=== PATIENT | male | born 1970 | race Caucasian/White ===

== ENCOUNTER 2019-08-06 11:14 | Emergency (ER) | payer SELFPAY ==
--- NOTE | 2019-08-06 11:30 | ER Document Report ---
ED Medical Screen (RME) - General Chief Complaint: Alcohol Withdrawl Stated Complaint: ALCOHOL WITHDRAWL Time Seen by Provider: 08/06/19 11:26 Mode of Arrival: Ambulatory Information source: Patient Notes: This 48-year-old male presents emergency department with high blood pressure. Patient reports he went to [facility] but they sent him over here because his vital signs were off. Patient reports he has a history of high blood pressure has not taken his medications this morning. Patient reports he drinks 1/5 of whiskey every day for the past 20 years. He reports he feels a little anxious but denies chest pain shortness of breath. Patient was instructed to take his morning antihypertensive medications which were clonidine amlodipine and atenolol. I have greeted and performed a rapid initial assessment of this patient. A comprehensive ED assessment and evaluation of the patient, analysis of test results and completion of the medical decision making process will be conducted by additional ED providers. Dictation of this chart was performed using voice recognition software; therefore, there may be some unintended grammatical errors. - Related Data Allergies/Adverse Reactions: No Known Allergies Allergy (Verified 08/06/19 11:26) Physical Exam - Vital signs Vitals: Temp Pulse Resp BP Pulse Ox 97.9 F 137 H 22 H 211/133 H 98 08/06/19 11:21 08/06/19 11:21 08/06/19 11:21 08/06/19 11:21 08/06/19 11:21 Course - Vital Signs Vital signs: Temp Pulse Resp BP Pulse Ox 97.9 F 137 H 22 H 211/133 H 98 08/06/19 11:21 08/06/19 11:21 08/06/19 11:21 08/06/19 11:21 08/06/19 11:21
[2019-08-06 12:08] LABS: ABSOLUTE LYMPHOCYTES (AUTO) 1.1 10^3/uL (0.5-4.7); ABSOLUTE MONOCYTES (AUTO) 0.4 10^3/uL (0.1-1.4); ABSOLUTE NEUT (AUTO) 6.1 10^3/uL (1.7-8.2); BASOPHILS % (AUTO) 0.5 % (0-2); EOSINOPHILS % (AUTO) 0.2 % (0-6); HEMATOCRIT 47.8 % (37.9-51.0); HEMOGLOBIN 16.2 g/dL (13.5-17.0); LYMPHOCYTES % (AUTO) 14.5 % (13-45); MEAN CORPUSCULAR HEMOGLOBIN 30.9 pg (27.0-33.4); MEAN CORPUSCULAR VOLUME 91 fl (80-97); PLATELET COUNT 130 10^3/uL (150-450); RED BLOOD COUNT 5.25 10^6/uL (4.35-5.55); RED CELL DISTRIBUTION WIDTH 14.4 % (11.5-14.0); SEGMENTED NEUTROPHILS % (AUTO) 79.8 % (42-78); TOTAL CELLS COUNTED % (AUTO) 100 %; WHITE BLOOD COUNT 7.7 10^3/uL (4.0-10.5)
--- NOTE | 2019-08-06 12:12 | EKG REPORT ---
SEVERITY:- ABNORMAL ECG - SINUS TACHYCARDIA PROBABLE INFERIOR INFARCT, OLD , CLINICAL CORRELATION NEEDED. : Confirmed by: Nicholas Amin MD 06-Aug-2019 12:11:43
[2019-08-06 12:15] LABS: APPEARANCE,URINE SLIGHTLY-CLOUDY; BILIRUBIN,URINE SMALL (NEGATIVE); COLOR,URINE AMBER; GLUCOSE, URINE NEGATIVE (NEGATIVE); KETONES,URINE 20 mg/dL (NEGATIVE); LEUKOCYTE ESTERASE,URINE TRACE (NEGATIVE); NITRITE,URINE NEGATIVE (NEGATIVE); PROTEIN,URINE >=500 mg/dL (NEGATIVE); URINE SPECIFIC GRAVITY 1.028; UROBILINOGEN,URINE NEGATIVE mg/dL (<2.0)
[2019-08-06 12:25] LABS: URINE AMPHETAMINES SCREEN NEGATIVE; URINE BARBITURATES SCREEN NEGATIVE; URINE COCAINE SCREEN NEGATIVE; URINE MARIJUANA (THC) SCREEN NEGATIVE; URINE METHADONE SCREEN NEGATIVE; URINE PHENCYCLIDINE SCREEN NEGATIVE
[2019-08-06] MEDS ORDERED: NORMAL SALINE 1000 ML 1,000 ML IV PRN (12:25)
[2019-08-06] MEDS ORDERED: THIAMINE HCL 100 MG, FOLIC ACID 1 MG in NORMAL SALINE 250 ML IV ONE (12:25)
[2019-08-06 12:27] LABS: URINE BENZODIAZEPINES SCREEN UNCONFIRMED POSITIVE
[2019-08-06 12:28] LABS: ALBUMIN 5.1 g/dL (3.5-5.0); ALKALINE PHOSPHATASE 98 U/L (38-126); ANION GAP 14 (5-19); ASPARTATE AMINO TRANSFERASE 205 U/L (17-59); BILIRUBIN,DIRECT 0.3 mg/dL (0.0-0.4); BILIRUBIN,TOTAL 1.1 mg/dL (0.2-1.3); BLOOD UREA NITROGEN 8 mg/dL (7-20); CALCIUM 9.6 mg/dL (8.4-10.2); CARBON DIOXIDE 27 mmol/L (22-30); CHLORIDE 98 mmol/L (98-107); GLUCOSE 116 mg/dL (75-110); POTASSIUM 3.4 mmol/L (3.6-5.0); TOTAL PROTEIN 8.8 g/dL (6.3-8.2)
[2019-08-06] MEDS ORDERED: LORAZEPAM INJ 2 MG/1 ML VIAL IV ONE (12:33)
[2019-08-06 12:34] LABS: ACETAMINOPHEN < 10 ug/mL (10-30); ALCOHOL < 10 mg/dL (NONE DETECTED); SALICYLATE < 1.0 mg/dL (2.0-20.0)
[2019-08-06] MEDS ORDERED: THIAMINE HCL INJ 200 MG/2 ML VIAL ONE (12:35)
[2019-08-06] MEDS ORDERED: FOLIC ACID INJ 5 MG/1 ML 10 ML VIAL ONE (12:40)
[2019-08-06] MEDS ORDERED: LABETALOL HCL INJ 20 MG/4 ML DISP.SYRIN IV ONE (12:47)
--- NOTE | 2019-08-06 12:55 | ER Document Report ---
ED General - General Chief Complaint: Alcohol Withdrawl Stated Complaint: ALCOHOL WITHDRAWL Time Seen by Provider: 08/06/19 11:26 Primary Care Provider: ROXANNE GRAY MD [Primary Care Provider] - Follow up as needed ROSE ESCOBAR MD [ACTIVE STAFF] - Follow up as needed Mode of Arrival: Ambulatory - [facility] Notes: Patient is a 48-year-old male with history of alcohol dependence, depression, anxiety, and hypertension who presents at the request of the rehab facility for evaluation for having elevated blood pressure. Patient states that he was going there because they had a bed for him to detox from alcohol. Patient states that he drinks 1/5 of whiskey every day since 2009. His last drink was 1.5 days ago. Patient states that he has been able to eat and drink, but does have decreased p.o. intake. He is urinating normally and having normal bowel movements. Denies drug allergies. He has no SI or HI. No visual or auditory hallucinations. Patient states his blood pressure at that time was 190s over 120s, but patient did not take any of his blood pressure medicines this morning. He did take his blood pressure medicines when he got here which include amlodipine, atenolol, and clonidine. Denies any headache, fever, neck pain, changes in vision/speech/mentation/hearing, URI, sore throat, chest pain, palpitations, syncope, cough, shortness of breath, wheeze, dyspnea, abdominal pain, nausea/vomiting/diarrhea, urinary retention, dysuria, hematuria, loss of control of bowel or bladder, numbness/tingling, saddle anesthesia, muscle paralysis/weakness, or rash. - Related Data Allergies/Adverse Reactions: No Known Allergies Allergy (Verified 08/06/19 11:26) Past Medical History - General Information source: Patient - Social History Smoking Status: Current Every Day Smoker Family History: Reviewed & Not Pertinent Patient has suicidal ideation: No Patient has homicidal ideation: No Review of Systems - Review of Systems -: Yes All other systems reviewed and negative Physical Exam - Vital signs Vitals: Temp Pulse Resp BP Pulse Ox 97.9 F 137 H 22 H 211/133 H 98 08/06/19 11:21 08/06/19 11:21 08/06/19 11:21 08/06/19 11:21 08/06/19 11:21 - Notes Notes: PHYSICAL EXAMINATION: GENERAL: Well-appearing, well-nourished and in no acute resp distress. Pt does appear just a little shaky at times. A&Ox4. Answers questions appropriately. HEAD: Atraumatic, normocephalic. EYES: Pupils equal round and reactive to light, extraocular movements intact, sclera anicteric, conjunctiva are normal. ENT: Nares patent and without discharge. oropharynx clear without exudates. No tonsilar hypertrophy or erythema. Moist mucous membranes. NECK: Normal range of motion, supple without lymphadenopathy LUNGS: Breath sounds clear to auscultation bilaterally and equal. No wheezes rales or rhonchi. HEART: Regular rate and rhythm without murmurs, rubs, gallops. ABDOMEN: Soft, nontender, nondistended abdomen. No guarding, no rebound. Normal bowel sounds present. No CVA tenderness bilaterally. Musculoskeletal: FROM to passive/active. Strength 5+/5. Extremities: No cyanosis, clubbing, or edema b/l. Peripheral pulses 2+. Cap illary refill less than 3 seconds. NEUROLOGICAL: Cranial nerves grossly intact. Normal speech, normal gait. Normal sensory, motor exams PSYCH: Normal mood, normal affect. SKIN: Warm, Dry, normal turgor, no rashes or lesions noted. Course - Re-evaluation Re-evalutation: 08/06/19 12:55 Pt did present with tachycardia and significant hypertension, otherwise asymptomatic, but has improved with HR of 88, BP 154/114, and RR of 20, O2 of 96% on RA. He does appear a little shaky. Meds and fluids have been ordered. Labs are otherwise acceptable. 08/06/19 13:46 Patient is an afebrile, well-hydrated, 48-year-old male who presents with elevated blood pressure, otherwise asymptomatic. Vitals are acceptable without significant tachycardia, tachypnea, or hypoxia. PE is otherwise unremarkable. Patient is nontoxic-appearing and is tolerating p.o. without difficulty. Patient's blood pressure is significantly improved with the lowest blood pressure of 123/99. Labs are unremarkable. No further work-up warranted. Patient received fluids, thiamine, folic acid, blood pressure meds, and a dose of Ativan. He has not had any chest pain, shortness of breath, dyspnea, headache, or dysuria. Patient is otherwise medically cleared to go to detox. Low suspicion for any endorgan damage, sepsis, endocarditis, acute intracranial pathology, meningitis, fracture, acute abdomen, or other systemic infection at this time. Patient is aware that this condition can change from initial presentation and needs to monitor symptoms closely for any acute changes. Conservative measures otherwise for symptoms. Recheck with your PCM in 3-5 days or as needed otherwise. Return to the ED with any worsening/concerning symptoms otherwise as reviewed discharge. Patient is in agreement. Sherron is ready for the patient and his friend who is in the room will be taking him upon discharge. - Vital Signs Vital signs: Temp Pulse Resp BP Pulse Ox 97.9 F 137 H 28 H 156/105 H 95 08/06/19 11:21 08/06/19 11:21 08/06/19 14:16 08/06/19 14:16 08/06/19 14:16 - Laboratory Result Diagrams: 08/06/19 11:35 08/06/19 11:35 Laboratory results interpreted by me: 08/06/19 08/06/19 08/06/19 11:35 11:35 11:35 RDW 14.4 H Plt Count 130 L Seg Neutrophils % 79.8 H Potassium 3.4 L Glucose 116 H AST 205 H Total Protein 8.8 H Albumin 5.1 H Urine Protein >=500 H Urine Ketones 20 H Urine Blood SMALL H Urine Bilirubin SMALL H Ur Leukocyte Esterase TRACE H Salicylates < 1.0 L Acetaminophen < 10 L Discharge - Discharge Clinical Impression: Elevated blood pressure reading, Withdrawal complaint Condition: Stable Disposition: HOME, SELF-CARE Additional Instructions: Maintain adequate fluid and food intake Healthy diet Monitor for any worsening symptoms Avoid drug/alcohol use Stop smoking Make sure you are staying hydrated enough to urinate and have normal BM's Recheck with your PCM in 3-5 days or as needed You are to go directly to [facility] upon discharge* Return to the ED with any worsening symptoms and/or development of fever, headache, changes in behavior/mentation/vision/speech, chest pain, palpitations, syncope, shortness of breath, trouble breathing, abdominal pain, n/v/d, blood in stool/urine, loss of control of bowel/bladder, urinary retention, muscle weakness/paralysis, saddle anesthesia, numbness/tingling, suicidal/homicidal ideations, visual/auditory hallucinations, or other worsening symptoms that are concerning to you. Forms: Elevated Blood Pressure, Smoking Cessation Education Referrals: ROXANNE GRAY MD [Primary Care Provider] - Follow up as needed ROSE ESCOBAR MD [ACTIVE STAFF] - Follow up as needed
[2019-08-06 14:20] VITALS: BP 156/105
== END 2019-08-06 14:28 | disposition home or self-care (01) ==
LOC: ER 11:14
DX: I10 Essential (primary) hypertension (principal); Z79.899 Other long term (current) drug therapy; F10.239 Alcohol dependence with withdrawal, unspecified; F17.200 Nicotine dependence, unspecified, uncomplicated; R00.0 Tachycardia, unspecified
CPT/HCPCS: 93005; 36415; 80307 ×4; 85025; 80053; 81001; 93010; J3490 ×2; J2060; J3411; J7030; J7050; 96361; 96365; 96375; 99285

== ENCOUNTER 2019-09-17 10:35 | Inpatient (IN) | payer OTHER ==
[2019-09-17] MEDS ORDERED: HYDROXYZINE PAMOATE 25 MG CAPSULE PO ONE (11:22)
[2019-09-17] MEDS ORDERED: ONDANSETRON HCL 8 MG TABLET PO ONE (11:22)
--- NOTE | 2019-09-17 11:24 | ER Document Report ---
ED Medical Screen (RME) - General Chief Complaint: Alcohol Withdrawl Stated Complaint: ETOH WITHDRAWAL Time Seen by Provider: 09/17/19 11:15 Primary Care Provider: ROXANNE GRAY MD [Primary Care Provider] - Follow up as needed Mode of Arrival: Ambulatory Information source: Patient Notes: 49-year-old male presents to the emergency department with EtOH abuse and withdrawal. Reports he is in the habit of drinking 1/5 of bourbon a day for the past 10 years. He reports he usually starts off his morning drinking but he has not this morning. Last drink was 0200 this morning. Patient reports he has had abdominal pain nausea and vomiting for the last couple days. Report he vomited several times on the way here. Patient is very shaky. Denies drugs. I have greeted and performed a rapid initial assessment of this patient. A comprehensive ED assessment and evaluation of the patient, analysis of test results and completion of the medical decision making process will be conducted by additional ED providers. TRAVEL OUTSIDE OF THE [place] IN LAST 30 DAYS: No - Related Data Allergies/Adverse Reactions: No Known Allergies Allergy (Verified 08/06/19 11:26) Past Medical History - Social History Chew tobacco use (# tins/day): No Frequency of alcohol use: 1/5th Alcohol daily Drug Abuse: None Physical Exam - Vital signs Vitals: Temp Pulse Resp BP Pulse Ox 97.5 F 139 H 20 177/106 H 98 09/17/19 11:04 09/17/19 11:04 09/17/19 11:04 09/17/19 11:04 09/17/19 11:04 Course - Vital Signs Vital signs: Temp Pulse Resp BP Pulse Ox 97.5 F 139 H 20 177/106 H 98 09/17/19 11:04 09/17/19 11:04 09/17/19 11:04 09/17/19 11:04 09/17/19 11:04 Doctor's Discharge - Discharge Referrals: ROXANNE GRAY MD [Primary Care Provider] - Follow up as needed
[2019-09-17] MEDS ORDERED: DIAZEPAM 5 MG TABLET PO ONE ×2 (11:47→13:06)
--- NOTE | 2019-09-17 11:56 | ER Document Report ---
ED General - General Chief Complaint: Alcohol Withdrawl Stated Complaint: ETOH WITHDRAWAL Time Seen by Provider: 09/17/19 11:15 Primary Care Provider: ROXANNE GRAY MD [Primary Care Provider] - Follow up as needed Mode of Arrival: Ambulatory Notes: 49-year-old male presents with possible alcohol withdrawal. Patient states he has been drinking 1/5 of bourbon every day for the last 10 years and last drink was approximately 2:00 this morning. Patient states he feels anxious, has trem ors, nausea/vomiting, abdominal pain, feeling sweaty for the past few days. Patient states he has gone into withdrawal before requiring admission however has never had seizures. TRAVEL OUTSIDE OF THE [place] IN LAST 30 DAYS: No - Related Data Allergies/Adverse Reactions: No Known Allergies Allergy (Verified 08/06/19 11:26) Past Medical History - General Information source: Patient - Social History Smoking Status: Current Every Day Smoker Chew tobacco use (# tins/day): No Frequency of alcohol use: 1/5th Alcohol daily Drug Abuse: None Family History: Reviewed & Not Pertinent Patient has suicidal ideation: No Patient has homicidal ideation: No Review of Systems - Review of Systems Notes: Constitutional: Positive for anxiety and diaphoresis. Negative for fever. HENT: Negative for sore throat. Eyes: Negative for visual changes. Cardiovascular: Negative for chest pain. Respiratory: Negative for shortness of breath. Gastrointestinal: Positive for abdominal pain, nausea, vomiting. Negative for diarrhea. Genitourinary: Negative for dysuria. Musculoskeletal: Negative for back pain. Skin: Negative for rash. Neurological: Positive for tremors. Negative for headaches, weakness or numbness. 10 point ROS negative except as marked above and in HPI. Physical Exam - Vital signs Vitals: Temp Pulse Resp BP Pulse Ox 97.5 F 139 H 20 177/106 H 98 09/17/19 11:04 09/17/19 11:04 09/17/19 11:04 09/17/19 11:04 09/17/19 11:04 - Notes Notes: GENERAL: Well-appearing, well-nourished and anxious. HEAD: Atraumatic, normocephalic. EYES: Extraocular movements intact, sclera anicteric, conjunctiva are normal. NECK: Normal range of motion, supple without lymphadenopathy or JVD. LUNGS: Breath sounds clear to auscultation bilaterally and equal. No wheezes rales or rhonchi. HEART: Regular rate and rhythm without murmurs, rubs or gallops. ABDOMEN: Soft, nontender. No guarding, no rebound. No masses appreciated. EXTREMITIES: Normal range of motion, no pitting or edema. No clubbing or cyanosis. NEUROLOGICAL: Cranial nerves II through XII grossly intact. Normal speech, normal gait. PSYCH: Normal mood, normal affect. SKIN: Warm, Dry, normal turgor, no rashes or lesions noted. Course - Re-evaluation Re-evalutation: 09/17/19 11:56 patient presents for possible alcohol withdrawal. Patient has tremors, anxiety, abdominal pain, nausea/vomiting. Patient appears anxious. Patient abdomen soft nontender. CIWA ordered along with lab work. Vistaril, Zofran, Valium ordered. 09/17/19 12:17 CIWA 13 09/17/19 13:12 Pt continues to have tremor and elevated BP. Discussed pt with Dr. Tejada, attending, who recommended another dose of Valium and Ativan IV and admission once labwork resulted. 09/17/19 14:07 Pt's Mg is 1.0 and K is 2.8. 09/17/19 14:[address] Montiel, hospitalist, who stated that pt may need ICU due to benzo drip. Discussed with Dr. William, heel layer, who accepted pt for admission. - Vital Signs Vital signs: Temp Pulse Resp BP Pulse Ox 97.5 F 139 H 20 203/135 H 96 09/17/19 11:04 09/17/19 11:04 09/17/19 14:00 09/17/19 13:01 09/17/19 14:00 - Laboratory Result Diagrams: 09/17/19 13:00 09/17/19 13:00 Laboratory results interpreted by me: 09/17/19 09/17/19 13:00 13:00 RDW 15.6 H Plt Count 120 L Potassium 2.8 L* Chloride 86 L Carbon Dioxide 20 L Anion Gap 31 H BUN 4 L Glucose 161 H Magnesium 1.0 L* Total Bilirubin 1.9 H Direct Bilirubin 1.1 H AST 375 H Alkaline Phosphatase 145 H Total Protein 8.9 H Albumin 5.2 H Lipase 361.1 H Salicylates < 1.0 L Acetaminophen < 10 L Discharge - Discharge Clinical Impression: Hypokalemia, Hypomagnesemia Alcohol withdrawal Qualifiers: Complication of substance-induced condition: with unspecified complication Qualified Code(s): F10.239 - Alcohol dependence with withdrawal, unspecified Condition: Stable Disposition: ADMITTED INPATIENT Admitting Provider: Stewart (Public Service Representative) Unit Admitted: ICU Referrals: ROXANNE GRAY MD [Primary Care Provider] - Follow up as needed
[2019-09-17] MEDS ORDERED: ONDANSETRON 4 MG TAB.RAPDIS ONE (12:20)
[2019-09-17] MEDS: NORMAL SALINE 1000 ML 1,000 ML IV PRN ×2 (13:01→13:33)
[2019-09-17] MEDS ORDERED: LORAZEPAM INJ 2 MG/1 ML VIAL IV ONE ×2 (13:06→14:05)
[2019-09-17 13:22] LABS: HEMATOCRIT 46.3 % (37.9-51.0); HEMOGLOBIN 16.5 g/dL (13.5-17.0); MEAN CORPUSCULAR HEMOGLOBIN 31.5 pg (27.0-33.4); MEAN CORPUSCULAR HGB CONC 35.5 g/dL (32.0-36.0); MEAN CORPUSCULAR VOLUME 89 fl (80-97); PLATELET COUNT 120 10^3/uL (150-450); RED BLOOD COUNT 5.23 10^6/uL (4.35-5.55); RED CELL DISTRIBUTION WIDTH 15.6 % (11.5-14.0); WHITE BLOOD COUNT 10.2 10^3/uL (4.0-10.5)
[2019-09-17 13:38] LABS: INTERNATIONAL RATION (INR) 0.97; PROTHROMBIN TIME 12.9 SEC (11.4-15.4)
--- NOTE | 2019-09-17 13:43 | EKG REPORT ---
SEVERITY:- ABNORMAL ECG - SINUS TACHYCARDIA BORDERLINE INFERIOR Q WAVES REPOL ABNRM SUGGESTS ISCHEMIA, DIFFUSE LEADS BIATRIAL ENLARGEMENT : Confirmed by: Nicholas Amin MD 17-Sep-2019 13:43:04
[2019-09-17 13:44] LABS: ALBUMIN 5.2 g/dL (3.5-5.0); ALCOHOL 32 mg/dL (NONE DETECTED); ALKALINE PHOSPHATASE 145 U/L (38-126); ASPARTATE AMINO TRANSFERASE 375 U/L (17-59); BILIRUBIN,DIRECT 1.1 mg/dL (0.0-0.4); BILIRUBIN,TOTAL 1.9 mg/dL (0.2-1.3); BLOOD UREA NITROGEN 4 mg/dL (7-20); CALCIUM 9.6 mg/dL (8.4-10.2); CHLORIDE 86 mmol/L (98-107); GLUCOSE 161 mg/dL (75-110); TOTAL PROTEIN 8.9 g/dL (6.3-8.2)
[2019-09-17 13:45] LABS: ACETAMINOPHEN < 10 ug/mL (10-30); SALICYLATE < 1.0 mg/dL (2.0-20.0)
[2019-09-17 13:49] LABS: CARBON DIOXIDE 20 mmol/L (22-30)
[2019-09-17 13:51] LABS: ANION GAP 31 (5-19)
[2019-09-17 13:53] LABS: POTASSIUM 2.8 mmol/L (3.6-5.0)
[2019-09-17] MEDS ORDERED: POTASSIUM CHLORIDE 20 MEQ PACKET PO ONE (14:05)
[2019-09-17] MEDS ORDERED: POTASSI CL 20 MEQ/50 ML RIDER 20 MEQ/50 ML RTUPB IV ONE (14:05)
[2019-09-17] MEDS ORDERED: HYDROCHLOROTHIAZIDE 25 MG TABLET PO ONE (14:12)
[2019-09-17 14:14] LABS: ABSOLUTE LYMPHOCYTES# (MANUAL) 1.8 10^3/uL (0.5-4.7); ABSOLUTE MONOCYTES # (MANUAL) 0.5 10^3/uL (0.1-1.4); BASOPHILS % (MANUAL) 0 % (0-2); EOSINOPHILS % (MANUAL) 0 % (0-6); LYMPHOCYTES % (MANUAL) 18 % (13-45); MONOCYTES % (MANUAL) 5 % (3-13); SEGMENTED NEUTROPHILS % (MAN) 77 % (42-78); TOTAL CELLS COUNTED 100
[2019-09-17 14:15] LABS: ANISOCYTOSIS SLIGHT; PLATELET COMMENT DECREASED
[2019-09-17] MEDS ORDERED: AMLODIPINE BESYLATE 10 MG TABLET PO ONE (14:15)
[2019-09-17] MEDS ORDERED: NS IV ONE (14:17)
[2019-09-17] MEDS ORDERED: POTASSI CL IV ONE (14:17)
[2019-09-17] MEDS: MAGNESIUM SULFATE/D5W 1 GM/100 ML RTUPB IV SCH ×2 (14:44→15:24)
[2019-09-17] MEDS ORDERED: LORAZEPAM 24 MG/240 ML BAG IV PRN (15:26)
[2019-09-17] MEDS ORDERED: ONDANSETRON HCL INJ/PF 4 MG/2 ML SDV IV PRN (15:40)
[2019-09-17] MEDS ORDERED: HYDRALAZINE HCL INJ/PF 20 MG/1 ML SDV IV PRN (15:50)
[2019-09-17 16:23] LABS: APPEARANCE,URINE SLIGHTLY-CLOUDY; BILIRUBIN,URINE NEGATIVE (NEGATIVE); COLOR,URINE AMBER; GLUCOSE, URINE 50 mg/dL (NEGATIVE); KETONES,URINE 20 mg/dL (NEGATIVE); LEUKOCYTE ESTERASE,URINE NEGATIVE (NEGATIVE); NITRITE,URINE NEGATIVE (NEGATIVE); PROTEIN,URINE >=500 mg/dL (NEGATIVE); URINE SPECIFIC GRAVITY 1.022
--- NOTE | 2019-09-17 16:24 | CRITICAL CARE ADMISSION REPORT ---
HPI Date:: 09/17/19 - Critical Care Attending Note HPI: Pt is a 49 yo man with alcohol abuse who drinks 1/5 Vodka each day. His last drink was around 2 am this am. He presents to the ED with N/V, HTN, tremors. He was found to be in alcohol withdrawal. He received several dosed of IV ativan and was ultimately started on an ativan infusion. Upon my assessment of the pt, he is still in the ED awaiting an ICU bed. He states he has tried to detox from ETOH before and ended up in the hospital for 5 days for ETOH withdrawal. He states he has never had to be intubated. He denies any F/C/CP/SOA/Melena/hemoptysis/hematochezia. Past Medical History Past Medical History: HTN Depression Pulmonary Medical History: Reports: None Social/Family History - Social History Smoking Status: Current Every Day Smoker Frequency of Alcohol Use: Heavy Last Alcohol Use: 09/17/19 - Medication/Allergies Home Medications: Amlodipine Besylate [Norvasc 10 mg Tablet] 1 mg PO DAILY 09/17/19 Atenolol 100 mg PO DAILY 09/17/19 Allergies/Adverse Reactions: No Known Allergies Allergy (Verified 08/06/19 11:26) Review of Systems Review of Systems: per HPI Physical Exam Vital Signs: Temp Pulse Resp BP Pulse Ox 98.2 F 139 H 29 H 158/90 H 94 09/17/19 16:05 09/17/19 11:04 09/17/19 16:05 09/17/19 16:05 09/17/19 16:05 Intake & Output 09/16/19 09/17/19 09/18/19 06:59 06:59 06:59 Intake Total 1600 Balance 1600 Weight 109.5 kg Weight/Height Weight 109.5 kg Height 5 ft 9 in General appearance: PRESENT: well-developed, well-nourished, other - Ill- apperating, tremulous, diaphoretic Head exam: PRESENT: atraumatic, normocephalic Respiratory exam: PRESENT: clear to auscultation katerina, unlabored Cardiovascular exam: PRESENT: tachycardia GI/Abdominal exam: PRESENT: soft, other - non-tender,non-distended Extremities exam: PRESENT: other - no edema Neurological exam: PRESENT: alert, awake, other - tremulous Psychiatric exam: PRESENT: anxious Laboratory/Radiographs Laboratory Results: 09/17/19 13:00 09/17/19 13:00 09/17/19 09/17/19 13:00 13:00 WBC 10.2 RBC 5.23 Hgb 16.5 Hct 46.3 MCV 89 MCH 31.5 MCHC 35.5 RDW 15.6 H Plt Count 120 L Seg Neutrophils % Not Reportable Sodium 137.1 Potassium 2.8 L* Chloride 86 L Carbon Dioxide 20 L Anion Gap 31 H BUN 4 L Creatinine 1.02 Est GFR ( Amer) > 60 Glucose 161 H Calcium 9.6 Magnesium 1.0 L* Total Bilirubin 1.9 H AST 375 H Alkaline Phosphatase 145 H Total Protein 8.9 H Albumin 5.2 H Lipase 361.1 H Critical Time Critical Time (minutes): 45 -: The care of a critically ill patient is dynamic. This note represents a static moment in the admission process. Orders and treatments may be given simultaneously and urgently, and time is not contact center representative of the treatment process. This patient requires Critical Care secondary to life threatening organ or limb dysfunction. Without Critical Care services, the patient is at risk for increased mortality and morbidity. Provider Note Provider Note: Assessment: Critically ill 49yo man with acute alcohol withdrawal, alcohol abuse, HTN Plan: 1. Respiratory: stable on NC. Continue to monitor respiratory status closely 2. CV.HTN. Resume home BP meds. Prn labetalol and hydralazine 3. Pscyh: acute alcohol withdrawal. Continue ativan drip while in ED. Once pt gets to ICU, will d/c ativan drip and start precedex. CIWA scale. IV thiamine and folic acid. 4. Electroyles: hypokalemia and hypomagnesemia. Potassium and magnesium replaced. Will repeat potassium and magnesium levels later today 5. Nutrition:NPO 6. Endocrine: monitor blood sugars 7. Prophylaxis: sq heparin Critical care time= 45 min, excluding procedures
[2019-09-17] MEDS ORDERED: DEXTROSE 50%-WATER 25 GM/50 ML DISP.SYRIN IV PRN ×2 (16:25)
[2019-09-17] MEDS ORDERED: GLUCAGON,HUMAN RECOMB 1 MG INJ IM PRN (16:25)
[2019-09-17] MEDS ORDERED: DEXTROSE 40% GEL 15 GM TUBE PO PRN ×2 (16:25)
[2019-09-17] MEDS: DEXMEDETOMIDINE IN NS 400 MCG/100 ML RTUPB IV PRN (17:45)
[2019-09-17] MEDS: THIAMINE HCL 100 MG, FOLIC ACID 1 MG in NORMAL SALINE 250 ML IV SCH (18:00)
[2019-09-17] MEDS ORDERED: INFLUENZA QUAD (6MOS+) 2019-20 VAC 0.5 ML SYR IM ONE (18:03)
[2019-09-17] MEDS: LABETALOL HCL INJ 20 MG/4 ML DISP.SYRIN IV PRN (18:15)
[2019-09-17] MEDS: INSULIN REG, HUMAN 100 UNIT/ML 3 ML VIAL (PYX) SUBCUT SCH (18:23)
[2019-09-17 19:46] LABS: ANION GAP 16 (5-19); BLOOD UREA NITROGEN 3 mg/dL (7-20); CALCIUM 7.7 mg/dL (8.4-10.2); CARBON DIOXIDE 25 mmol/L (22-30); CHLORIDE 95 mmol/L (98-107); GLUCOSE 110 mg/dL (75-110)
[2019-09-17 19:49] LABS: POTASSIUM 2.8 mmol/L (3.6-5.0)
[2019-09-17] MEDS ORDERED: MAGNESIUM SULFATE/D5W 1 GM/100 ML RTUPB IV ONE (20:17)
[2019-09-17] MEDS: RINGERS SOLUTION,LACTATED 1,000 ML IV PRN (20:41)
[2019-09-17] MEDS: POTASSI CL 20 MEQ/50 ML RIDER 20 MEQ/50 ML RTUPB IV SCH ×2 (20:46→23:29)
[2019-09-17 20:51] LABS: URINE AMPHETAMINES SCREEN NEGATIVE; URINE BARBITURATES SCREEN NEGATIVE; URINE COCAINE SCREEN NEGATIVE; URINE MARIJUANA (THC) SCREEN NEGATIVE; URINE METHADONE SCREEN NEGATIVE; URINE PHENCYCLIDINE SCREEN NEGATIVE
[2019-09-17 20:53] LABS: URINE BENZODIAZEPINES SCREEN UNCONFIRMED POSITIVE
[2019-09-18] MEDS: DEXMEDETOMIDINE IN NS 400 MCG/100 ML RTUPB IV PRN (01:06)
[2019-09-18] MEDS: INSULIN REG, HUMAN 100 UNIT/ML 3 ML VIAL (PYX) SUBCUT SCH ×3 (01:09→13:15)
[2019-09-18 02:44] LABS: HEMATOCRIT 37.6 % (37.9-51.0); MEAN CORPUSCULAR HEMOGLOBIN 31.5 pg (27.0-33.4); MEAN CORPUSCULAR HGB CONC 35.2 g/dL (32.0-36.0); MEAN CORPUSCULAR VOLUME 90 fl (80-97); RED CELL DISTRIBUTION WIDTH 15.3 % (11.5-14.0); WHITE BLOOD COUNT 4.4 10^3/uL (4.0-10.5)
[2019-09-18 02:48] LABS: HEMOGLOBIN 13.2 g/dL (13.5-17.0)
[2019-09-18 02:59] LABS: ANION GAP 12 (5-19); BLOOD UREA NITROGEN 2 mg/dL (7-20); CARBON DIOXIDE 29 mmol/L (22-30); CHLORIDE 95 mmol/L (98-107); GLUCOSE 111 mg/dL (75-110)
[2019-09-18 03:09] LABS: POTASSIUM 2.7 mmol/L (3.6-5.0)
[2019-09-18 03:14] LABS: PLATELET COUNT 72 10^3/uL (150-450)
[2019-09-18] MEDS: POTASSI CL 20 MEQ/50 ML RIDER 20 MEQ/50 ML RTUPB IV SCH ×3 (03:36→08:51)
[2019-09-18] MEDS ORDERED: MAGNESIUM SULFATE/D5W 1 GM/100 ML RTUPB IV ONE ×2 (04:00→17:31)
[2019-09-18] MEDS: HEPARIN SOD (PORCINE) 5,000 UNIT/ML 1 ML VIAL SUBCUT SCH ×3 (05:46→22:03)
[2019-09-18] MEDS: RINGERS SOLUTION,LACTATED 1,000 ML IV PRN ×2 (07:09→22:11)
[2019-09-18] MEDS ORDERED: (PENDING PHARMACY ID) (Atenolol [Atenolol] 100 MG) PO SCH (10:00)
[2019-09-18] MEDS ORDERED: AMLODIPINE BESYLATE 10 MG TABLET PO SCH (10:00)
[2019-09-18] MEDS: HYDROCHLOROTHIAZIDE 25 MG TABLET PO SCH (10:34)
[2019-09-18] MEDS: AMLODIPINE BESYLATE 10 MG TABLET PO SCH (10:35)
[2019-09-18] MEDS: MULTIVITAMIN TABLET PO SCH (10:35)
[2019-09-18] MEDS: ATENOLOL 50 MG TABLET PO SCH (10:36)
--- NOTE | 2019-09-18 12:13 | PDOC CRITICAL CARE PROG REPORT ---
General Date:: 09/18/19 ICU Day:: 2 Hospital Day:: 2 Resuscitation Status: Full Code Events in the past 12 to 24 Hours:: HR and BP stable. Not agitated. Review of systems relevant to events:: Neuro, CV. Reason for ICU Addmission:: Possible need for high dose ativan and intubation - Medications: Medications reviewed and adjusted accordingly: Yes Vasopressors:: None Sedation:: Precedex Physical Exam Vital Signs: Temp Pulse Resp BP Pulse Ox 98.5 F 96 18 98/71 L 99 09/18/19 08:00 09/18/19 10:00 09/18/19 11:36 09/18/19 11:36 09/18/19 11:00 Intake & Output 09/17/19 09/18/19 09/19/19 06:59 06:59 06:59 Intake Total 4434.2 1050 Output Total 875 200 Balance 3559.2 850 Weight 112.4 kg Weight/Height Weight 112.4 kg Height 5 ft 9 in General appearance: PRESENT: no acute distress, cooperative Head exam: PRESENT: atraumatic, normocephalic Eye exam: PRESENT: EOMI, PERRLA Ear exam: PRESENT: normal external ear exam Mouth exam: PRESENT: dry mucosa Respiratory exam: PRESENT: clear to auscultation katerina. ABSENT: rales, rhonchi, wheezes Cardiovascular exam: PRESENT: RRR. ABSENT: diastolic murmur, rubs, systolic murmur GI/Abdominal exam: PRESENT: normal bowel sounds, soft. ABSENT: distended, guarding, mass, organolmegaly, rebound, tenderness Rectal exam: PRESENT: deferred Extremities exam: PRESENT: full ROM. ABSENT: calf tenderness, clubbing, pedal edema Musculoskeletal exam: PRESENT: ambulatory Neurological exam: PRESENT: alert, altered, awake, oriented to person, oriented to place, oriented to time, oriented to situation Skin exam: PRESENT: dry, intact, warm. ABSENT: cyanosis, rash Laboratory/Radiographs Laboratory Results: 09/18/19 02:27 09/18/19 06:07 09/17/19 09/17/19 09/17/19 13:00 13:00 16:00 WBC 10.2 RBC 5.23 Hgb 16.5 Hct 46.3 MCV 89 MCH 31.5 MCHC 35.5 RDW 15.6 H Plt Count 120 L Seg Neutrophils % Not Reportable Sodium 137.1 Potassium 2.8 L* Chloride 86 L Carbon Dioxide 20 L Anion Gap 31 H BUN 4 L Creatinine 1.02 Est GFR ( Amer) > 60 Est GFR (Non-Af Amer) Glucose 161 H Calcium 9.6 Magnesium 1.0 L* Total Bilirubin 1.9 H AST 375 H Alkaline Phosphatase 145 H Total Protein 8.9 H Albumin 5.2 H Lipase 361.1 H Urine Color PHILOMENA Urine Appearance SLIGHTLY-CLOUDY Urine pH 6.0 Ur Specific Tab[place] 1.022 Urine Protein >=500 H Urine Glucose (UA) 50 H Urine Ketones 20 H Urine Blood MODERATE H Urine Nitrite NEGATIVE Ur Leukocyte Esterase NEGATIVE Urine WBC (Auto) 1 Urine RBC (Auto) 0 09/17/19 09/18/19 09/18/19 19:15 02:27 02:27 WBC 4.4 RBC 4.20 L Hgb 13.2 L D Hct 37.6 L MCV 90 MCH 31.5 MCHC 35.2 RDW 15.3 H Plt Count 72 L Seg Neutrophils % Sodium 135.6 L 136.2 L Potassium 2.8 L* 2.7 L* Chloride 95 L 95 L Carbon Dioxide 25 29 Anion Gap 16 12 BUN 3 L 2 L Creatinine 0.87 0.86 Est GFR ( Amer) > 60 > 60 Est GFR (Non-Af Amer) Glucose 110 111 H Calcium 7.7 L 8.0 L Magnesium 1.4 L 1.5 L Total Bilirubin AST Alkaline Phosphatase Total Protein Albumin Lipase Urine Color Urine Appearance Urine pH Ur Specific Tabiona Urine Protein Urine Glucose (UA) Urine Ketones Urine Blood Urine Nitrite Ur Leukocyte Esterase Urine WBC (Auto) Urine RBC (Auto) 09/18/19 06:07 WBC RBC Hgb Hct MCV MCH MCHC RDW Plt Count Seg Neutrophils % Sodium Cancelled Potassium Cancelled Chloride Cancelled Carbon Dioxide Cancelled Anion Gap Cancelled BUN Cancelled Creatinine Cancelled Est GFR ( Amer) Cancelled Est GFR (Non-Af Amer) Cancelled Glucose Cancelled Calcium Cancelled Magnesium Cancelled Total Bilirubin AST Alkaline Phosphatase Total Protein Albumin Lipase Urine Color Urine Appearance Urine pH Ur Specific Tabiona Urine Protein Urine Glucose (UA) Urine Ketones Urine Blood Urine Nitrite Ur Leukocyte Esterase Urine WBC (Auto) Urine RBC (Auto) All labs, radiographs, diagnostic studies and EKGs were personally reviewed: Yes In addition, reports of radiographic and diagnostic studies were read: Yes Assessment and Plan - Diagnosis (1) Alcohol withdrawal Qualifiers: Complication of substance-induced condition: with unspecified complication Qualified Code(s): F10.239 - Alcohol dependence with withdrawal, unspecified Is this a current diagnosis for this admission?: Yes Plan: Continue ativan. Try off Precedex. If stable consider downgrade. (2) Hypokalemia Is this a current diagnosis for this admission?: Yes Plan: Level still 2.7. Continue loading (3) Hypomagnesemia Is this a current diagnosis for this admission?: Yes Plan: Level 1.5 continue loading. Plan Summary: Give more potassium and magnesium. Try stopping precedex. Critical Time Critical Time (minutes): 35 Level of Care: ICU Anticipated discharge: Home Within: Other - 4-5 days -: 1. The care of a critical patient is a dynamic process. This note is a exhibit display representative synopsis but static in nature. The timeframe for treatments given in order is not necessarily the actual time these treatments may have been done. 2. This patient requires critical care secondary to ongoing requirements for therapy not offered or safe outside the critical care environment. Transfer to a lower level of care will result in altered life or limb morbidity and mortal ity. 3. Multidisciplinary rounds completed. 4. ABCDE bundle addressed.
[2019-09-18] MEDS: MAGNESIUM SULFATE/D5W 1 GM/100 ML RTUPB IV SCH ×2 (13:29→17:32)
[2019-09-18] MEDS: POTASSIUM CHLORIDE 10 MEQ TABLET.ER PO SCH ×2 (13:29→22:00)
[2019-09-18] MEDS ORDERED: DIPHENOXYLATE HCL/ATROP SULF 2.5-0.025 MG TABLET PO PRN (13:32)
[2019-09-18 14:17] LABS: ANION GAP 15 (5-19); BLOOD UREA NITROGEN 2 mg/dL (7-20); CALCIUM 8.6 mg/dL (8.4-10.2); CARBON DIOXIDE 29 mmol/L (22-30); CHLORIDE 90 mmol/L (98-107); GLUCOSE 132 mg/dL (75-110)
[2019-09-18 14:21] LABS: POTASSIUM 2.9 mmol/L (3.6-5.0)
[2019-09-18] MEDS: THIAMINE HCL 100 MG, FOLIC ACID 1 MG in NORMAL SALINE 250 ML IV SCH (17:26)
[2019-09-18] MEDS: LORAZEPAM INJ 2 MG/1 ML VIAL IV PRN (17:33)
[2019-09-18] MEDS: LORAZEPAM 1 MG TABLET PO SCH ×3 (17:33→22:00)
[2019-09-18] MEDS ORDERED: AMLODIPINE BESYLATE 5 MG TABLET PO ONE (21:00)
[2019-09-19] MEDS: LORAZEPAM 1 MG TABLET PO SCH ×6 (01:05→21:39)
[2019-09-19] MEDS: DEXMEDETOMIDINE IN NS 400 MCG/100 ML RTUPB IV PRN ×5 (03:18→23:42)
[2019-09-19 04:13] LABS: HEMATOCRIT 38.9 % (37.9-51.0); HEMOGLOBIN 13.7 g/dL (13.5-17.0); MEAN CORPUSCULAR HEMOGLOBIN 31.7 pg (27.0-33.4); MEAN CORPUSCULAR HGB CONC 35.3 g/dL (32.0-36.0); MEAN CORPUSCULAR VOLUME 90 fl (80-97); RED BLOOD COUNT 4.34 10^6/uL (4.35-5.55); RED CELL DISTRIBUTION WIDTH 15.3 % (11.5-14.0); WHITE BLOOD COUNT 4.6 10^3/uL (4.0-10.5)
[2019-09-19 04:26] LABS: ANION GAP 11 (5-19); CALCIUM 8.8 mg/dL (8.4-10.2); CARBON DIOXIDE 33 mmol/L (22-30); CHLORIDE 94 mmol/L (98-107); GLUCOSE 103 mg/dL (75-110)
[2019-09-19 04:35] LABS: BLOOD UREA NITROGEN < 2 mg/dL (7-20)
[2019-09-19 04:37] LABS: PLATELET COUNT 82 10^3/uL (150-450)
[2019-09-19] MEDS: LORAZEPAM INJ 2 MG/1 ML VIAL IV PRN ×6 (05:31→23:59)
[2019-09-19] MEDS ORDERED: LORAZEPAM INJ 2 MG/1 ML VIAL ONE (06:02)
[2019-09-19] MEDS ORDERED: LORAZEPAM INJ 2 MG/1 ML VIAL IV ONE ×2 (06:02→08:45)
[2019-09-19] MEDS: POTASSIUM CHLORIDE 10 MEQ TABLET.ER PO SCH (06:26)
[2019-09-19] MEDS: HEPARIN SOD (PORCINE) 5,000 UNIT/ML 1 ML VIAL SUBCUT SCH ×3 (06:26→21:02)
--- NOTE | 2019-09-19 07:48 | PDOC CRITICAL CARE PROG REPORT ---
General Date:: 09/19/19 ICU Day:: 3 Hospital Day:: 3 Resuscitation Status: Full Code Events in the past 12 to 24 Hours:: More agitated and in 4 point restraints. Review of systems relevant to events:: Neuro, CV. Reason for ICU Addmission:: Possible need for high dose ativan and intubation - Medications: Medications reviewed and adjusted accordingly: Yes Vasopressors:: None Sedation:: Ativan and precedex Physical Exam Vital Signs: Temp Pulse Resp BP Pulse Ox 98.6 F 90 17 147/94 H 96 09/19/19 03:32 09/18/19 20:00 09/19/19 02:33 09/19/19 02:33 09/19/19 02:33 Intake & Output 09/18/19 09/19/19 09/20/19 06:59 06:59 06:59 Intake Total 4434.2 3465 Output Total 875 2500 Balance 3559.2 965 Weight 112.4 kg 111.9 kg Weight/Height Weight 111.9 kg Height 5 ft 9 in General appearance: PRESENT: obese Head exam: PRESENT: atraumatic, normocephalic Eye exam: PRESENT: conjunctiva pink, EOMI, PERRLA. ABSENT: scleral icterus Ear exam: PRESENT: normal external ear exam Mouth exam: PRESENT: moist, tongue midline Respiratory exam: PRESENT: clear to auscultation katerina. ABSENT: rales, rhonchi, wheezes Cardiovascular exam: PRESENT: tachycardia Vascular exam: PRESENT: normal capillary refill GI/Abdominal exam: PRESENT: normal bowel sounds, soft. ABSENT: distended, guarding, mass, organolmegaly, rebound, tenderness Rectal exam: PRESENT: deferred Extremities exam: PRESENT: full ROM. ABSENT: calf tenderness, clubbing, pedal edema Musculoskeletal exam: PRESENT: normal inspection Neurological exam: PRESENT: alert, altered, awake Psychiatric exam: PRESENT: agitated Skin exam: PRESENT: dry, intact, warm. ABSENT: cyanosis, rash Laboratory/Radiographs Laboratory Results: 09/19/19 03:47 09/19/19 03:47 09/18/19 09/19/19 09/19/19 13:45 03:47 03:47 WBC 4.6 RBC 4.34 L Hgb 13.7 Hct 38.9 MCV 90 MCH 31.7 MCHC 35.3 RDW 15.3 H Plt Count 82 L Sodium 133.8 L 138.1 Potassium 2.9 L* 3.0 L* Chloride 90 L 94 L Carbon Dioxide 29 33 H Anion Gap 15 11 BUN 2 L < 2 L Creatinine 0.83 0.80 Est GFR ( Amer) > 60 > 60 Glucose 132 H 103 Calcium 8.6 8.8 Magnesium 1.9 EKG: SR peaked T-waves. All labs, radiographs, diagnostic studies and EKGs were personally reviewed: Yes In addition, reports of radiographic and diagnostic studies were read: Yes Assessment and Plan - Diagnosis (1) Alcohol withdrawal Qualifiers: Complication of substance-induced condition: with unspecified complication Qualified Code(s): F10.239 - Alcohol dependence with withdrawal, unspecified Is this a current diagnosis for this admission?: Yes Plan: Getting more agitated. Now in restraints for safety. Ativan increased, precedex ordered. No rios for safety's sake. (2) Hypokalemia Is this a current diagnosis for this admission?: Yes Plan: Still at a level of 3.0. Magnesim in normal range. Will give more and try to stabilize potassium as well. (3) Hypomagnesemia Is this a current diagnosis for this admission?: Yes Plan: 2 more grams ordered. Plan Summary: Boost potassium by increasing magnesium. Increased need for ativan. Hitting a peak in terms of ETOH WD at day 3. Critical Time Critical Time (minutes): 35 Level of Care: ICU Anticipated discharge: Home Within: Other - Too soon to speculate. -: 1. The care of a critical patient is a dynamic process. This note is a title insurance sales representative synopsis but static in nature. The timeframe for treatments given in order is not necessarily the actual time these treatments may have been done. 2. This patient requires critical care secondary to ongoing requirements for therapy not offered or safe outside the critical care environment. Transfer to a lower level of care will result in altered life or limb morbidity and mortality. 3. Multidisciplinary rounds completed. 4. ABCDE bundle addressed.
[2019-09-19] MEDS: MAGNESIUM SULFATE/D5W 1 GM/100 ML RTUPB IV SCH ×2 (08:56→09:50)
[2019-09-19] MEDS: HYDROCHLOROTHIAZIDE 25 MG TABLET PO SCH (11:16)
[2019-09-19] MEDS: MULTIVITAMIN TABLET PO SCH (11:16)
[2019-09-19] MEDS: AMLODIPINE BESYLATE 10 MG TABLET PO SCH (11:18)
[2019-09-19] MEDS: ATENOLOL 50 MG TABLET PO SCH (11:19)
[2019-09-19] MEDS: THIAMINE HCL 100 MG, FOLIC ACID 1 MG in NORMAL SALINE 250 ML IV SCH (17:24)
[2019-09-19] MEDS: POTASSI CL 20 MEQ/50 ML RIDER 20 MEQ/50 ML RTUPB IV SCH ×2 (18:18→19:50)
[2019-09-19] MEDS: RINGERS SOLUTION,LACTATED 1,000 ML IV PRN (21:48)
[2019-09-20] MEDS: LORAZEPAM INJ 2 MG/1 ML VIAL IV PRN ×4 (01:54→20:00)
[2019-09-20 04:26] LABS: HEMATOCRIT 38.3 % (37.9-51.0); HEMOGLOBIN 13.5 g/dL (13.5-17.0); MEAN CORPUSCULAR HEMOGLOBIN 31.8 pg (27.0-33.4); MEAN CORPUSCULAR HGB CONC 35.1 g/dL (32.0-36.0); MEAN CORPUSCULAR VOLUME 90 fl (80-97); RED BLOOD COUNT 4.24 10^6/uL (4.35-5.55); RED CELL DISTRIBUTION WIDTH 15.8 % (11.5-14.0); WHITE BLOOD COUNT 5.1 10^3/uL (4.0-10.5)
[2019-09-20 04:40] LABS: ANION GAP 12 (5-19); BLOOD UREA NITROGEN 3 mg/dL (7-20); CALCIUM 8.4 mg/dL (8.4-10.2); CARBON DIOXIDE 31 mmol/L (22-30); CHLORIDE 96 mmol/L (98-107); GLUCOSE 94 mg/dL (75-110); POTASSIUM 3.2 mmol/L (3.6-5.0)
[2019-09-20 04:51] LABS: PLATELET COUNT 99 10^3/uL (150-450)
[2019-09-20] MEDS: HEPARIN SOD (PORCINE) 5,000 UNIT/ML 1 ML VIAL SUBCUT SCH ×3 (06:33→21:02)
[2019-09-20] MEDS: DEXMEDETOMIDINE IN NS 400 MCG/100 ML RTUPB IV PRN (06:33)
--- NOTE | 2019-09-20 07:44 | PDOC CRITICAL CARE PROG REPORT ---
General Date:: 09/20/19 ICU Day:: 4 Hospital Day:: 4 Resuscitation Status: Full Code Events in the past 12 to 24 Hours:: Off violent restraints. Calmer. Still on ativan and precedex Review of systems relevant to events:: Neuro, CV Reason for ICU Addmission:: Possible need for high dose ativan and intubation - Medications: Medications reviewed and adjusted accordingly: Yes Vasopressors:: None Sedation:: Precedex. Physical Exam Vital Signs: Temp Pulse Resp BP Pulse Ox 99.2 F 82 28 H 163/117 H 92 09/20/19 04:18 09/19/19 20:00 09/20/19 06:00 09/20/19 05:41 09/20/19 06:00 Intake & Output 09/19/19 09/20/19 09/21/19 06:59 06:59 06:59 Intake Total 3465 2131.4 Output Total 2500 1250 Balance 965 881.4 Weight 111.9 kg 112.1 kg Weight/Height Weight 112.1 kg Height 5 ft 9 in General appearance: PRESENT: no acute distress, obese Exam: Sedated. Head exam: PRESENT: atraumatic, normocephalic Eye exam: PRESENT: conjunctiva pink, EOMI, PERRLA. ABSENT: scleral icterus Ear exam: PRESENT: normal external ear exam Mouth exam: PRESENT: moist, tongue midline Respiratory exam: PRESENT: clear to auscultation katerina, tachypnea. ABSENT: rales, rhonchi, wheezes Cardiovascular exam: PRESENT: RRR. ABSENT: diastolic murmur, rubs, systolic murmur GI/Abdominal exam: PRESENT: normal bowel sounds, soft. ABSENT: distended, guarding, mass, organolmegaly, rebound, tenderness Rectal exam: PRESENT: deferred Extremities exam: PRESENT: full ROM. ABSENT: calf tenderness, clubbing, pedal edema Musculoskeletal exam: PRESENT: normal inspection Neurological exam: PRESENT: altered Psychiatric exam: PRESENT: agitated Skin exam: PRESENT: dry, intact, warm. ABSENT: cyanosis, rash Laboratory/Radiographs Laboratory Results: 09/20/19 03:55 09/20/19 03:55 09/19/19 09/20/19 09/20/19 20:55 03:55 03:55 WBC 5.1 RBC 4.24 L Hgb 13.5 Hct 38.3 MCV 90 MCH 31.8 MCHC 35.1 RDW 15.8 H Plt Count 99 L Sodium 138.7 Potassium 3.2 L 3.2 L Chloride 96 L Carbon Dioxide 31 H Anion Gap 12 BUN 3 L Creatinine 0.66 Est GFR ( Amer) > 60 Glucose 94 Calcium 8.4 Magnesium 1.9 All labs, radiographs, diagnostic studies and EKGs were personally reviewed: Yes In addition, reports of radiographic and diagnostic studies were read: Yes Assessment and Plan - Diagnosis (1) Alcohol withdrawal Qualifiers: Complication of substance-induced condition: with unspecified complication Qualified Code(s): F10.239 - Alcohol dependence with withdrawal, unspecified Is this a current diagnosis for this admission?: Yes Plan: Still agitated. On precedex and will try and discontinue this today. Non violent restraints. (2) Hypokalemia Is this a current diagnosis for this admission?: Yes Plan: He is still hypokalemic despite potassium loading and magnesium replacement. However he is not showing dysrythmias and has no cardiac hx. Will watch for now in view of peaked T-waves. (3) Hypomagnesemia Is this a current diagnosis for this admission?: Yes Plan: Resolved Plan Summary: Lighten sedation by stopping precedex. If more awake allow to eat. Critical Time Critical Time (minutes): 35 Level of Care: ICU Anticipated discharge: Home Within: Other - Too soon to tell. -: 1. The care of a critical patient is a dynamic process. This note is a sales representative adding machines synopsis but static in nature. The timeframe for treatments given in order is not necessarily the actual time these treatments may have been done. 2. This patient requires critical care secondary to ongoing requirements for therapy not offered or safe outside the critical care environment. Transfer to a lower level of care will result in altered life or limb morbidity and mortality. 3. Multidisciplinary rounds completed. 4. ABCDE bundle addressed.
[2019-09-20] MEDS: AMLODIPINE BESYLATE 10 MG TABLET PO SCH (09:24)
[2019-09-20] MEDS: MULTIVITAMIN TABLET PO SCH (09:24)
[2019-09-20] MEDS: ATENOLOL 50 MG TABLET PO SCH (09:24)
[2019-09-20] MEDS: HYDROCHLOROTHIAZIDE 25 MG TABLET PO SCH (09:25)
[2019-09-20] MEDS: RINGERS SOLUTION,LACTATED 1,000 ML IV PRN (15:48)
[2019-09-20] MEDS: THIAMINE HCL 100 MG, FOLIC ACID 1 MG in NORMAL SALINE 250 ML IV SCH (18:26)
[2019-09-20] MEDS: LABETALOL HCL INJ 20 MG/4 ML DISP.SYRIN IV PRN (23:14)
[2019-09-21] MEDS: LORAZEPAM INJ 2 MG/1 ML VIAL IV PRN ×2 (00:08→02:34)
[2019-09-21 04:12] LABS: HEMOGLOBIN 13.4 g/dL (13.5-17.0); MEAN CORPUSCULAR HEMOGLOBIN 31.9 pg (27.0-33.4); MEAN CORPUSCULAR HGB CONC 35.2 g/dL (32.0-36.0); MEAN CORPUSCULAR VOLUME 91 fl (80-97); PLATELET COUNT 115 10^3/uL (150-450); RED CELL DISTRIBUTION WIDTH 15.5 % (11.5-14.0); WHITE BLOOD COUNT 5.5 10^3/uL (4.0-10.5)
[2019-09-21 04:31] LABS: ANION GAP 8 (5-19); BLOOD UREA NITROGEN 4 mg/dL (7-20); CALCIUM 8.5 mg/dL (8.4-10.2); CARBON DIOXIDE 35 mmol/L (22-30); CHLORIDE 95 mmol/L (98-107); GLUCOSE 89 mg/dL (75-110)
[2019-09-21 04:35] LABS: POTASSIUM 2.8 mmol/L (3.6-5.0)
[2019-09-21] MEDS: POTASSI CL 20 MEQ/50 ML RIDER 20 MEQ/50 ML RTUPB IV SCH ×2 (05:15→06:29)
[2019-09-21] MEDS: HEPARIN SOD (PORCINE) 5,000 UNIT/ML 1 ML VIAL SUBCUT SCH (05:15)
[2019-09-21] MEDS ORDERED: LORAZEPAM 1 MG TABLET PO PRN (07:19)
--- NOTE | 2019-09-21 09:10 | PDOC CRITICAL CARE PROG REPORT ---
General Date:: 09/21/19 ICU Day:: 5 Hospital Day:: 5 Resuscitation Status: Full Code Events in the past 12 to 24 Hours:: Mental status has improved dramatically. Review of systems relevant to events:: Neuro, CV. Reason for ICU Addmission:: Possible need for high dose ativan and intubation - Medications: Medications reviewed and adjusted accordingly: Yes Vasopressors:: None Sedation:: None Physical Exam Vital Signs: Temp Pulse Resp BP Pulse Ox 98.5 F 134 H 19 149/101 H 90 L 09/21/19 08:00 09/21/19 08:00 09/21/19 08:00 09/21/19 08:00 09/21/19 08:00 Intake & Output 09/20/19 09/21/19 09/22/19 06:59 06:59 06:59 Intake Total 2131.4 1216.2 Output Total 1250 2825 Balance 881.4 -1608.8 Weight 112.1 kg 111.9 kg Weight/Height Weight 111.9 kg Height 5 ft 9 in General appearance: PRESENT: no acute distress, cooperative Head exam: PRESENT: atraumatic, normocephalic Eye exam: PRESENT: conjunctiva pink, EOMI, PERRLA. ABSENT: scleral icterus Ear exam: PRESENT: normal external ear exam Mouth exam: PRESENT: moist, tongue midline Respiratory exam: PRESENT: clear to auscultation katerina. ABSENT: rales, rhonchi, wheezes Cardiovascular exam: PRESENT: tachycardia Pulses: PRESENT: normal dorsalis pedis pul GI/Abdominal exam: PRESENT: normal bowel sounds, soft. ABSENT: distended, guarding, mass, organolmegaly, rebound, tenderness Rectal exam: PRESENT: deferred Extremities exam: PRESENT: full ROM. ABSENT: calf tenderness, clubbing, pedal edema Neurological exam: PRESENT: alert, awake, oriented to person, oriented to place, oriented to time, oriented to situation, CN II-XII grossly intact. ABSENT: motor sensory deficit Skin exam: PRESENT: dry, intact, warm. ABSENT: cyanosis, rash Laboratory/Radiographs Laboratory Results: 09/21/19 03:50 09/21/19 03:50 09/21/19 09/21/19 03:50 03:50 WBC 5.5 RBC 4.20 L Hgb 13.4 L Hct 38.0 MCV 91 MCH 31.9 MCHC 35.2 RDW 15.5 H Plt Count 115 L Sodium 138.4 Potassium 2.8 L* Chloride 95 L Carbon Dioxide 35 H Anion Gap 8 BUN 4 L Creatinine 0.70 Est GFR ( Amer) > 60 Glucose 89 Calcium 8.5 Impressions: Asymptomatic hypokalemia All labs, radiographs, diagnostic studies and EKGs were personally reviewed: Yes In addition, reports of radiographic and diagnostic studies were read: Yes Assessment and Plan - Diagnosis (1) Alcohol withdrawal Qualifiers: Complication of substance-induced condition: with unspecified complication Qualified Code(s): F10.239 - Alcohol dependence with withdrawal, unspecified Is this a current diagnosis for this admission?: Yes Plan: Withdrawal syndrome shows marked improvement. Wants to go home. Still occassionally confused, tachycardic. Still needs some mental clearing, ativan and HR monitoring for another day or 2. (2) Hypokalemia Is this a current diagnosis for this admission?: Yes Plan: Started on replacements BID for the next 2 days, then check level. (3) Hypomagnesemia Is this a current diagnosis for this admission?: Yes Plan: Resolved. Plan Summary: Transfer to tele floor. Ambulate. Hope to get home in a day or 2. Out patient referral for ETOH rehab. Critical Time Critical Time (minutes): 30 Level of Care: TELE Anticipated discharge: Home Within: within 72 hours -: 1. The care of a critical patient is a dynamic process. This note is a practice representative synopsis but static in nature. The timeframe for treatments given in order is not necessarily the actual time these treatments may have been done. 2. This patient requires critical care secondary to ongoing requirements for therapy not offered or safe outside the critical care environment. Transfer to a lower level of care will result in altered life or limb morbidity and mortality. 3. Multidisciplinary rounds completed. 4. ABCDE bundle addressed.
[2019-09-21] MEDS: ATENOLOL 50 MG TABLET PO SCH (09:33)
[2019-09-21] MEDS: MULTIVITAMIN TABLET PO SCH (09:34)
[2019-09-21] MEDS: HYDROCHLOROTHIAZIDE 25 MG TABLET PO SCH (09:50)
[2019-09-21] MEDS: AMLODIPINE BESYLATE 10 MG TABLET PO SCH (09:50)
[2019-09-21] MEDS ORDERED: THIAMINE HCL 100 MG TABLET PO SCH (10:00)
[2019-09-21] MEDS ORDERED: POTASSIUM CHLORIDE 10 MEQ TABLET.ER PO SCH (10:00)
[2019-09-21 11:02] VITALS: BP 120/92
[2019-09-21] MEDS ORDERED: NICOTINE 21 MG/24 HR PATCH.TD24 ONE (11:51)
--- NOTE | 2019-09-21 12:46 | PDOC DISCHARGE SUMMARY ---
Impression - Admit/DC Date/PCP Admission Date/Primary Care Provider: 09/17/19 15:49 ROXANNE GRAY MD Discharge Date: 09/21/19 - Discharge Diagnosis (1) Alcohol withdrawal Is this a current diagnosis for this admission?: Yes (2) Hypokalemia Is this a current diagnosis for this admission?: Yes (3) Hypomagnesemia Is this a current diagnosis for this admission?: Yes - Additional Information Resuscitation Status: Full Code Discharge Diet: Regular Discharge Activity: Activity As Tolerated Referrals: ROXANNE GRAY MD [Primary Care Provider] - Follow up as needed Home Medications: Amlodipine Besylate [Norvasc 10 mg Tablet] 10 mg PO DAILY 09/17/19 Atenolol 100 mg PO DAILY 09/17/19 History of Present Illiness History of Present Illness: DON REYNAGA is a 49 year old male with a history of alcoholism. He states a hx of PTSD and depression. If true this would give him a dual diagnosis and high risk for relapse which he has done. He was admitted to the ICU due to an anticipated need for 4 point restraints and possible intubation. He was never intubated and briefly in 4 points. He has recovered and is back to his baseline mental status. He wants to go to [facility] for further rehab. His return to normalcy confirmed by his father who will transport to [place]. Hospital Course Hospital Course: As mentioned, youngifly in restraints. He has not been taking his metoprolol therefore his HR has been around 100 with no symptoms. I anticipate this will come down in time. Alcohol WD likely played a role. His potassium is chronically low at about 3.0 He has had both PO an IV replacement today. He has not required ativan today. Physical Exam Vital Signs: Temp Pulse Resp BP Pulse Ox 98.5 F 134 H 19 120/92 H 90 L 09/21/19 08:00 09/21/19 08:00 09/21/19 08:00 09/21/19 09:24 09/21/19 08:00 Intake & Output 09/20/19 09/21/19 09/22/19 06:59 06:59 06:59 Intake Total 2131.4 1216.2 Output Total 1250 2825 Balance 881.4 -1608.8 Weight 112.1 kg 111.9 kg General appearance: PRESENT: no acute distress, well-developed, well-nourished Head exam: PRESENT: atraumatic, normocephalic Eye exam: PRESENT: conjunctiva pink, EOMI, PERRLA. ABSENT: scleral icterus Ear exam: PRESENT: normal external ear exam Mouth exam: PRESENT: moist, tongue midline Respiratory exam: PRESENT: clear to auscultation katerina. ABSENT: rales, rhonchi, wheezes Cardiovascular exam: PRESENT: RRR, tachycardia Pulses: PRESENT: normal dorsalis pedis pul Vascular exam: PRESENT: normal capillary refill GI/Abdominal exam: PRESENT: normal bowel sounds, soft. ABSENT: distended, guarding, mass, organolmegaly, rebound, tenderness Rectal exam: PRESENT: deferred Extremities exam: PRESENT: full ROM. ABSENT: calf tenderness, clubbing, pedal edema Musculoskeletal exam: PRESENT: normal inspection Neurological exam: PRESENT: alert, awake, oriented to person, oriented to place, oriented to time, oriented to situation, CN II-XII grossly intact. ABSENT: motor sensory deficit Skin exam: PRESENT: dry, intact, warm. ABSENT: cyanosis, rash Results Laboratory Results: WBC 5.5 10^3/uL (4.0-10.5) 09/21/19 03:50 RBC 4.20 10^6/uL (4.35-5.55) L 09/21/19 03:50 Hgb 13.4 g/dL (13.5-17.0) L 09/21/19 03:50 Hct 38.0 % (37.9-51.0) 09/21/19 03:50 MCV 91 fl (80-97) 09/21/19 03:50 MCH 31.9 pg (27.0-33.4) 09/21/19 03:50 MCHC 35.2 g/dL (32.0-36.0) 09/21/19 03:50 RDW 15.5 % (11.5-14.0) H 09/21/19 03:50 Plt Count 115 10^3/uL (150-450) L 09/21/19 03:50 Lymph % (Auto) Not Reportable 09/17/19 13:00 Z[place]ala % (Auto) Not Reportable 09/17/19 13:00 Eos % (Auto) Not Reportable 09/17/19 13:00 Baso % (Auto) Not Reportable 09/17/19 13:00 Absolute Neuts (auto) Not Reportable 09/17/19 13:00 Absolute Lymphs (auto) Not Reportable 09/17/19 13:00 Absolute Monos (auto) Not Reportable 09/17/19 13:00 Absolute Eos (auto) Not Reportable 09/17/19 13:00 Absolute Basos (auto) Not Reportable 09/17/19 13:00 Total Counted 100 09/17/19 13:00 Seg Neutrophils % Not Reportable 09/17/19 13:00 Seg Neuts % (Manual) 77 % (42-78) 09/17/19 13:00 Lymphocytes % (Manual) 18 % (13-45) 09/17/19 13:00 Monocytes % (Manual) 5 % (3-13) 09/17/19 13:00 Eosinophils % (Manual) 0 % (0-6) 09/17/19 13:00 Basophils % (Manual) 0 % (0-2) 09/17/19 13:00 Abs Neuts (Manual) 7.9 10^3/uL (1.7-8.2) 09/17/19 13:00 Abs Lymphs (Manual) 1.8 10^3/uL (0.5-4.7) 09/17/19 13:00 Abs Monocytes (Manual) 0.5 10^3/uL (0.1-1.4) 09/17/19 13:00 Absolute Eos (Manual) 0.0 10^3/uL (0.0-0.6) 09/17/19 13:00 Abs Basophils (Manual) 0.0 10^3/uL (0.0-0.2) 09/17/19 13:00 Platelet Comment DECREASED 09/17/19 13:00 Anisocytosis SLIGHT 09/17/19 13:00 PT 12.9 SEC (11.4-15.4) 09/17/19 13:00 INR 0.97 09/17/19 13:00 APTT 25.0 SEC (23.5-35.8) 09/17/19 13:00 Sodium 138.4 mmol/L (137-145) 09/21/19 03:50 Potassium 2.8 mmol/L (3.6-5.0) L* 09/21/19 03:50 Chloride 95 mmol/L (98-107) L 09/21/19 03:50 Carbon Dioxide 35 mmol/L (22-30) H 09/21/19 03:50 Anion Gap 8 (5-19) 09/21/19 03:50 BUN 4 mg/dL (7-20) L 09/21/19 03:50 Creatinine 0.70 mg/dL (0.52-1.25) 09/21/19 03:50 Est GFR ( Amer) > 60 (>60) 09/21/19 03:50 Est GFR (Non-Af Amer) Cancelled 09/18/19 06:07 Est GFR (MDRD) Non-Af > 60 (>60) 09/21/19 03:50 Glucose 89 mg/dL (75-110) 09/21/19 03:50 POC Glucose 115 mg/dL (70-110) H 09/18/19 05:38 Calcium 8.5 mg/dL (8.4-10.2) 09/21/19 03:50 Magnesium 1.9 mg/dL (1.6-2.3) 09/20/19 03:55 Total Bilirubin 1.9 mg/dL (0.2-1.3) H 09/17/19 13:00 Direct Bilirubin 1.1 mg/dL (0.0-0.4) H 09/17/19 13:00 Neonat Total Bilirubin Not Reportable 09/17/19 13:00 Neonat Direct Bilirubin Not Reportable 09/17/19 13:00 Neonat Indirect Bili Not Reportable 09/17/19 13:00 AST 375 U/L (17-59) H 09/17/19 13:00 ALT 180 U/L (<50) 09/17/19 13:00 Alkaline Phosphatase 145 U/L (38-126) H 09/17/19 13:00 Total Protein 8.9 g/dL (6.3-8.2) H 09/17/19 13:00 Albumin 5.2 g/dL (3.5-5.0) H 09/17/19 13:00 Lipase 361.1 U/L (23-300) H 09/17/19 13:00 EGFR Cancelled 09/18/19 06:07 Urine Color PHILOMENA 09/17/19 16:00 Urine Appearance SLIGHTLY-CLOUDY 09/17/19 16:00 Urine pH 6.0 (5.0-9.0) 09/17/19 16:00 Ur Specific [place] 1.022 09/17/19 16:00 Urine Protein >=500 mg/dL (NEGATIVE) H 09/17/19 16:00 Urine Glucose (UA) 50 mg/dL (NEGATIVE) H 09/17/19 16:00 Urine Ketones 20 mg/dL (NEGATIVE) H 09/17/19 16:00 Urine Blood MODERATE (NEGATIVE) H 09/17/19 16:00 Urine Nitrite NEGATIVE (NEGATIVE) 09/17/19 16:00 Urine Bilirubin NEGATIVE (NEGATIVE) 09/17/19 16:00 Urine Urobilinogen 4.0 mg/dL (<2.0) H 09/17/19 16:00 Ur Leukocyte Esterase NEGATIVE (NEGATIVE) 09/17/19 16:00 Urine WBC (Auto) 1 /HPF 09/17/19 16:00 Urine RBC (Auto) 0 /HPF 09/17/19 16:00 U Hyaline Cast (Auto) 14 /LPF 09/17/19 16:00 Urine Mucus (Auto) RARE /LPF 09/17/19 16:00 Urine Ascorbic Acid NEGATIVE (NEGATIVE) 09/17/19 16:00 Salicylates < 1.0 mg/dL (2.0-20.0) L 09/17/19 13:00 Urine Opiates Screen NEGATIVE 09/17/19 16:00 Urine Methadone Screen NEGATIVE 09/17/19 16:00 Acetaminophen < 10 ug/mL (10-30) L 09/17/19 13:00 Ur Barbiturates Screen NEGATIVE 09/17/19 16:00 Ur Phencyclidine Scrn NEGATIVE 09/17/19 16:00 Ur Amphetamines Screen NEGATIVE 09/17/19 16:00 U Benzodiazepines Scrn UNCONFIRMED POSITIVE 09/17/19 16:00 Urine Cocaine Screen NEGATIVE 09/17/19 16:00 U Marijuana (THC) Screen NEGATIVE 09/17/19 16:00 Serum Alcohol 32 mg/dL (NONE DETECTED) 09/17/19 13:00 EKG Comments: Mild sinus tachycardia Impressions: Alcohol WD related tachycardia needing his beta annabel back Plan Health Concerns: Relapse of drinking Plan of Treatment: To have his father take him directly to [facility]. 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
[2019-09-21] MEDS ORDERED: NICOTINE 21 MG/24 HR PATCH.TD24 TD SCH (13:00)
[2019-09-21] MEDS ORDERED: INFLUENZA QUAD (6MOS+) 2019-20 VAC 0.5 ML SYR IM ONE (14:00)
--- NOTE | 2019-09-21 14:18 | Progress Note ---
Provider Note Provider Note: Pt is ready for discharge. However [facility] has refused because he received ativan once at 5;30 AM. They were not clear as to why this disqualifies him both to me and his nurse Eric. He will go home with his father and walk in tomorrow himself to [place], where he has been before.
== END 2019-09-21 14:13 | disposition home or self-care (01) | DRG 897 ==
LOC: ER 10:35 → EH 15:49 → ICU 17:14
PROVIDERS: ADMIT Internal Medicine; ATTEND Internal Medicine
DX: F10.231 Alcohol dependence with withdrawal delirium (principal); Y90.1 Blood alcohol level of 20-39 mg/100 ml; E87.6 Hypokalemia; E83.42 Hypomagnesemia; F43.10 Post-traumatic stress disorder, unspecified; F32.9 Major depressive disorder, single episode, unspecified; I10 Essential (primary) hypertension; F17.210 Nicotine dependence, cigarettes, uncomplicated; E66.9 Obesity, unspecified; Z78.1 Physical restraint status; Z28.21 Immunization not carried out because of patient refusal; Z79.899 Other long term (current) drug therapy
CPT/HCPCS: 36415; 80048; 80053; 80307; 81001; 82962; 83690; 83735; 84132; 85025; 85027; 85610; 85730; 93005; 93010; 96361; 96365; 96368; 96375; 96376; 99232; 99238; 99291; J0360; J1644; J2060; J2405; J3411; J3475; J3480; J3490; J7030; J7050; J7120; S0119

== ENCOUNTER 2019-11-05 01:01 | Inpatient (IN) | payer OTHER ==
[2019-11-05 02:41] LABS: ABSOLUTE BASOPHILS # (AUTO) 0.1 10^3/uL (0.0-0.2); ABSOLUTE EOSINOPHILS # (AUTO) 0.1 10^3/uL (0.0-0.6); ABSOLUTE LYMPHOCYTES (AUTO) 1.5 10^3/uL (0.5-4.7); ABSOLUTE NEUT (AUTO) 5.1 10^3/uL (1.7-8.2); BASOPHILS % (AUTO) 0.8 % (0-2); EOSINOPHILS % (AUTO) 0.7 % (0-6); HEMATOCRIT 39.1 % (37.9-51.0); HEMOGLOBIN 13.6 g/dL (13.5-17.0); LYMPHOCYTES % (AUTO) 19.6 % (13-45); MEAN CORPUSCULAR HEMOGLOBIN 33.8 pg (27.0-33.4); MEAN CORPUSCULAR HGB CONC 34.8 g/dL (32.0-36.0); MEAN CORPUSCULAR VOLUME 97 fl (80-97); MONOCYTES % (AUTO) 12.5 % (3-13); PLATELET COUNT 127 10^3/uL (150-450); RED BLOOD COUNT 4.03 10^6/uL (4.35-5.55); RED CELL DISTRIBUTION WIDTH 15.3 % (11.5-14.0); SEGMENTED NEUTROPHILS % (AUTO) 66.4 % (42-78); TOTAL CELLS COUNTED % (AUTO) 100 %; WHITE BLOOD COUNT 7.7 10^3/uL (4.0-10.5)
[2019-11-05] MEDS ORDERED: LORAZEPAM INJ 2 MG/1 ML VIAL IV ONE ×3 (02:46→09:30)
--- NOTE | 2019-11-05 02:50 | ER Document Report ---
ED General - General Chief Complaint: Alcohol Withdrawl Stated Complaint: ETOH Time Seen by Provider: 11/05/19 02:35 Primary Care Provider: ROXANNE GRAY MD [Primary Care Provider] - Follow up as needed Notes: 49-year-old male presents the emergency department sent over from [facility] for alcohol withdrawal that is worsening. Patient was apparently having hallucinations at [facility]. Patient denies hallucinations. Patient states that his whole body hurts, states he is having difficulty walking because he has a tremor and feels like he has lost control of his muscles. Admits vomiting, denies abdominal pain. States that his last drink was sometime on Monday around noon, states that he has been drinking approximately 1/5 of bourbon daily for the past 10 years. Admits to history of withdrawal and states this actually feels similar. Denies any history of seizures with prior withdra wal. TRAVEL OUTSIDE OF THE [place] IN LAST 30 DAYS: No - Related Data Allergies/Adverse Reactions: lisinopril Adverse Reaction (Verified 09/17/19 17:53) Home Medications: clonidine Past Medical History - General Information source: Patient - Social History Smoking Status: Current Every Day Smoker Chew tobacco use (# tins/day): No Frequency of alcohol use: Heavy Drug Abuse: None Family History: Reviewed & Not Pertinent Patient has suicidal ideation: No Patient has homicidal ideation: No Psychiatric Medical History: Reports: Hx Depression Review of Systems - Review of Systems Constitutional: See HPI, Weakness EENT: No symptoms reported Cardiovascular: No symptoms reported Respiratory: No symptoms reported Gastrointestinal: See HPI, Vomiting Musculoskeletal: See HPI, Muscle pain Neurological/Psychological: See HPI, Hallucinations, Tremor -: Yes All other systems reviewed and negative Physical Exam - Vital signs Vitals: Temp Pulse Resp BP Pulse Ox 97.9 F 101 H 28 H 100/57 L 97 11/05/19 01:06 11/05/19 01:06 11/05/19 01:06 11/05/19 01:06 11/05/19 01:06 Interpretation: Tachycardic, Tachypneic - Notes Notes: GENERAL: Sleeping, tremoring even in his sleep, wakes up easily, appears mildly uncomfortable. HEAD: Normocephalic, atraumatic EYES: Pupils equal, round and reactive to light, extraocular movements intact. ENT: Oral mucosa moist, tongue midline. NECK: Full range of motion, supple, trachea midline. LUNGS: Clear to auscultation bilaterally, no wheezes, rales or rhonchi, no respiratory distress. HEART: Regular rate and rhythm, no murmurs, gallops, rubs. ABDOMEN: Soft, nontender, nondistended, bowel sounds present in all 4 quadrants. EXTREMITIES: Moves all 4 extremities spontaneously, no edema, radial and dorsalis pedis pulses 2/4 bilaterally. No cyanosis. NEUROLOGICAL: Alert and oriented x3, normal speech, no facial droop, tremor persists while asleep, worsens when trying to sit up, no asterixis, biceps and patellar DTRs 2+ bilaterally. PSYCH: Pleasant. SKIN: Warm, Dry, normal turgor. Course - Re-evaluation Re-evalutation: 11/05/19 02:50 11/05/19 04:41 After receiving Ativan 2mg IV he has started picking at the air and trying to catch bugs that are not there. 11/05/19 04:47 Platelets are low at 127 otherwise CBC is normal, CMP shows no low sodium, newly low potassium which is being repleted, BUN is normal, creatinine is increased, he is given normal saline through the IV, calcium is normal but ionized calcium is low, magnesium is also low, both of these are being repleted through the IV, ammonia is elevated at 36.5 as are the AST, ALT and alkaline phosphatase. Patient is not sleepy secondary to elevated ammonia. Troponin is indeterminate but detectable at 0.039, lipase mildly elevated at 612.5, urinalysis does not show any signs of infection. Alcohol level is undetectable. EKG has prolonged QT likely related to the calcium and the magnesium being low. 11/05/19 04:47 Discussed case with Obey Washington the PA in the ICU as well as Dr. Manriquez the hospitalist, both feel the patient is appropriate for the IMCU. Patient will be admitted. - Vital Signs Vital signs: Temp Pulse Resp BP Pulse Ox 98.7 F 97 14 134/93 H 94 11/05/19 03:21 11/05/19 03:21 11/05/19 04:01 11/05/19 04:01 11/05/19 04:01 - Laboratory Result Diagrams: 11/05/19 02:30 11/05/19 02:30 Laboratory results interpreted by me: 02/18/20 02/18/20 02/18/20 02:30 02:30 02:30 RBC 4.03 L MCH 33.8 H RDW 15.3 H Plt Count 127 L Sodium 126.8 L Potassium 3.3 L Chloride 75 L Anion Gap 23 H Creatinine 1.98 H Est GFR ( Amer) 44 L Est GFR (MDRD) Non-Af 36 L Ionized Calcium Rhonda Magnesium 0.7 L* Total Bilirubin 5.6 H Direct Bilirubin 4.1 H AST 278 H ALT 112 H Alkaline Phosphatase 142 H Ammonia Creatine Kinase 429 H Lipase 612.5 H Urine Protein Urine Ketones Urine Blood Urine Urobilinogen Salicylates < 1.0 L Acetaminophen < 10 L 11/05/19 11/05/19 11/05/19 03:00 03:00 04:15 RBC MCH RDW Plt Count Sodium Potassium Chloride Anion Gap Creatinine Est GFR ( Amer) Est GFR (MDRD) Non-Af Ionized Calcium Rhonda 0.91 L Magnesium Total Bilirubin Direct Bilirubin AST ALT Alkaline Phosphatase Ammonia 36.5 H Creatine Kinase Lipase Urine Protein 100 H Urine Ketones TRACE H Urine Blood MODERATE H Urine Urobilinogen 4.0 H Salicylates Acetaminophen - EKG Interpretation by Me Additional EKG results interpreted by me: 11/05/19 04:47 EKG shows sinus rhythm at a rate of 91, prolonged QT interval, no ST segment elevations or depressions, rapid R wave progression, somewhat peaked T waves, T waves inverted in lead III per my interpretation. Critical Care Note - Critical Care Note Total time excluding time spent on procedures (mins): 32 Discharge - Discharge Clinical Impression: Hypokalemia, Hypomagnesemia, Hypocalcemia, Thrombocytopenia Alcohol withdrawal Qualifiers: Complication of substance-induced condition: with delirium Qualified Code(s): F10.231 - Alcohol dependence with withdrawal delirium Alcoholic hepatitis Qualifiers: Ascites presence: without ascites Qualified Code(s): K70.10 - Alcoholic hepatitis without ascites Acute renal failure Qualifiers: Acute renal failure type: unspecified Qualified Code(s): N17.9 - Acute kidney failure, unspecified Condition: Fair Disposition: ADMITTED INPATIENT Admitting Provider: Declan (Hospitalist) Unit Admitted: IMCU Referrals: ROXANNE GRAY MD [Primary Care Provider] - Follow up as needed
[2019-11-05 03:04] LABS: ALBUMIN 4.3 g/dL (3.5-5.0); ALKALINE PHOSPHATASE 142 U/L (38-126); ASPARTATE AMINO TRANSFERASE 278 U/L (17-59); BILIRUBIN,DIRECT 4.1 mg/dL (0.0-0.4); BILIRUBIN,TOTAL 5.6 mg/dL (0.2-1.3); BLOOD UREA NITROGEN 7 mg/dL (7-20); CALCIUM 8.6 mg/dL (8.4-10.2); GLUCOSE 109 mg/dL (75-110); POTASSIUM 3.3 mmol/L (3.6-5.0); TOTAL PROTEIN 7.6 g/dL (6.3-8.2)
[2019-11-05 03:09] LABS: CARBON DIOXIDE 29 mmol/L (22-30); CHLORIDE 75 mmol/L (98-107)
[2019-11-05 03:11] LABS: ACETAMINOPHEN < 10 ug/mL (10-30); ALCOHOL < 10 mg/dL (NONE DETECTED); ANION GAP 23 (5-19); SALICYLATE < 1.0 mg/dL (2.0-20.0)
[2019-11-05] MEDS: NORMAL SALINE 1000 ML 1,000 ML IV PRN ×5 (03:15→18:38)
[2019-11-05 03:37] LABS: CREATINE KINASE MB 3.32 ng/mL (<4.55)
[2019-11-05 03:42] LABS: TROPONIN I 0.039 ng/mL
[2019-11-05] MEDS ORDERED: MAGNESIUM SULFATE/D5W 1 GM/100 ML RTUPB IV ONE (03:54)
[2019-11-05] MEDS ORDERED: CALCIUM GLUC IN NACL, ISO-OSM 1 GM/50 ML RTUPB IV ONE (03:54)
[2019-11-05] MEDS: POTASSI CL 20 MEQ/50 ML RIDER 20 MEQ/50 ML RTUPB IV SCH ×4 (04:09→09:44)
[2019-11-05 04:31] LABS: APPEARANCE,URINE CLOUDY; BILIRUBIN,URINE NEGATIVE (NEGATIVE); COLOR,URINE AMBER; GLUCOSE, URINE NEGATIVE (NEGATIVE); KETONES,URINE TRACE mg/dL (NEGATIVE); LEUKOCYTE ESTERASE,URINE NEGATIVE (NEGATIVE); NITRITE,URINE NEGATIVE (NEGATIVE); PROTEIN,URINE 100 mg/dL (NEGATIVE); URINE SPECIFIC GRAVITY 1.012
[2019-11-05 04:46] LABS: URINE BARBITURATES SCREEN NEGATIVE; URINE COCAINE SCREEN NEGATIVE; URINE MARIJUANA (THC) SCREEN NEGATIVE; URINE METHADONE SCREEN NEGATIVE; URINE PHENCYCLIDINE SCREEN NEGATIVE
[2019-11-05] MEDS ORDERED: DIAZEPAM INJ 10 MG/2 ML DISP.SYRIN IV PRN (04:46)
[2019-11-05] MEDS ORDERED: LORAZEPAM INJ 2 MG/1 ML VIAL IV PRN ×2 (04:46→11:18)
[2019-11-05] MEDS ORDERED: IPRATROPIUM/ALBUTEROL 0.5-2.5 MG/3 ML AMPUL NEB PRN (04:47)
[2019-11-05] MEDS ORDERED: ACETAMINOPHEN 650 MG SUPP.RECT PR PRN (04:47)
[2019-11-05] MEDS ORDERED: MAG HYDROX/AL HYDROX/SIMETH SUSP 30 ML UDCUP PO PRN (04:47)
[2019-11-05 04:50] LABS: URINE AMPHETAMINES SCREEN NEGATIVE
[2019-11-05 04:55] LABS: URINE BENZODIAZEPINES SCREEN UNCONFIRMED POSITIVE
[2019-11-05 05:08] LABS: INTERNATIONAL RATION (INR) 1.04; PROTHROMBIN TIME 13.7 SEC (11.4-15.4)
[2019-11-05] MEDS: HEPARIN SOD (PORCINE) 5,000 UNIT/ML 1 ML VIAL SUBCUT SCH ×3 (05:21→21:19)
[2019-11-05] MEDS: MAGNESIUM SULFATE/D5W 1 GM/100 ML RTUPB IV SCH ×2 (05:23→08:51)
--- NOTE | 2019-11-05 05:56 | PDOC H&P ---
History of Present Illness Admission Date/PCP: 11/05/19 05:10 ROXANNE GRAY MD Patient complains of: Alcohol withdrawal History of Present Illness: DON REYNAGA is a 49 year old male with a past medical history of polysubstance abuse, alcohol dependence and alcohol withdrawal DTs. He presents from [facility] for alcohol withdrawal manifesting and hypertension, tachycardia, tremor and hallucinations. In the emergency department he is found to have delirium labs reveal hyponatremia, hypokalemia, hypocalcemia hypomagnesemia, prolonged QT interval and acute renal failure. He receives IV calcium, Ativan and referred to the hospitalist for admission. Patient is a poor historian unable provide additional history. Patient last admitted for alcohol withdrawal DTs September 17, 2019. Past Medical History Cardiac Medical History: Reports: Hypertension Pulmonary Medical History: Reports: Chronic Obstructive Pulmonary Disease (COPD) EENT Medical History: Reports: None Neurological Medical History: Reports: Seizures Endocrine Medical History: Reports: None Renal/ Medical History: Reports: None Malignancy Medical History: Reports: None GI Medical History: Reports: None Musculoskeltal Medical History: Reports: None Skin Medical History: Reports: None Psychiatric Medical History: Reports: Alcohol Dependency, Depression, Tobacco Dependency Traumatic Medical History: Reports: None Hematology: Reports: None Infectious Medical History: Reports: None Social History Information Source: [facility], [facility] Records Smoking Status: Current Every Day Smoker Electronic Cigarette use?: No Frequency of Alcohol Use: Heavy Amount of Alcoholic Beverages Per Day: 1/5/day Hx Recreational Drug Use: Yes Drugs: Cocaine, Marijuana, Hallucinogen, Other Hx Prescription Drug Abuse: No - Advance Directive Resuscitation Status: Full Code Family History Family History: Reviewed & Not Pertinent Parental Family History Reviewed: No - Unobtainable Children Family History Reviewed: No - Unobtainable Sibling(s) Family History Reviewed.: No - Unobtainable Medication/Allergy Home Medications: Amlodipine Besylate [Norvasc 10 mg Tablet] 10 mg PO DAILY 09/17/19 Atenolol 100 mg PO DAILY 09/17/19 Allergies/Adverse Reactions: lisinopril Adverse Reaction (Verified 09/17/19 17:53) Review of Systems ROS unobtainable: Due to mental status Physical Exam Vital Signs: Temp Pulse Resp BP Pulse Ox 98.7 F 97 14 134/93 H 94 11/05/19 03:21 11/05/19 03:21 11/05/19 04:01 11/05/19 04:01 11/05/19 04:01 Intake & Output 11/03/19 11/04/19 11/05/19 11:59 11:59 11:59 Intake Total 1966 Balance 1966 Weight 104.326 kg General appearance: PRESENT: disheveled, severe distress, well-developed Head exam: PRESENT: atraumatic, normocephalic Eye exam: PRESENT: conjunctiva pink, EOMI, PERRLA. ABSENT: scleral icterus Ear exam: PRESENT: normal external ear exam Mouth exam: PRESENT: moist, tongue midline Neck exam: ABSENT: carotid bruit, JVD, lymphadenopathy, thyromegaly Respiratory exam: PRESENT: prolonged expiratory phas, tachypnea. ABSENT: rales, rhonchi, wheezes Cardiovascular exam: PRESENT: tachycardia. ABSENT: diastolic murmur, rubs, systolic murmur Pulses: PRESENT: normal dorsalis pedis pul Vascular exam: PRESENT: normal capillary refill GI/Abdominal exam: PRESENT: normal bowel sounds, soft. ABSENT: distended, guarding, mass, organolmegaly, rebound, tenderness Rectal exam: PRESENT: deferred Extremities exam: PRESENT: full ROM. ABSENT: calf tenderness, clubbing, pedal edema Neurological exam: PRESENT: altered, CN II-XII grossly intact Psychiatric exam: PRESENT: agitated, anxious, unusual affect Skin exam: PRESENT: dry, intact, warm. ABSENT: cyanosis, rash Results Laboratory Results: 11/05/19 02:30 11/05/19 02:30 11/05/19 11/05/19 11/05/19 02:30 02:30 02:30 WBC 7.7 RBC 4.03 L Hgb 13.6 Hct 39.1 MCV 97 MCH 33.8 H MCHC 34.8 RDW 15.3 H Plt Count 127 L Seg Neutrophils % 66.4 Sodium 126.8 L Potassium 3.3 L Chloride 75 L Carbon Dioxide 29 Anion Gap 23 H BUN 7 Creatinine 1.98 H Est GFR ( Amer) 44 L Glucose 109 Calcium 8.6 Ionized Calcium Rhonda Phosphorus Magnesium 0.7 L* Total Bilirubin 5.6 H AST 278 H Alkaline Phosphatase 142 H Ammonia Total Protein 7.6 Albumin 4.3 Lipase 612.5 H Urine Color Urine Appearance Urine pH Ur Specific [place] Urine Protein Urine Glucose (UA) Urine Ketones Urine Blood Urine Nitrite Ur Leukocyte Esterase Urine WBC (Auto) Urine RBC (Auto) 11/05/19 11/05/19 11/05/19 02:30 03:00 03:00 WBC RBC Hgb Hct MCV MCH MCHC RDW Plt Count Seg Neutrophils % Sodium Potassium Chloride Carbon Dioxide Anion Gap BUN Creatinine Est GFR ( Amer) Glucose Calcium Ionized Calcium Rhonda 0.91 L Phosphorus 1.0 L Magnesium Total Bilirubin AST Alkaline Phosphatase Ammonia 36.5 H Total Protein Albumin Lipase Urine Color Urine Appearance Urine pH Ur Specific [place] Urine Protein Urine Glucose (UA) Urine Ketones Urine Blood Urine Nitrite Ur Leukocyte Esterase Urine WBC (Auto) Urine RBC (Auto) 11/05/19 04:15 WBC RBC Hgb Hct MCV MCH MCHC RDW Plt Count Seg Neutrophils % Sodium Potassium Chloride Carbon Dioxide Anion Gap BUN Creatinine Est GFR ( Amer) Glucose Calcium Ionized Calcium Rhonda Phosphorus Magnesium Total Bilirubin AST Alkaline Phosphatase Ammonia Total Protein Albumin Lipase Urine Color PHILOMENA Urine Appearance CLOUDY Urine pH 6.0 Ur Specific [place] 1.012 Urine Protein 100 H Urine Glucose (UA) NEGATIVE Urine Ketones TRACE H Urine Blood MODERATE H Urine Nitrite NEGATIVE Ur Leukocyte Esterase NEGATIVE Urine WBC (Auto) 5 Urine RBC (Auto) 1 11/05/19 11/05/19 02:30 02:30 Creatine Kinase 429 H CK-MB (CK-2) 3.32 Troponin I 0.039 Assessment and Plan - Diagnosis (1) Hyponatremia Is this a current diagnosis for this admission?: Yes Plan: Secondary to malnutrition, normal saline challenge, follow-up chemistry (2) Acute renal failure Qualifiers: Acute renal failure type: unspecified Qualified Code(s): N17.9 - Acute kidney failure, unspecified Is this a current diagnosis for this admission?: Yes Plan: Unclear cause, follow-up urinalysis and chemistry IV fluid challenge, avoid nephrotoxic meds and doses (3) Alcohol withdrawal Qualifiers: Complication of substance-induced condition: with delirium Qualified Code(s): F10.231 - Alcohol dependence with withdrawal delirium Is this a current diagnosis for this admission?: Yes Plan: Seizure precautions, thiamine, folate, Valium and Ativan PRN (4) Alcoholic hepatitis Qualifiers: Ascites presence: without ascites Qualified Code(s): K70.10 - Alcoholic hepatitis without ascites Is this a current diagnosis for this admission?: Yes Plan: Follow-up LFTs consider steroids (5) Hypocalcemia Is this a current diagnosis for this admission?: Yes Plan: Secondary to alcoholism, IV replacement, reevaluation of chemistry (6) Hypokalemia Is this a current diagnosis for this admission?: Yes Plan: Secondary to alcoholism, repletion and follow-up chemistry (7) Hypomagnesemia Is this a current diagnosis for this admission?: Yes Plan: Secondary to alcoholism, repletion and follow-up chemistry - Time Time Spent with patient: 25-34 minutes - Inpatient Certification Medical Necessity: Need Close Monitoring Due to Risk of Patient Decompensation
[2019-11-05] MEDS ORDERED: INFLUENZA QUAD (6MOS+) 2019-20 VAC 0.5 ML SYR IM ONE (07:23)
[2019-11-05] MEDS: THIAMINE HCL 100 MG, FOLIC ACID 1 MG in NORMAL SALINE 250 ML IV SCH (08:56)
[2019-11-05] MEDS: FAMOTIDINE INJ/PF 20 MG/2 ML SDV IV SCH ×2 (09:03→22:00)
[2019-11-05] MEDS: DIAZEPAM 5 MG TABLET PO SCH ×3 (09:04→22:40)
[2019-11-05] MEDS ORDERED: MAGNESIUM SULFATE/D5W 1 GM/100 ML RTUPB IV SCH (09:30)
[2019-11-05] MEDS: IPRATROPIUM/ALBUTEROL 0.5-2.5 MG/3 ML AMPUL NEB SCH ×2 (09:34→20:22)
[2019-11-05] MEDS ORDERED: LORAZEPAM INJ 2 MG/1 ML VIAL ONE (09:38)
[2019-11-05] MEDS: MAGNESIUM SULFATE 1 GM/D5W 100 ML IV SCH ×2 (09:58→11:02)
--- NOTE | 2019-11-05 11:22 | Progress Note ---
Provider Note Provider Note: Seen and evaluated patient. Agree with prior recommendations from provider. I have made some adjustments and place patient on every 2 hours CIWA protocol. Titrate lorazepam administration per protocol. I have placed specific orders for Ativan to guide administration. Standing Valium 10 mg every 8 hours. Will m onitor patient closely as patient is having pretty significant alcohol withdrawal at this time with last CIWA of 18. If he gets too far gone with persistently high CIWAs despite Ativan administration and standing Valium, will consider sending to ICU for Precedex drip.
--- NOTE | 2019-11-05 11:29 | EKG REPORT ---
SEVERITY:- ABNORMAL ECG - SINUS RHYTHM PROLONGED QT INTERVAL, CONSIDER HYPOCALCEMIA : Confirmed by: Jude Gimenez 05-Nov-2019 11:29:08
[2019-11-05] MEDS: LORAZEPAM INJ 2 MG/1 ML VIAL IV PRN ×4 (11:34→21:30)
[2019-11-05] MEDS ORDERED: ATENOLOL 50 MG TABLET PO SCH (12:00)
[2019-11-05] MEDS ORDERED: AMLODIPINE BESYLATE 10 MG TABLET PO SCH (12:00)
[2019-11-05] MEDS ORDERED: POTASSIUM PHOS,M-BASIC-D-BASIC 30 MMOL in NORMAL SALINE 500 ML IV ONE (13:00)
[2019-11-05 16:27] LABS: ANION GAP 13 (5-19); BLOOD UREA NITROGEN 6 mg/dL (7-20); CALCIUM 7.7 mg/dL (8.4-10.2); CARBON DIOXIDE 28 mmol/L (22-30); CHLORIDE 88 mmol/L (98-107); GLUCOSE 78 mg/dL (75-110)
[2019-11-05 16:34] LABS: POTASSIUM 2.9 mmol/L (3.6-5.0)
[2019-11-05] MEDS ORDERED: POTASSIUM CHLORIDE 10 MEQ TABLET.ER PO ONE (17:00)
[2019-11-05] MEDS: POTASSIUM CHLORIDE 20 MEQ/50 ML RTU IV SCH ×3 (17:15→21:28)
[2019-11-05] MEDS ORDERED: PROPRANOLOL HCL 10 MG TABLET PO SCH (22:00)
[2019-11-05] MEDS: SERTRALINE HCL 50 MG TABLET PO SCH (22:01)
[2019-11-05] MEDS ORDERED: POTASSIUM CHLORIDE 20 MEQ/50 ML RTU IV ONE (23:30)
[2019-11-05] MEDS ORDERED: CHLORPROMAZINE HCL INJ 25 MG/1 ML AMPULE IV PRN (23:49)
--- NOTE | 2019-11-06 00:11 | Progress Note ---
Provider Note Provider Note: Critical care note: 11/05/2019 Critical care start time: 23:44 Critical care issue: Agitation, unable to administer oral medications Patient was seen at the request of his nurse who called to report that he was significantly agitated and they were unable to give him his oral medications at this time. Patient has been allowing IV medications to be administered and the nursing staff is requested that his medications be converted to IV if possible. I went in and observed the patient in his room noting significant agitation and anxiety throughout my evaluation. Patient was noted to have significant tremor of his extremities involving both proximal and distal muscle groups. He did not appear to be actively hallucinating but was noted to be easily distracted and to have a poor attention span throughout my interview and evaluation. Chest is clear to auscultation throughout all partida with ease of respiration noted though the patient is on O2 via nasal cannula at the time of my evaluation. Heart shows regular rate and rhythm without murmurs clicks gallops or rubs. I discussed a treatment program utilizing IV medications for control of his anxiety, agitation and tremors. Patient was attentive but I am not certain that he understood fully the entire discussion. Patient will be treated with IV Valium 5 mg every 4 hours and a PRN dose of IV Valium 10 mg every 1 hour as needed for severe anxiety or tremors. Chlorpromazine 25 mg IV every 8 hours will be administered as needed for agitation or hallucinations. Patient's metabolic profile will be rechecked after he finishes receiving his current K rider. Patient's oral medications will be discontinued until such time as he can resume taking oral medications. In the interim he will be treated with metoprolol 5 mg IV every 4 hours as needed for a systolic blood pressure greater than 160 and/or a diastolic blood pressure greater than 100 and he may also be treated with the same medication for a heart rate greater than 110 on a sustained basis with a minimum systolic blood pressure of 110. Critical care end time: 00:10 11/06/2019 Total critical care time: 17 minutes
[2019-11-06] MEDS: DIAZEPAM INJ 10 MG/2 ML DISP.SYRIN IV PRN ×10 (00:29→23:27)
[2019-11-06] MEDS: DEXTROSE 5%-LACTATED RINGERS 1,000 ML IV PRN ×3 (02:14→14:17)
[2019-11-06 02:27] LABS: ANION GAP 10 (5-19); BLOOD UREA NITROGEN 5 mg/dL (7-20); CALCIUM 7.6 mg/dL (8.4-10.2); CARBON DIOXIDE 27 mmol/L (22-30); CHLORIDE 99 mmol/L (98-107); GLUCOSE 84 mg/dL (75-110); POTASSIUM 3.6 mmol/L (3.6-5.0)
[2019-11-06] MEDS ORDERED: CHLORPROMAZINE HCL INJ 25 MG/1 ML AMPULE ONE ×2 (04:58→23:31)
[2019-11-06] MEDS: HEPARIN SOD (PORCINE) 5,000 UNIT/ML 1 ML VIAL SUBCUT SCH ×3 (05:17→22:07)
[2019-11-06 08:02] LABS: HEMATOCRIT 32.9 % (37.9-51.0); MEAN CORPUSCULAR HEMOGLOBIN 34.5 pg (27.0-33.4); MEAN CORPUSCULAR HGB CONC 34.7 g/dL (32.0-36.0); MEAN CORPUSCULAR VOLUME 99 fl (80-97); PLATELET COUNT 103 10^3/uL (150-450); RED BLOOD COUNT 3.31 10^6/uL (4.35-5.55); RED CELL DISTRIBUTION WIDTH 15.6 % (11.5-14.0); WHITE BLOOD COUNT 5.5 10^3/uL (4.0-10.5)
[2019-11-06] MEDS: THIAMINE HCL 100 MG, FOLIC ACID 1 MG in NORMAL SALINE 250 ML IV SCH (08:28)
[2019-11-06 08:29] LABS: ALBUMIN 3.3 g/dL (3.5-5.0); ALKALINE PHOSPHATASE 130 U/L (38-126); ANION GAP 8 (5-19); ASPARTATE AMINO TRANSFERASE 274 U/L (17-59); BILIRUBIN,DIRECT 4.5 mg/dL (0.0-0.4); BILIRUBIN,TOTAL 5.3 mg/dL (0.2-1.3); BLOOD UREA NITROGEN 5 mg/dL (7-20); CALCIUM 7.9 mg/dL (8.4-10.2); CARBON DIOXIDE 32 mmol/L (22-30); CHLORIDE 99 mmol/L (98-107); GLUCOSE 100 mg/dL (75-110); POTASSIUM 3.1 mmol/L (3.6-5.0); TOTAL PROTEIN 6.4 g/dL (6.3-8.2)
[2019-11-06 08:33] LABS: HEMOGLOBIN 11.4 g/dL (13.5-17.0)
[2019-11-06 08:39] LABS: ABSOLUTE LYMPHOCYTES# (MANUAL) 1.2 10^3/uL (0.5-4.7); ABSOLUTE MONOCYTES # (MANUAL) 0.3 10^3/uL (0.1-1.4); ANISOCYTOSIS SLIGHT; BASOPHILS % (MANUAL) 0 % (0-2); EOSINOPHILS % (MANUAL) 1 % (0-6); LYMPHOCYTES % (MANUAL) 21 % (13-45); MONOCYTES % (MANUAL) 6 % (3-13); NUCLEATED RED BLOOD CELLS 2 /100 WBC (0); POLYCHROMASIA SLIGHT; SEGMENTED NEUTROPHILS % (MAN) 72 % (42-78); TOTAL CELLS COUNTED 100
[2019-11-06 08:40] LABS: PLATELET COMMENT DECREASED; TEAR DROP CELLS SLIGHT
[2019-11-06] MEDS: FAMOTIDINE INJ/PF 20 MG/2 ML SDV IV SCH ×2 (09:17→22:07)
--- NOTE | 2019-11-06 10:19 | PDOC PROGRESS REPORT ---
Subjective Progress Note for:: 11/06/19 Subjective:: Patient is sedated. He is currently sleeping under sedation. Reason For Visit: ALCOHOL WITHDRAWAL DELERIUM Physical Exam Vital Signs: Temp Pulse Resp BP Pulse Ox 98.9 F 83 22 H 107/61 95 11/06/19 03:20 11/06/19 06:46 11/06/19 03:20 11/06/19 03:20 11/06/19 03:20 Intake & Output 11/05/19 11/06/19 11/07/19 06:59 06:59 06:59 Intake Total 1965 3744.2 1251.2 Output Total 1000 Balance 1965 2744.2 1251.2 Weight 117.9 kg 119.6 kg General appearance: PRESENT: no acute distress, obese Head exam: PRESENT: atraumatic Neck exam: ABSENT: carotid bruit, JVD Respiratory exam: PRESENT: clear to auscultation katerina, unlabored. ABSENT: acces mauro muscle use, tachypnea Cardiovascular exam: PRESENT: RRR, +S1, +S2 GI/Abdominal exam: PRESENT: soft. ABSENT: tenderness Rectal exam: PRESENT: deferred Extremities exam: ABSENT: calf tenderness Neurological exam: PRESENT: other - Currently sedated, unable to fully evaluate Psychiatric exam: PRESENT: other - Unable to fully evaluate Results Laboratory Results: 11/06/19 07:41 11/06/19 07:41 11/05/19 11/05/19 11/06/19 10:59 15:10 01:57 WBC RBC Hgb Hct MCV MCH MCHC RDW Plt Count Seg Neutrophils % Sodium 129.4 L 136.1 L Potassium 2.9 L* 3.6 Chloride 88 L 99 Carbon Dioxide 28 27 Anion Gap 13 10 BUN 6 L 5 L Creatinine 1.43 H 1.13 Est GFR ( Amer) > 60 > 60 Glucose 78 84 Calcium 7.7 L 7.6 L Phosphorus Magnesium 2.0 D Total Bilirubin AST Alkaline Phosphatase Total Protein Albumin 11/06/19 11/06/19 07:41 07:41 WBC 5.5 RBC 3.31 L Hgb 11.4 L D Hct 32.9 L MCV 99 H MCH 34.5 H MCHC 34.7 RDW 15.6 H Plt Count 103 L Seg Neutrophils % Not Reportable Sodium 139.4 Potassium 3.1 L Chloride 99 Carbon Dioxide 32 H Anion Gap 8 BUN 5 L Creatinine 1.04 Est GFR ( Amer) > 60 Glucose 100 Calcium 7.9 L Phosphorus 1.0 L Magnesium 2.2 Total Bilirubin 5.3 H AST 274 H Alkaline Phosphatase 130 H Total Protein 6.4 Albumin 3.3 L 11/05/19 11/05/19 02:30 02:30 Creatine Kinase 429 H CK-MB (CK-2) 3.32 Troponin I 0.039 Assessment and Plan - Diagnosis (1) Alcohol withdrawal Qualifiers: Complication of substance-induced condition: with delirium Qualified Code(s): F10.231 - Alcohol dependence with withdrawal delirium Is this a current diagnosis for this admission?: Yes Plan: Continue with seizure precautions, thiamine, folate, Valium and Ativan PRN (2) Alcoholic hepatitis Qualifiers: Ascites presence: without ascites Qualified Code(s): K70.10 - Alcoholic hepatitis without ascites Is this a current diagnosis for this admission?: Yes Plan: Follow-up LFTs (3) Hypokalemia Is this a current diagnosis for this admission?: Yes Plan: We will continue to replace (4) Hypomagnesemia Is this a current diagnosis for this admission?: Yes Plan: Corrected (5) Hypophosphatemia Is this a current diagnosis for this admission?: Yes Plan: Likely nutritional and secondary to his alcohol abuse - Time Time Spent with patient: 15-24 minutes - Inpatient Certification Based on my medical assessment, after consideration of the patient's comorbidities, presenting symptoms, or acuity I expect that the services needed warrant INPATIENT care.: Yes Medical Necessity: Need Close Monitoring Due to Risk of Patient Decompensation
[2019-11-06] MEDS ORDERED: POTASSIUM PHOS,M-BASIC-D-BASIC 60 MMOL in NORMAL SALINE 1000 ML 1,000 ML IV ONE (12:00)
[2019-11-06] MEDS: SERTRALINE HCL 50 MG TABLET PO SCH (22:07)
[2019-11-07] MEDS: DIAZEPAM INJ 10 MG/2 ML DISP.SYRIN IV PRN ×5 (00:28→21:18)
--- NOTE | 2019-11-07 02:38 | Progress Note ---
Provider Note Provider Note: Critical care note: 11/06/2019 Critical care start time: 21:36 Critical care issue: Agitation and combative behavior I was called by the patient's nurse to evaluate the patient due to his extreme agitation and combative behavior. Patient has been very threatening to the nursing staff and has pulled his own Daniels catheter out with the balloon inflated and intact. I observed the patient over an extended course of time and found that he was extremely irritable and responded inappropriately to virtually any physical contact or other stimulus. The patient's Haldol was increased to 5 mg IV every 2 hours on an as-needed basis for extreme agitation and restraints were approved for use. Critical care end time: 23:03 Total critical care time: 26 minutes
[2019-11-07] MEDS: DEXTROSE 5%-LACTATED RINGERS 1,000 ML IV PRN (02:47)
[2019-11-07] MEDS ORDERED: CHLORPROMAZINE HCL INJ 25 MG/1 ML AMPULE ONE (05:15)
[2019-11-07] MEDS: CHLORPROMAZINE HCL INJ 25 MG/1 ML AMPULE IV PRN (05:20)
[2019-11-07] MEDS: HEPARIN SOD (PORCINE) 5,000 UNIT/ML 1 ML VIAL SUBCUT SCH ×3 (06:17→21:09)
[2019-11-07 07:04] LABS: ALBUMIN 3.1 g/dL (3.5-5.0); ALKALINE PHOSPHATASE 136 U/L (38-126); ANION GAP 11 (5-19); ASPARTATE AMINO TRANSFERASE 270 U/L (17-59); BILIRUBIN,DIRECT 4.6 mg/dL (0.0-0.4); BILIRUBIN,TOTAL 5.4 mg/dL (0.2-1.3); BLOOD UREA NITROGEN 2 mg/dL (7-20); CALCIUM 7.3 mg/dL (8.4-10.2); CARBON DIOXIDE 28 mmol/L (22-30); CHLORIDE 101 mmol/L (98-107); GLUCOSE 105 mg/dL (75-110); PHOSPHORUS 1.4 mg/dL (2.5-4.5); POTASSIUM 3.2 mmol/L (3.6-5.0); TOTAL PROTEIN 5.8 g/dL (6.3-8.2)
[2019-11-07] MEDS: FAMOTIDINE INJ/PF 20 MG/2 ML SDV IV SCH ×2 (09:03→21:18)
[2019-11-07] MEDS: THIAMINE HCL 100 MG, FOLIC ACID 1 MG in NORMAL SALINE 250 ML IV SCH (09:06)
[2019-11-07] MEDS ORDERED: ZIPRASIDONE MESYLATE INJ/PF 20 MG SDV IM ONE (11:01)
[2019-11-07] MEDS ORDERED: ZIPRASIDONE MESYLATE INJ/PF 20 MG SDV IM PRN (15:48)
--- NOTE | 2019-11-07 16:30 | PDOC PROGRESS REPORT ---
Subjective Progress Note for:: 11/07/19 Subjective:: Patient apparently had a rough night and although initially during the daytime he was Spanish he became more aggressive as time went on today. He received 1 dose of 10 mg of Geodon and so far this seems to be keeping him pretty quiet. Reason For Visit: ALCOHOL WITHDRAWAL DELERIUM Physical Exam Vital Signs: Temp Pulse Resp BP Pulse Ox 98.3 F 109 H 18 154/84 H 95 11/07/19 07:07 11/07/19 07:07 11/07/19 07:07 11/07/19 07:07 11/07/19 07:07 Intake & Output 11/06/19 11/07/19 11/08/19 06:59 06:59 06:59 Intake Total 3744.2 4245.2 1105.2 Output Total 1000 1950 500 Balance 2744.2 2295.2 605.2 Weight 119.6 kg 119.3 kg General appearance: PRESENT: no acute distress, obese Head exam: PRESENT: atraumatic Respiratory exam: PRESENT: clear to auscultation katerina, unlabored GI/Abdominal exam: PRESENT: firm Rectal exam: PRESENT: deferred Extremities exam: PRESENT: +1 edema Neurological exam: PRESENT: awake, oriented to place Psychiatric exam: PRESENT: agitated, other - restless Results Laboratory Results: 11/06/19 07:41 11/07/19 05:53 11/07/19 05:53 Sodium 139.9 Potassium 3.2 L Chloride 101 Carbon Dioxide 28 Anion Gap 11 BUN 2 L Creatinine 0.70 Est GFR ( Amer) > 60 Glucose 105 Calcium 7.3 L Phosphorus 1.4 L Total Bilirubin 5.4 H AST 270 H Alkaline Phosphatase 136 H Total Protein 5.8 L Albumin 3.1 L 11/05/19 11/05/19 02:30 02:30 Creatine Kinase 429 H CK-MB (CK-2) 3.32 Troponin I 0.039 Assessment and Plan - Diagnosis (1) Alcohol withdrawal Qualifiers: Complication of substance-induced condition: with delirium Qualified Code(s): F10.231 - Alcohol dependence with withdrawal delirium Is this a current diagnosis for this admission?: Yes Plan: Continue with seizure precautions, thiamine, folate, Valium and Ativan PRN Patient also received Geodon today which seems to work better than the other agents (2) Alcoholic hepatitis Qualifiers: Ascites presence: without ascites Qualified Code(s): K70.10 - Alcoholic hepatitis without ascites Is this a current diagnosis for this admission?: Yes Plan: Follow-up LFTs in am (3) Hypokalemia Is this a current diagnosis for this admission?: Yes Plan: We will continue to replace and recheck in am (4) Hypomagnesemia Is this a current diagnosis for this admission?: Yes Plan: Corrected (5) Hypophosphatemia Is this a current diagnosis for this admission?: Yes Plan: Likely nutritional and secondary to his alcohol abuse Continue to replace
[2019-11-07] MEDS ORDERED: POTASSIUM PHOS,M-BASIC-D-BASIC 60 MMOL in NORMAL SALINE 1000 ML 1,000 ML IV ONE (18:00)
[2019-11-07] MEDS: SERTRALINE HCL 50 MG TABLET PO SCH (21:18)
[2019-11-08] MEDS ORDERED: ACETAMINOPHEN 325 MG SUPP.RECT PR ONE (00:19)
[2019-11-08] MEDS ORDERED: ACETAMINOPHEN 650 MG SUPP.RECT PR ONE (00:45)
[2019-11-08 01:13] LABS: APPEARANCE,URINE CLEAR; BILIRUBIN,URINE SMALL (NEGATIVE); COLOR,URINE AMBER; GLUCOSE, URINE NEGATIVE (NEGATIVE); KETONES,URINE 20 mg/dL (NEGATIVE); LEUKOCYTE ESTERASE,URINE NEGATIVE (NEGATIVE); NITRITE,URINE NEGATIVE (NEGATIVE); PROTEIN,URINE 30 mg/dL (NEGATIVE); URINE SPECIFIC GRAVITY 1.013
[2019-11-08 01:27] LABS: HEMATOCRIT 37.3 % (37.9-51.0); HEMOGLOBIN 12.2 g/dL (13.5-17.0); MEAN CORPUSCULAR HEMOGLOBIN 33.3 pg (27.0-33.4); MEAN CORPUSCULAR HGB CONC 32.6 g/dL (32.0-36.0); MEAN CORPUSCULAR VOLUME 102 fl (80-97); PLATELET COUNT 119 10^3/uL (150-450); RED BLOOD COUNT 3.65 10^6/uL (4.35-5.55); RED CELL DISTRIBUTION WIDTH 16.2 % (11.5-14.0)
[2019-11-08 01:54] LABS: ABSOLUTE LYMPHOCYTES# (MANUAL) 0.7 10^3/uL (0.5-4.7); ABSOLUTE MONOCYTES # (MANUAL) 0.2 10^3/uL (0.1-1.4); BAND NEUTROPHILS % (MANUAL) 4 % (3-5); BASOPHILS % (MANUAL) 1 % (0-2); EOSINOPHILS % (MANUAL) 1 % (0-6); LYMPHOCYTES % (MANUAL) 9 % (13-45); MONOCYTES % (MANUAL) 2 % (3-13); NUCLEATED RED BLOOD CELLS 1 /100 WBC (0); SEGMENTED NEUTROPHILS % (MAN) 83 % (42-78); TOTAL CELLS COUNTED 100
[2019-11-08 01:55] LABS: ANISOCYTOSIS 1+; PLATELET COMMENT DECREASED; TOXIC VACUOLATION PRESENT
[2019-11-08 01:57] LABS: TEAR DROP CELLS SLIGHT
[2019-11-08 01:58] LABS: POLYCHROMASIA SLIGHT
[2019-11-08] MEDS: DEXTROSE 5%-LACTATED RINGERS 1,000 ML IV PRN (02:06)
[2019-11-08] MEDS: DIAZEPAM INJ 10 MG/2 ML DISP.SYRIN IV PRN ×5 (03:26→22:01)
--- NOTE | 2019-11-08 03:30 | Progress Note ---
Provider Note Provider Note: Critical care note: 11/08/2019 Critical care onset time: 00:11 Critical care issue: Fever of 104.2 F Patient was seen at the request of his nurse who noted him to be tachycardic on the patient monitor and upon checking his temperature found to have a fever of 104.2 F orally. Patient was seemingly comfortable and had no complaints. Upon my evaluation the patient he again was noted to have no complaints. He was noted to be tachycardic with a regular rate and rhythm and no evidence of murmurs clicks gallops or rubs. Chest was clear to auscultation throughout all partida and respirations were unlabored and equal bilaterally. Abdomen soft with bowel sounds present in all 4 quadrants. Extremities feel no clubbing cyanosis or edema. CBC and UA were unremarkable blood cultures are pending. At this point with no clear etiology of the fever I am electing to treat it symptomatically but I will not empirically start antibiotics with no idea of the etiology of the fever prior to doing so. Patient will be observed on an ongoing basis for any changes in his status. Critical care end time: 03:30 Total critical care time: 18 minutes
[2019-11-08] MEDS ORDERED: CHLORPROMAZINE HCL INJ 25 MG/1 ML AMPULE ONE (04:28)
[2019-11-08] MEDS: CHLORPROMAZINE HCL INJ 25 MG/1 ML AMPULE IV PRN (05:17)
[2019-11-08] MEDS: HEPARIN SOD (PORCINE) 5,000 UNIT/ML 1 ML VIAL SUBCUT SCH ×3 (06:03→22:01)
[2019-11-08 08:11] LABS: HEMATOCRIT 35.5 % (37.9-51.0); MEAN CORPUSCULAR HEMOGLOBIN 34.5 pg (27.0-33.4); MEAN CORPUSCULAR HGB CONC 33.9 g/dL (32.0-36.0); MEAN CORPUSCULAR VOLUME 102 fl (80-97); RED BLOOD COUNT 3.49 10^6/uL (4.35-5.55); RED CELL DISTRIBUTION WIDTH 16.4 % (11.5-14.0); WHITE BLOOD COUNT 6.9 10^3/uL (4.0-10.5)
[2019-11-08 08:14] LABS: ABSOLUTE LYMPHOCYTES# (MANUAL) 0.2 10^3/uL (0.5-4.7); ABSOLUTE MONOCYTES # (MANUAL) 0.3 10^3/uL (0.1-1.4); BAND NEUTROPHILS % (MANUAL) 3 % (3-5); BASOPHILS % (MANUAL) 0 % (0-2); EOSINOPHILS % (MANUAL) 0 % (0-6); LYMPHOCYTES % (MANUAL) 3 % (13-45); MONOCYTES % (MANUAL) 5 % (3-13); SEGMENTED NEUTROPHILS % (MAN) 89 % (42-78); TOTAL CELLS COUNTED 100
[2019-11-08 08:17] LABS: ANISOCYTOSIS 1+; PLATELET CLUMPS PRESENT; PLATELET LARGE PRESENT; POLYCHROMASIA 1+; TARGET CELLS SLIGHT; TOXIC VACUOLATION PRESENT
[2019-11-08 08:18] LABS: PLATELET COMMENT DECREASED; PLATELET COUNT 121 10^3/uL (150-450)
[2019-11-08] MEDS: THIAMINE HCL 100 MG, FOLIC ACID 1 MG in NORMAL SALINE 250 ML IV SCH (08:34)
[2019-11-08] MEDS: RINGERS SOLUTION,LACTATED 1,000 ML IV PRN ×5 (08:34→23:29)
[2019-11-08 08:38] LABS: ALBUMIN 3.7 g/dL (3.5-5.0); ALKALINE PHOSPHATASE 169 U/L (38-126); ASPARTATE AMINO TRANSFERASE 306 U/L (17-59); BILIRUBIN,DIRECT 7.3 mg/dL (0.0-0.4); BILIRUBIN,TOTAL 8.4 mg/dL (0.2-1.3); BLOOD UREA NITROGEN 2 mg/dL (7-20); CALCIUM 7.3 mg/dL (8.4-10.2); GLUCOSE 101 mg/dL (75-110); POTASSIUM 4.4 mmol/L (3.6-5.0); TOTAL PROTEIN 7.1 g/dL (6.3-8.2)
[2019-11-08 08:43] LABS: CARBON DIOXIDE 22 mmol/L (22-30); CHLORIDE 99 mmol/L (98-107)
[2019-11-08 08:46] LABS: ANION GAP 20 (5-19)
--- NOTE | 2019-11-08 09:01 | PDOC PROGRESS REPORT ---
Subjective Progress Note for:: 11/08/19 Subjective:: Patient was noted to be febrile sometime last night. He was also found to be tachycardic. His T-max was about 104.2. He was in sinus tachycardia up to about 150. Patient also become hypotensive. I was called this morning to see him due to persistent tachycardia and hypotension. Patient had received multiple doses of Valium about 15 mg since 5 AM and also received Geodon at about 4 AM. Despite this he remains restless and agitated. Patient is also noted to have some hematuria likely traumatic from him shearing his Daniels catheter the previous day. Reason For Visit: ALCOHOL WITHDRAWAL DELERIUM Physical Exam Vital Signs: Temp Pulse Resp BP Pulse Ox 102.9 F H 159 H 14 110/80 100 11/08/19 07:25 11/08/19 07:25 11/08/19 04:25 11/08/19 07:25 11/08/19 04:25 Intake & Output 11/07/19 11/08/19 11/09/19 06:59 06:59 06:59 Intake Total 4245.2 1105.2 Output Total 1950 2200 Balance 2295.2 -1094.8 Weight 119.3 kg 117.2 kg General appearance: PRESENT: disheveled, morbidly obese, other - restless Head exam: PRESENT: atraumatic, normocephalic Eye exam: PRESENT: EOMI, PERRLA. ABSENT: scleral icterus Mouth exam: PRESENT: dry mucosa, tongue midline Neck exam: ABSENT: carotid bruit, JVD, lymphadenopathy, thyromegaly Respiratory exam: PRESENT: clear to auscultation katerina, tachypnea. ABSENT: rales, rhonchi, wheezes Cardiovascular exam: PRESENT: +S1, +S2, tachycardia. ABSENT: diastolic murmur, rubs, systolic murmur GI/Abdominal exam: PRESENT: normal bowel sounds, soft. ABSENT: distended, guarding, mass, organolmegaly, rebound, tenderness Rectal exam: PRESENT: deferred Extremities exam: PRESENT: full ROM. ABSENT: calf tenderness, clubbing, pedal edema Neurological exam: PRESENT: altered, other - sedated but restless, unable to converse. ABSENT: motor sensory deficit Psychiatric exam: ABSENT: homicidal ideation, suicidal ideation Skin exam: PRESENT: dry, warm. ABSENT: cyanosis, rash Results Laboratory Results: 11/08/19 05:35 11/08/19 11/08/19 11/08/19 00:20 00:48 05:35 WBC 8.0 6.9 RBC 3.65 L 3.49 L Hgb 12.2 L 12.0 L Hct 37.3 L 35.5 L MCV 102 H 102 H MCH 33.3 34.5 H MCHC 32.6 33.9 RDW 16.2 H 16.4 H Plt Count 119 L 121 L Seg Neutrophils % Not Reportable Not Reportable Sodium Potassium Chloride Carbon Dioxide Anion Gap BUN Creatinine Est GFR ( Amer) Est GFR (Non-Af Amer) Glucose Calcium Phosphorus Total Bilirubin AST Alkaline Phosphatase Total Protein Albumin Urine Color [place] Urine Appearance CLEAR Urine pH 7.0 Ur Specific [place] 1.013 Urine Protein 30 H Urine Glucose (UA) NEGATIVE Urine Ketones 20 H Urine Blood SMALL H Urine Nitrite NEGATIVE Ur Leukocyte Esterase NEGATIVE Urine WBC (Auto) 2 Urine RBC (Auto) 35 11/08/19 05:35 WBC RBC Hgb Hct MCV MCH MCHC RDW Plt Count Seg Neutrophils % Sodium Cancelled Potassium Cancelled Chloride Cancelled Carbon Dioxide Cancelled Anion Gap Cancelled BUN Cancelled Creatinine Cancelled Est GFR ( Amer) Cancelled Est GFR (Non-Af Amer) Cancelled Glucose Cancelled Calcium Cancelled Phosphorus Cancelled Total Bilirubin Cancelled AST Cancelled Alkaline Phosphatase Cancelled Total Protein Cancelled Albumin Cancelled Urine Color Urine Appearance Urine pH Ur Specific [place] Urine Protein Urine Glucose (UA) Urine Ketones Urine Blood Urine Nitrite Ur Leukocyte Esterase Urine WBC (Auto) Urine RBC (Auto) 11/05/19 11/05/19 02:30 02:30 Creatine Kinase 429 H CK-MB (CK-2) 3.32 Troponin I 0.039 Assessment and Plan - Diagnosis (1) Alcohol withdrawal Qualifiers: Complication of substance-induced condition: with delirium Qualified Code(s): F10.231 - Alcohol dependence with withdrawal delirium Is this a current diagnosis for this admission?: Yes Plan: Patient appears to be in full blown withdrawal. He is tachycardic, tachypneic, febrile, hypotensive and more agitated despite being on benzodiazepines. At this time I think patient will benefit from ICU transfer and being sedated may be hopefully on Precedex or other sedatives. He needs more intensive care. I did talk to the harbor tug captain and he has come up to evaluate the patient and patient is to be transferred to the ICU (2) Alcoholic hepatitis Qualifiers: Ascites presence: without ascites Qualified Code(s): K70.10 - Alcoholic hepatitis without ascites Is this a current diagnosis for this admission?: Yes Plan: Secondary to alcohol abuse. Continue to follow LFTs (3) Hypokalemia Is this a current diagnosis for this admission?: Yes Plan: We will replace (4) Hypomagnesemia Is this a current diagnosis for this admission?: Yes Plan: Corrected (5) Hypophosphatemia Is this a current diagnosis for this admission?: Yes Plan: Likely nutritional and secondary to his alcohol abuse Continue to replace and monitor - Time Time Spent with patient: 35 or more minutes Medications reviewed and adjusted accordingly: Yes Disposition: Patient transferred to the intensive care unit for further management
[2019-11-08] MEDS: FAMOTIDINE INJ/PF 20 MG/2 ML SDV IV SCH ×2 (10:00→22:01)
--- NOTE | 2019-11-08 10:41 | EKG REPORT ---
SEVERITY:- ABNORMAL ECG - SINUS TACHYCARDIA PROBABLE POSTERIOR INFARCT NONSPECIFIC T ABNORMALITIES, INFERIOR LEADS : Confirmed by: Jude Gimenez 08-Nov-2019 10:40:41
--- NOTE | 2019-11-08 11:01 | CRITICAL CARE ADMISSION REPORT ---
HPI Date:: 11/08/19 Time:: 08:45 Reason for ICU Reason:: Worsening alcohol WD, tachycardia, relatively low BP HPI: This patient is a 49 yo man admitted in alcohol WD. Treated on the floor with ativan and IVF. He has since become worse with more agitation, decompensated neuro status. Today he contiued but with more tachycardia to 150s, BP in 90s. He has pulled his rios catherter with some hematuria. He is somewhat hypocalcemic, hypomagnesemic and febrile. There is a question of aspiration. History obtained from:: Hospitalist and old records. - Diagnosis/Plan (1) Acute renal failure Qualifiers: Acute renal failure type: unspecified Qualified Code(s): N17.9 - Acute kidney failure, unspecified Is this a current diagnosis for this admission?: Yes Plan: Resolved (2) Alcohol withdrawal Qualifiers: Complication of substance-induced condition: with delirium Qualified Code(s): F10.231 - Alcohol dependence with withdrawal delirium Is this a current diagnosis for this admission?: Yes Plan: He will need more ativan, PRN restraints. Will stop geodon as this has not been shown to help ETOH WD. IVF to improve BP and precedex and lopressor. (3) Alcoholic hepatitis Qualifiers: Ascites presence: without ascites Qualified Code(s): K70.10 - Alcoholic hepatitis without ascites Is this a current diagnosis for this admission?: Yes Plan: Not severe but LFTs are still rising. Check levels in AM. (4) Hypocalcemia Is this a current diagnosis for this admission?: Yes Plan: Check ionized and replace as needed. (5) Hypokalemia Is this a current diagnosis for this admission?: Yes Plan: Resolved for now. (6) Hypomagnesemia Is this a current diagnosis for this admission?: Yes Plan: Resolved for now. Recheck labs in AM. (7) Hypophosphatemia Is this a current diagnosis for this admission?: Yes Plan: Resolved for now. Recheck in AM. - . Plan Summary: IVF, replace electrolytes as needed. Restrain PRN. Lopressor and precedex PRN. Past Medical History Cardiac Medical History: Reports: Hypertension Pulmonary Medical History: Reports: Chronic Obstructive Pulmonary Disease (COPD) EENT Medical History: Reports: None Neurological Medical History: Reports: Seizures Endocrine Medical History: Reports: None Renal/ Medical History: Reports: None Malignancy Medical History: Reports: None GI Medical History: Reports: None Musculoskeltal Medical History: Reports: None Skin Medical History: Reports: None Psychiatric Medical History: Reports: Alcohol Dependency, Depression, Tobacco Dependency Traumatic Medical History: Reports: None Hematology: Reports: None Infectious Medical History: Reports: None Social/Family History - Social History Smoking Status: Current Every Day Smoker Frequency of Alcohol Use: Heavy Hx Recreational Drug Use: Yes Drugs: Cocaine, Marijuana, Hallucinogen, Other Hx Prescription Drug Abuse: No - Medication/Allergies Home Medications: Amlodipine Besylate [Norvasc 10 mg Tablet] 10 mg PO DAILY 09/17/19 Atenolol 100 mg PO DAILY 09/17/19 Albuterol Sulfate [Albuterol Sulfate Hfa] 2 puff IH Q4HP PRN 11/05/19 Ondansetron [Zofran Odt 4 mg Tablet] 4 mg PO Q6HP PRN 11/05/19 Propranolol HCl [Inderal 10 mg Tablet] 10 mg PO QHS 11/05/19 Sertraline HCl [Zoloft 50 mg Tablet] 50 mg PO QHS 11/05/19 Allergies/Adverse Reactions: lisinopril Adverse Reaction (Verified 09/17/19 17:53) Review of Systems ROS unobtainable: Due to mental status Physical Exam Vital Signs: Temp Pulse Resp BP Pulse Ox 102.9 F H 63 22 H 133/90 H 97 11/08/19 08:54 11/08/19 08:54 11/08/19 08:54 11/08/19 08:54 11/08/19 08:54 Intake & Output 11/07/19 11/08/19 11/09/19 06:59 06:59 06:59 Intake Total 4245.2 1105.2 Output Total 1950 2200 Balance 2295.2 -1094.8 Weight 119.3 kg 117.2 kg Weight/Height Weight 117.2 kg Height 5 ft 9 in General appearance: PRESENT: disheveled, obese Head exam: PRESENT: atraumatic, normocephalic Eye exam: PRESENT: conjunctiva pink, EOMI, PERRLA. ABSENT: scleral icterus Ear exam: PRESENT: normal external ear exam Mouth exam: PRESENT: dry mucosa Respiratory exam: PRESENT: clear to auscultation katerina. ABSENT: rales, rhonchi, wheezes Cardiovascular exam: PRESENT: tachycardia GI/Abdominal exam: PRESENT: normal bowel sounds, soft, other - Liver edge felt 4 inches below costal margin.. ABSENT: distended, guarding, mass, organolmegaly, rebound, tenderness Rectal exam: PRESENT: deferred Gentrourinary exam: PRESENT: indwelling catheter Extremities exam: PRESENT: full ROM. ABSENT: calf tenderness, clubbing, pedal edema Musculoskeletal exam: PRESENT: normal inspection Neurological exam: PRESENT: altered, other - Obtunded and encephalopathic. Laboratory/Radiographs Laboratory Results: 11/08/19 05:35 11/08/19 07:56 11/08/19 11/08/19 11/08/19 00:20 00:48 05:35 WBC 8.0 6.9 RBC 3.65 L 3.49 L Hgb 12.2 L 12.0 L Hct 37.3 L 35.5 L MCV 102 H 102 H MCH 33.3 34.5 H MCHC 32.6 33.9 RDW 16.2 H 16.4 H Plt Count 119 L 121 L Seg Neutrophils % Not Reportable Not Reportable Sodium Potassium Chloride Carbon Dioxide Anion Gap BUN Creatinine Est GFR ( Amer) Est GFR (Non-Af Amer) Glucose Calcium Phosphorus Total Bilirubin AST Alkaline Phosphatase Total Protein Albumin Urine Color [place] Urine Appearance CLEAR Urine pH 7.0 Ur Specific [place] 1.013 Urine Protein 30 H Urine Glucose (UA) NEGATIVE Urine Ketones 20 H Urine Blood SMALL H Urine Nitrite NEGATIVE Ur Leukocyte Esterase NEGATIVE Urine WBC (Auto) 2 Urine RBC (Auto) 35 11/08/19 11/08/19 05:35 07:56 WBC RBC Hgb Hct MCV MCH MCHC RDW Plt Count Seg Neutrophils % Sodium Cancelled 140.5 Potassium Cancelled 4.4 Chloride Cancelled 99 Carbon Dioxide Cancelled 22 Anion Gap Cancelled 20 H BUN Cancelled 2 L Creatinine Cancelled 0.67 Est GFR ( Amer) Cancelled > 60 Est GFR (Non-Af Amer) Cancelled Glucose Cancelled 101 Calcium Cancelled 7.3 L Phosphorus Cancelled 3.0 Total Bilirubin Cancelled 8.4 H AST Cancelled 306 H Alkaline Phosphatase Cancelled 169 H Total Protein Cancelled 7.1 Albumin Cancelled 3.7 Urine Color Urine Appearance Urine pH Ur Specific [place] Urine Protein Urine Glucose (UA) Urine Ketones Urine Blood Urine Nitrite Ur Leukocyte Esterase Urine WBC (Auto) Urine RBC (Auto) 11/05/19 11/05/19 02:30 02:30 Creatine Kinase 429 H CK-MB (CK-2) 3.32 Troponin I 0.039 Impressions: Alcohol WD with expected electrolyte and VS derangements. All labs, radiographs, diagnostic studies and EKGs were personally reviewed: Yes In addition, reports of radiographic and diagnostic studies were read: Yes Critical Time Critical Time (minutes): 40 -: The care of a critically ill patient is dynamic. This note represents a static moment in the admission process. Orders and treatments may be given simultaneously and urgently, and time is not business process representative of the treatment process. This patient requires Critical Care secondary to life threatening organ or limb dysfunction. Without Critical Care services, the patient is at risk for increased mortality and morbidity.
[2019-11-08] MEDS: METOPROLOL TARTRATE PF/INJ 5 MG/5 ML SDV IV PRN (11:10)
[2019-11-08] MEDS ORDERED: DEXMEDETOMIDINE IN 0.9 % NACL 400 MCG/100 ML RTUPB IV ONE (11:16)
[2019-11-08] MEDS: DEXMEDETOMIDINE IN NS 400 MCG/100 ML RTUPB IV PRN ×5 (11:20→22:04)
[2019-11-08] MEDS: SERTRALINE HCL 50 MG TABLET PO SCH (22:02)
[2019-11-09] MEDS ORDERED: NAFCILLIN SODIUM INJ 2 GM VIAL IV SCH (01:30)
[2019-11-09] MEDS ORDERED: NAFCILLIN SODIUM 1 GM in DEXTROSE 5%-WATER 50 ML IV SCH (02:00)
[2019-11-09] MEDS: DIAZEPAM INJ 10 MG/2 ML DISP.SYRIN IV PRN ×4 (02:04→15:38)
[2019-11-09] MEDS: DEXMEDETOMIDINE IN NS 400 MCG/100 ML RTUPB IV PRN ×7 (02:05→20:47)
[2019-11-09] MEDS ORDERED: NAFCILLIN SODIUM INJ 2 GM VIAL ONE (02:18)
[2019-11-09] MEDS: NAFCILLIN SODIUM 2 GM in DEXTROSE 5%-WATER 100 ML IV SCH ×6 (02:42→21:26)
[2019-11-09] MEDS: RINGERS SOLUTION,LACTATED 1,000 ML IV PRN ×4 (03:34→17:46)
[2019-11-09] MEDS: METOPROLOL TARTRATE PF/INJ 5 MG/5 ML SDV IV PRN ×2 (05:14→08:55)
[2019-11-09] MEDS: HEPARIN SOD (PORCINE) 5,000 UNIT/ML 1 ML VIAL SUBCUT SCH ×3 (06:14→21:27)
[2019-11-09 06:39] LABS: ALBUMIN 2.9 g/dL (3.5-5.0); ALKALINE PHOSPHATASE 129 U/L (38-126); ANION GAP 12 (5-19); ASPARTATE AMINO TRANSFERASE 458 U/L (17-59); BILIRUBIN,DIRECT 8.6 mg/dL (0.0-0.4); BILIRUBIN,TOTAL 9.6 mg/dL (0.2-1.3); BLOOD UREA NITROGEN 7 mg/dL (7-20); CARBON DIOXIDE 25 mmol/L (22-30); CHLORIDE 102 mmol/L (98-107); GLUCOSE 127 mg/dL (75-110); PHOSPHORUS 2.8 mg/dL (2.5-4.5); POTASSIUM 4.1 mmol/L (3.6-5.0); TOTAL PROTEIN 5.6 g/dL (6.3-8.2)
[2019-11-09] MEDS ORDERED: CALCIUM GLUCONATE 1000 MG/10 ML INJ IV ONE (07:44)
[2019-11-09] MEDS: MAGNESIUM SULFATE/D5W 1 GM/100 ML RTUPB IV SCH ×8 (08:53→15:59)
[2019-11-09] MEDS: THIAMINE HCL 100 MG, FOLIC ACID 1 MG in NORMAL SALINE 250 ML IV SCH (08:54)
[2019-11-09] MEDS ORDERED: SODIUM PHOS,M-BASIC-D-BASIC 30 MMOL in NORMAL SALINE 250 ML IV ONE ×2 (09:00→13:00)
[2019-11-09] MEDS: FAMOTIDINE INJ/PF 20 MG/2 ML SDV IV SCH ×2 (09:26→21:27)
--- NOTE | 2019-11-09 11:22 | PDOC CRITICAL CARE PROG REPORT ---
General Date:: 11/09/19 ICU Day:: 4 Hospital Day:: 4 Resuscitation Status: Full Code Events in the past 12 to 24 Hours:: More sedated and compliant with precedex. Review of systems relevant to events:: Neurological respiratory, CV Reason for ICU Addmission:: Worsening alcohol WD, tachycardia, relatively low BP - Medications: Medications reviewed and adjusted accordingly: Yes Vasopressors:: None Sedation:: Precedex, ativan. Physical Exam Vital Signs: Temp Pulse Resp BP Pulse Ox 97.9 F 74 21 H 134/99 H 100 11/09/19 10:00 11/09/19 10:00 11/09/19 10:00 11/09/19 10:00 11/09/19 10:00 Intake & Output 11/08/19 11/09/19 11/10/19 06:59 06:59 06:59 Intake Total 1105.2 5608.2 1551.2 Output Total 2200 1120 275 Balance -1094.8 4488.2 1276.2 Weight 117.2 kg 122.9 kg Weight/Height Weight 122.9 kg Height 5 ft 9 in General appearance: PRESENT: no acute distress, disheveled, obese Head exam: PRESENT: atraumatic, normocephalic Eye exam: PRESENT: conjunctiva pink, EOMI, PERRLA, scleral icterus Ear exam: PRESENT: normal external ear exam Mouth exam: PRESENT: moist, tongue midline Respiratory exam: PRESENT: clear to auscultation katerina. ABSENT: rales, rhonchi, wheezes Cardiovascular exam: PRESENT: RRR. ABSENT: diastolic murmur, rubs, systolic murmur Vascular exam: PRESENT: normal capillary refill GI/Abdominal exam: PRESENT: normal bowel sounds, soft, other - Liver edge felt about 4 inches below costal margin. Feels less rubbery.. ABSENT: distended, guarding, mass, organolmegaly, rebound, tenderness Rectal exam: PRESENT: deferred Gentrourinary exam: PRESENT: indwelling catheter Extremities exam: PRESENT: full ROM. ABSENT: calf tenderness, clubbing, pedal edema Musculoskeletal exam: PRESENT: normal inspection Neurological exam: PRESENT: altered, other - In DTs and sedated. Skin exam: PRESENT: dry, intact, warm. ABSENT: cyanosis, rash Laboratory/Radiographs Laboratory Results: 11/08/19 05:35 11/09/19 06:02 11/09/19 11/09/19 06:02 06:02 Sodium 138.9 Potassium 4.1 Chloride 102 Carbon Dioxide 25 Anion Gap 12 BUN 7 Creatinine 0.54 Est GFR ( Amer) > 60 Glucose 127 H Calcium 7.0 L* Ionized Calcium Rhonda 0.92 L Phosphorus 2.8 Magnesium 1.1 L* Total Bilirubin 9.6 H AST 458 H Alkaline Phosphatase 129 H Total Protein 5.6 L Albumin 2.9 L 11/08/19 05:30 Blood Blood Culture (PCR) - Final Staphylococcus Aureus 11/08/19 00:48 Blood Blood Culture (PCR) - Final Staphylococcus Aureus 11/05/19 11/05/19 02:30 02:30 Creatine Kinase 429 H CK-MB (CK-2) 3.32 Troponin I 0.039 Impressions: Alcohol WD with associated electrolyte disturbances. All labs, radiographs, diagnostic studies and EKGs were personally reviewed: Yes In addition, reports of radiographic and diagnostic studies were read: Yes Assessment and Plan - Diagnosis (1) Alcohol withdrawal Qualifiers: Complication of substance-induced condition: with delirium Qualified Code(s): F10.231 - Alcohol dependence with withdrawal delirium Is this a current diagnosis for this admission?: Yes Plan: More stable on precedex with ativan. Will gradually wean off. (2) Acute renal failure Qualifiers: Acute renal failure type: unspecified Qualified Code(s): N17.9 - Acute kidney failure, unspecified Is this a current diagnosis for this admission?: Yes Plan: Resolved (3) Alcoholic hepatitis Qualifiers: Ascites presence: without ascites Qualified Code(s): K70.10 - Alcoholic hepatitis without ascites Is this a current diagnosis for this admission?: Yes Plan: LFTs still climbing but under 500. (4) Hypocalcemia Is this a current diagnosis for this admission?: Yes Plan: Resolved (5) Hypokalemia Is this a current diagnosis for this admission?: Yes Plan: Resolved (6) Hypomagnesemia Is this a current diagnosis for this admission?: Yes Plan: Replace. (7) Hypophosphatemia Is this a current diagnosis for this admission?: Yes Plan: Replace. Plan Summary: Replace electrolytes and gradually wean precedex. Critical Time Critical Time (minutes): 355 Level of Care: ICU Anticipated discharge: Other - Rehab for alcohol. -: 1. The care of a critical patient is a dynamic process. This note is a business office representative synopsis but static in nature. The timeframe for treatments given in order is not necessarily the actual time these treatments may have been done. 2. This patient requires critical care secondary to ongoing requirements for therapy not offered or safe outside the critical care environment. Transfer to a lower level of care will result in altered life or limb morbidity and mortality. 3. Multidisciplinary rounds completed. 4. ABCDE bundle addressed.
--- NOTE | 2019-11-09 19:34 | Progress Note ---
Provider Note Provider Note: Critical care note: 11/09/2019 Critical care start time: 03:05 Critical care issue: Progressive hypoxia I was informed by the patient's nurse that his oxygen saturation had been gradually worsening and he was unable to be off BiPAP even for 30 to 60 seconds to take oral medications or drink water due to his oxygen saturation falling into the low 70s. His oxygen saturation had gradually diminished from the mid 90s to the high 80s while on BiPAP using pressure settings of 12/6 and 50% FiO2. On exam the patient's chest showed coarse rales and rhonchi throughout all partida with decreased breath sounds at both bases and a mildly prolonged expiratory phase and a marked tachypnea in the 40's was noted. Patient severely showed labored breathing when the BiPAP was removed. Heart showed a regular rate and rhythm without murmurs. Abdomen is soft and nontender with bowel sounds present in all 4 quadrants. Extremities show no cyanosis or edema. The patient's pressure settings were increased to 16/8 and his O2 sat improved into the mid 90s and his respiratory rate decreased into the low 30s. Patient was observed for an extended period and was noted to be confused and struggling against his soft restraints with increased tachypnea and decreased oxygen saturation noted during his struggles. He was given Haldol 10 mg IV x1 and also received Ativan 1 mg IV. His agitation and overall behavior improved with more extended periods of rest and less struggling against his restraints following medication. Patient was observed over several different evaluations over the next 2 hours and was found to have gradually worsening symptoms with his oxygen saturation again dropping down into the high 80s and his respiratory rate increasing into the mid 30s. His BiPAP settings were adjusted to a pressure setting of 18/10 and his FiO2 was continued at 50%. The intensive care midlevel was notified as the patient's condition was gradually worsening. We discussed the patient's symptoms and clinical findings, course of therapy and his laboratory and x-ray findings. The edge brusher service came to evaluate the patient based on our discussion and subsequently determined that they would move the patient to the ICU as the need for intubation and mechanical ventilation was highly likely. Critical care end time: 06:55 Total critical care time: 69 minutes
[2019-11-09] MEDS: SERTRALINE HCL 50 MG TABLET PO SCH (21:27)
[2019-11-10] MEDS: DEXMEDETOMIDINE IN NS 400 MCG/100 ML RTUPB IV PRN ×4 (00:17→09:01)
[2019-11-10] MEDS: DIAZEPAM INJ 10 MG/2 ML DISP.SYRIN IV PRN ×8 (00:17→21:35)
[2019-11-10] MEDS: NAFCILLIN SODIUM 2 GM in DEXTROSE 5%-WATER 100 ML IV SCH ×6 (01:46→21:26)
[2019-11-10] MEDS ORDERED: CALCIUM GLUCONATE 1000 MG/10 ML INJ IV ONE ×2 (02:48→09:57)
[2019-11-10 03:02] LABS: ALBUMIN 2.4 g/dL (3.5-5.0); ALKALINE PHOSPHATASE 179 U/L (38-126); ANION GAP 7 (5-19); ASPARTATE AMINO TRANSFERASE 294 U/L (17-59); BILIRUBIN,DIRECT 10.8 mg/dL (0.0-0.4); BLOOD UREA NITROGEN 7 mg/dL (7-20); CARBON DIOXIDE 28 mmol/L (22-30); CHLORIDE 101 mmol/L (98-107); GLUCOSE 126 mg/dL (75-110); PHOSPHORUS 2.4 mg/dL (2.5-4.5); POTASSIUM 3.8 mmol/L (3.6-5.0); TOTAL PROTEIN 5.1 g/dL (6.3-8.2)
[2019-11-10 03:22] LABS: BILIRUBIN,TOTAL 12.1 mg/dL (0.2-1.3)
[2019-11-10] MEDS: RINGERS SOLUTION,LACTATED 1,000 ML IV PRN ×2 (05:28→16:50)
[2019-11-10] MEDS ORDERED: PHARMACY COMMUNICATION ORDER MC NR (05:30)
[2019-11-10] MEDS: HEPARIN SOD (PORCINE) 5,000 UNIT/ML 1 ML VIAL SUBCUT SCH ×3 (06:07→21:25)
[2019-11-10] MEDS: PHOSPHORUS #1 250 MG TABLET NG SCH ×3 (06:09→17:35)
[2019-11-10] MEDS: LACTULOSE SYRUP 20 GM/30 ML UDCUP NG SCH ×3 (06:10→14:37)
--- NOTE | 2019-11-10 06:58 | RADIOLOGY REPORT (SQ) ---
ABDOMINAL RADIOGRAPH: 11/10/2019 5:56 AM ARCHIVIST POLITICAL HISTORY COMPARISON: None available TECHNIQUE: A single radiograph of the abdomen was obtained. HISTORY: 49-year old with nasogastric tube placement. FINDINGS: Only the upper abdomen was included on this examination. The visualized bowel gas pattern is nonspecific and nonobstructive. No abnormal intra-abdominal calcifications are seen. There are no findings to suggest organomegaly. A nasogastric tube tip is seen overlying the right upper abdomen, likely at the duodenum or pylorus. There is artifact seen over the imaging which mildly limits evaluation. There is elevation of the right hemidiaphragm. IMPRESSION: A nasogastric tube tip is seen overlying the right upper abdomen, likely at the duodenum or pylorus.
[2019-11-10] MEDS: THIAMINE HCL 100 MG, FOLIC ACID 1 MG in NORMAL SALINE 250 ML IV SCH (08:50)
[2019-11-10] MEDS: FAMOTIDINE INJ/PF 20 MG/2 ML SDV IV SCH (09:02)
--- NOTE | 2019-11-10 09:56 | PDOC CRITICAL CARE PROG REPORT ---
General Date:: 11/10/19 ICU Day:: 2 Hospital Day:: 5 Resuscitation Status: Full Code Events in the past 12 to 24 Hours:: Some agitation. Still jaundiced but LFTs beginning to improve. Review of systems relevant to events:: Neurological, respiratory, GI. Reason for ICU Addmission:: Worsening alcohol WD, tachycardia, agitation. - Medications: Medications reviewed and adjusted accordingly: Yes Vasopressors:: None Sedation:: Precedex Physical Exam Vital Signs: Temp Pulse Resp BP Pulse Ox 98.5 F 66 11 L 126/84 H 94 11/10/19 08:00 11/10/19 08:00 11/10/19 08:00 11/10/19 08:00 11/10/19 08:17 Intake & Output 11/09/19 11/10/19 11/11/19 06:59 06:59 06:59 Intake Total 5608.2 5890.2 529 Output Total 1120 1615 125 Balance 4488.2 4275.2 404 Weight 122.9 kg 127.9 kg Weight/Height Weight 127.9 kg Height 5 ft 9 in General appearance: PRESENT: no acute distress Head exam: PRESENT: atraumatic, normocephalic Eye exam: PRESENT: scleral icterus Ear exam: PRESENT: normal external ear exam Mouth exam: PRESENT: moist, tongue midline Respiratory exam: PRESENT: clear to auscultation katerina, decreased breath sounds. ABSENT: rales, rhonchi, wheezes Cardiovascular exam: PRESENT: RRR. ABSENT: diastolic murmur, rubs, systolic murmur Vascular exam: PRESENT: normal capillary refill GI/Abdominal exam: PRESENT: normal bowel sounds, soft, other - Caput medusae on abd wall.. ABSENT: distended, guarding, mass, organolmegaly, rebound, tenderness Gentrourinary exam: PRESENT: indwelling catheter Extremities exam: PRESENT: full ROM. ABSENT: calf tenderness, clubbing, pedal edema Musculoskeletal exam: PRESENT: normal inspection Neurological exam: PRESENT: altered Psychiatric exam: PRESENT: agitated Skin exam: PRESENT: jaundice Laboratory/Radiographs Laboratory Results: 11/08/19 05:35 11/10/19 02:20 11/10/19 11/10/19 11/10/19 02:20 02:20 04:15 Sodium 136.1 L Potassium 3.8 Chloride 101 Carbon Dioxide 28 Anion Gap 7 BUN 7 Creatinine 0.61 Est GFR ( Amer) > 60 Glucose 126 H Calcium 7.0 L* Ionized Calcium Rhonda 0.95 L Phosphorus 2.4 L Magnesium 2.2 D Total Bilirubin 12.1 H D AST 294 H Alkaline Phosphatase 179 H Ammonia 45.9 H Total Protein 5.1 L Albumin 2.4 L 11/08/19 05:30 Blood Blood Culture (PCR) - Final Staphylococcus Aureus 11/08/19 00:48 Blood Blood Culture (PCR) - Final Staphylococcus Aureus 11/05/19 11/05/19 02:30 02:30 Creatine Kinase 429 H CK-MB (CK-2) 3.32 Troponin I 0.039 Impressions: KUB X-Ray 11/10/19 05:17 IMPRESSION: A nasogastric tube tip is seen overlying the right upper abdomen, likely at the duodenum or pylorus. All labs, radiographs, diagnostic studies and EKGs were personally reviewed: Yes In addition, reports of radiographic and diagnostic studies were read: Yes Assessment and Plan - Diagnosis (1) Alcohol withdrawal Qualifiers: Complication of substance-induced condition: with delirium Qualified Code(s): F10.231 - Alcohol dependence with withdrawal delirium Is this a current diagnosis for this admission?: Yes Plan: Will stop precedex and assess with only ativan. (2) Acute renal failure Qualifiers: Acute renal failure type: unspecified Qualified Code(s): N17.9 - Acute kidney failure, unspecified Is this a current diagnosis for this admission?: Yes Plan: Resolved. (3) Alcoholic hepatitis Qualifiers: Ascites presence: without ascites Qualified Code(s): K70.10 - Alcoholic hepatitis without ascites Is this a current diagnosis for this admission?: Yes Plan: Improving. Bilirubin will lag behind some. (4) Hypocalcemia Is this a current diagnosis for this admission?: Yes Plan: Still low ionized replace with IV calcium. (5) Hypokalemia Is this a current diagnosis for this admission?: Yes Plan: Resolved (6) Hypomagnesemia Is this a current diagnosis for this admission?: Yes Plan: Resolved (7) Hypophosphatemia Is this a current diagnosis for this admission?: Yes Plan: Resolved (8) Hyperammonemia Is this a current diagnosis for this admission?: Yes Plan: Up slightly at 45. Start lactuose Plan Summary: Starting lactulose and stopping precedex. Critical Time Critical Time (minutes): 40 Level of Care: ICU Anticipated discharge: Acute Rehab Within: Other - Too soon to tell. -: 1. The care of a critical patient is a dynamic process. This note is a national account representative synopsis but static in nature. The timeframe for treatments given in order is not necessarily the actual time these treatments may have been done. 2. This patient requires critical care secondary to ongoing requirements for therapy not offered or safe outside the critical care environment. Transfer to a lower level of care will result in altered life or limb morbidity and mortality. 3. Multidisciplinary rounds completed. 4. ABCDE bundle addressed.
[2019-11-10] MEDS: CALCIUM GLUCONATE 1 GM/NS 50 ML RTU IV SCH ×3 (14:35→15:40)
[2019-11-10] MEDS: FAMOTIDINE 20 MG TABLET PO SCH ×2 (14:39→21:25)
[2019-11-10] MEDS: SERTRALINE HCL 50 MG TABLET PO SCH (21:25)
[2019-11-10] MEDS ORDERED: NICOTINE 21 MG/24 HR PATCH.TD24 TD ONE (21:30)
[2019-11-11] MEDS: PHOSPHORUS #1 250 MG TABLET NG SCH ×3 (00:58→12:41)
[2019-11-11] MEDS: NAFCILLIN SODIUM 2 GM in DEXTROSE 5%-WATER 100 ML IV SCH ×2 (01:42→05:53)
[2019-11-11] MEDS: DIAZEPAM INJ 10 MG/2 ML DISP.SYRIN IV PRN (01:46)
[2019-11-11] MEDS ORDERED: MELATONIN 5 MG TABLET PO ONE (03:30)
[2019-11-11] MEDS ORDERED: LORAZEPAM INJ 2 MG/1 ML VIAL IV ONE (03:30)
[2019-11-11] MEDS: RINGERS SOLUTION,LACTATED 1,000 ML IV PRN ×2 (03:56→18:14)
[2019-11-11 05:10] LABS: ALBUMIN 2.8 g/dL (3.5-5.0); ALKALINE PHOSPHATASE 260 U/L (38-126); ANION GAP 10 (5-19); ASPARTATE AMINO TRANSFERASE 215 U/L (17-59); BILIRUBIN,DIRECT 13.8 mg/dL (0.0-0.4); BLOOD UREA NITROGEN 9 mg/dL (7-20); CALCIUM 7.9 mg/dL (8.4-10.2); CARBON DIOXIDE 28 mmol/L (22-30); CHLORIDE 101 mmol/L (98-107); GLUCOSE 102 mg/dL (75-110)
[2019-11-11 05:17] LABS: POTASSIUM 2.9 mmol/L (3.6-5.0)
[2019-11-11] MEDS: HEPARIN SOD (PORCINE) 5,000 UNIT/ML 1 ML VIAL SUBCUT SCH ×3 (05:51→21:22)
[2019-11-11] MEDS: POTASSIUM CHLORIDE 20 MEQ PACKET NG SCH ×3 (05:55→17:33)
--- NOTE | 2019-11-11 06:52 | RADIOLOGY REPORT (SQ) ---
Ultrasound of the right upper quadrant of the abdomen: 11/11/2019 5:50 AM DECK SPECIALIST Technique: Multiple grayscale color Doppler images of the right upper quadrant of the abdomen were obtained. Comparison: None available History: 49-year old patient with concern for cholecystitis. Findings: The visualized portions of the hepatic parenchyma appears diffusely echogenic. There is no evidence to suggest intra or extrahepatic ductal dilatation. There is normal directional flow seen within the main portal vein. There is some possible sludge within the gallbladder lumen with trace pericholecystic fluid and possible gallbladder wall thickening. The common duct measures 4-5 mm. The right kidney measures up to 10.4 cm in length. The right kidney demonstrates normal cortical echogenicity with no evidence to suggest hydronephrosis. The visualized portions of the IVC, abdominal aorta, and pancreatic head appear normal. No free intraperitoneal fluid is seen. Impression: 1. There is likely some sludge within the gallbladder lumen with suggestion of possible trace gallbladder wall thickening and trace pericholecystic fluid. The common duct is within normal limits of size. 2. Hepatic steatosis
[2019-11-11 07:49] LABS: PHOSPHORUS 2.4 mg/dL (2.5-4.5)
--- NOTE | 2019-11-11 08:05 | PDOC CRITICAL CARE PROG REPORT ---
General Date:: 11/11/19 ICU Day:: 3 Hospital Day:: 6 Resuscitation Status: Full Code Events in the past 12 to 24 Hours:: More awake, bilirubin higher. Review of systems relevant to events:: Neurologic, GI. Reason for ICU Addmission:: Worsening alcohol WD, tachycardia, agitation. - Medications: Medications reviewed and adjusted accordingly: Yes Vasopressors:: None Sedation:: None Physical Exam Vital Signs: Temp Pulse Resp BP Pulse Ox 98.4 F 71 17 110/79 94 11/11/19 05:32 11/10/19 19:00 11/10/19 18:00 11/10/19 18:00 11/10/19 18:00 Intake & Output 11/10/19 11/11/19 11/12/19 06:59 06:59 06:59 Intake Total 5890.2 2680.2 Output Total 1615 1335 Balance 4275.2 1345.2 Weight 127.9 kg 128.8 kg Weight/Height Weight 128.8 kg Height 5 ft 9 in General appearance: PRESENT: no acute distress, cooperative, disheveled, obese Head exam: PRESENT: atraumatic, normocephalic Eye exam: PRESENT: conjunctiva pink, EOMI, PERRLA. ABSENT: scleral icterus Ear exam: PRESENT: normal external ear exam Mouth exam: PRESENT: moist, tongue midline Respiratory exam: PRESENT: clear to auscultation katerina. ABSENT: rales, rhonchi, wheezes Cardiovascular exam: PRESENT: RRR. ABSENT: diastolic murmur, rubs, systolic mu rmur GI/Abdominal exam: PRESENT: diminished bowel sounds, organolmegaly, other - Liver edge enlarged still. Rectal exam: PRESENT: deferred Gentrourinary exam: PRESENT: indwelling catheter Extremities exam: PRESENT: pedal edema Musculoskeletal exam: PRESENT: normal inspection Neurological exam: PRESENT: altered, other - More awake but still having h allucinations at times. Skin exam: PRESENT: jaundice Laboratory/Radiographs Laboratory Results: 11/08/19 05:35 11/11/19 04:36 11/11/19 11/11/19 11/11/19 04:36 04:36 04:36 Sodium 138.6 Potassium 2.9 L* Chloride 101 Carbon Dioxide 28 Anion Gap 10 BUN 9 Creatinine 0.63 Est GFR ( Amer) > 60 Glucose 102 Calcium 7.9 L Ionized Calcium Rhonda 1.05 L Phosphorus 2.4 L Magnesium 2.0 Total Bilirubin 15.0 H AST 215 H Alkaline Phosphatase 260 H Total Protein 6.0 L Albumin 2.8 L 11/08/19 00:48 Blood Blood Culture (PCR) - Final Staphylococcus Aureus 11/08/19 00:48 Blood Blood Culture - Final Staphylococcus Aureus 11/08/19 05:30 Blood Blood Culture (PCR) - Final Staphylococcus Aureus 11/08/19 05:30 Blood Blood Culture - Final Staphylococcus Aureus 11/05/19 11/05/19 02:30 02:30 Creatine Kinase 429 H CK-MB (CK-2) 3.32 Troponin I 0.039 Impressions: KUB X-Ray 11/10/19 05:17 IMPRESSION: A nasogastric tube tip is seen overlying the right upper abdomen, likely at the duodenum or pylorus. All labs, radiographs, diagnostic studies and EKGs were personally reviewed: Yes In addition, reports of radiographic and diagnostic studies were read: Yes Assessment and Plan - Diagnosis (1) Alcohol withdrawal Qualifiers: Complication of substance-induced condition: with delirium Qualified C ode(s): F10.231 - Alcohol dependence with withdrawal delirium Is this a current diagnosis for this admission?: Yes Plan: Off precedex and a bit more awake. Still delirious and having hallucinations at times. Continue with just ativan. (2) Acute renal failure Qualifiers: Acute renal failure type: unspecified Qualified Code(s): N17.9 - Acute kidney failure, unspecified Is this a current diagnosis for this admission?: Yes Plan: Resolved (3) Alcoholic hepatitis Qualifiers: Ascites presence: without ascites Qualified Code(s): K70.10 - Alcoholic hepatitis without ascites Is this a current diagnosis for this admission?: Yes Plan: It is problematic his bilirubin is still rising. LFTs are improving and glucose is holding its own. May need GI input if this trend continues. He is not in HRS. (4) Hypocalcemia Is this a current diagnosis for this admission?: Yes Plan: Still low, will replace. (5) Hypokalemia Is this a current diagnosis for this admission?: Yes Plan: Low, need to replace. Will use K-phos as he is low in phoshorous also. (6) Hypomagnesemia Is this a current diagnosis for this admission?: Yes Plan: Normal for now. (7) Hypophosphatemia Is this a current diagnosis for this admission?: Yes Plan: Will replace. (8) Hyperammonemia Is this a current diagnosis for this admission?: Yes Plan: Level in 40s. Continue lactulose. Beginning to have diarrhea. Plan Summary: No evidence of acalculous cholecystitis. No Wang's sign. Continue ativan. Critical Time Critical Time (minutes): 40 Level of Care: ICU Anticipated discharge: Acute Rehab Within: Other - Too soon to tell. -: 1. The care of a critical patient is a dynamic process. This note is a internet sales representative synopsis but static in nature. The timeframe for treatments given in order is not necessarily the actual time these treatments may have been done. 2. This patient requires critical care secondary to ongoing requirements for therapy not offered or safe outside the critical care environment. Transfer to a lower level of care will result in altered life or limb morbidity and mort ality. 3. Multidisciplinary rounds completed. 4. ABCDE bundle addressed.
[2019-11-11] MEDS: THIAMINE HCL 100 MG, FOLIC ACID 1 MG in NORMAL SALINE 250 ML IV SCH (09:12)
[2019-11-11] MEDS: CEFTRIAXONE 1 GM/D5W RTU 1 GM/50 ML RTUPB IV SCH (09:12)
[2019-11-11] MEDS: FAMOTIDINE 20 MG TABLET PO SCH (09:13)
[2019-11-11] MEDS: CALCIUM GLUC IN NACL, ISO-OSM 1 GM/50 ML RTUPB IV SCH ×2 (09:13→11:02)
[2019-11-11 09:43] LABS: INTERNATIONAL RATION (INR) 1.08
[2019-11-11 09:52] LABS: HEMATOCRIT 34.6 % (37.9-51.0); HEMOGLOBIN 11.9 g/dL (13.5-17.0); MEAN CORPUSCULAR HEMOGLOBIN 34.8 pg (27.0-33.4); MEAN CORPUSCULAR HGB CONC 34.4 g/dL (32.0-36.0); MEAN CORPUSCULAR VOLUME 101 fl (80-97); PLATELET COUNT 150 10^3/uL (150-450); RED BLOOD COUNT 3.42 10^6/uL (4.35-5.55); RED CELL DISTRIBUTION WIDTH 16.5 % (11.5-14.0); WHITE BLOOD COUNT 5.5 10^3/uL (4.0-10.5)
[2019-11-11] MEDS ORDERED: POTASSIUM PHOS,M-BASIC-D-BASIC 60 MMOL in NORMAL SALINE 1000 ML 1,000 ML IV ONE (10:00)
[2019-11-11] MEDS ORDERED: CEFTRIAXONE SODIUM 1,000 MG in DEXTROSE 5%-WATER 50 ML IV SCH (10:00)
[2019-11-11] MEDS ORDERED: MAG HYDROX/AL HYDROX/SIMETH SUSP 30 ML UDCUP NG PRN (10:30)
[2019-11-11 11:38] LABS: ABSOLUTE LYMPHOCYTES# (MANUAL) 0.9 10^3/uL (0.5-4.7); ABSOLUTE MONOCYTES # (MANUAL) 0.9 10^3/uL (0.1-1.4); BAND NEUTROPHILS % (MANUAL) 3 % (3-5); BASOPHILS % (MANUAL) 0 % (0-2); EOSINOPHILS % (MANUAL) 3 % (0-6); LYMPHOCYTES % (MANUAL) 16 % (13-45); MONOCYTES % (MANUAL) 17 % (3-13); SEGMENTED NEUTROPHILS % (MAN) 61 % (42-78); TOTAL CELLS COUNTED 100
[2019-11-11 11:40] LABS: ANISOCYTOSIS 1+; PLATELET COMMENT ADEQUATE; TEAR DROP CELLS SLIGHT; TOXIC GRANULATION SLIGHT; TOXIC VACUOLATION PRESENT
[2019-11-11] MEDS: FAMOTIDINE 20 MG TABLET NG SCH (21:23)
[2019-11-12] MEDS: METOPROLOL TARTRATE PF/INJ 5 MG/5 ML SDV IV PRN ×5 (00:54→21:33)
[2019-11-12] MEDS: DIAZEPAM INJ 10 MG/2 ML DISP.SYRIN IV PRN ×4 (00:55→10:43)
[2019-11-12] MEDS: RINGERS SOLUTION,LACTATED 1,000 ML IV PRN ×2 (03:51→23:54)
[2019-11-12 04:18] LABS: ALBUMIN 2.7 g/dL (3.5-5.0); ALKALINE PHOSPHATASE 239 U/L (38-126); ANION GAP 8 (5-19); ASPARTATE AMINO TRANSFERASE 187 U/L (17-59); BILIRUBIN,DIRECT 11.9 mg/dL (0.0-0.4); BILIRUBIN,TOTAL 13.5 mg/dL (0.2-1.3); BLOOD UREA NITROGEN 7 mg/dL (7-20); CALCIUM 7.7 mg/dL (8.4-10.2); CARBON DIOXIDE 25 mmol/L (22-30); CHLORIDE 106 mmol/L (98-107); GLUCOSE 83 mg/dL (75-110); TOTAL PROTEIN 5.6 g/dL (6.3-8.2)
[2019-11-12] MEDS: HEPARIN SOD (PORCINE) 5,000 UNIT/ML 1 ML VIAL SUBCUT SCH ×3 (05:18→21:07)
[2019-11-12 08:37] LABS: HEPATITS B SURFACE ANTIGEN Negative (Negative)
[2019-11-12 08:38] LABS: HEPATITIS C VIRUS ANTIBODY <0.1 s/co ratio (0.0-0.9)
[2019-11-12] MEDS: THIAMINE HCL 100 MG, FOLIC ACID 1 MG in NORMAL SALINE 250 ML IV SCH (09:10)
[2019-11-12] MEDS: FAMOTIDINE 20 MG TABLET NG SCH ×2 (09:10→21:08)
[2019-11-12] MEDS: CEFTRIAXONE 1 GM/D5W RTU 1 GM/50 ML RTUPB IV SCH (09:11)
--- NOTE | 2019-11-12 11:56 | PDOC CRITICAL CARE PROG REPORT ---
General Date:: 11/12/19 ICU Day:: 4 Resuscitation Status: Full Code Events in the past 12 to 24 Hours:: LFTs and bilirubin a bit better. Review of systems relevant to events:: GI, Neurological. Reason for ICU Addmission:: Worsening alcohol WD, tachycardia, agitation. - Medications: Medications reviewed and adjusted accordingly: Yes Vasopressors:: None Sedation:: None Physical Exam Vital Signs: Temp Pulse Resp BP Pulse Ox 100.0 F 118 H 17 150/110 H 94 11/12/19 08:00 11/12/19 10:00 11/12/19 10:00 11/12/19 10:00 11/12/19 10:00 Intake & Output 11/11/19 11/12/19 11/13/19 06:59 06:59 06:59 Intake Total 2680.2 3953.2 Output Total 1335 1675 500 Balance 1345.2 2278.2 -500 Weight 128.8 kg 128.2 kg Weight/Height Weight 128.2 kg Height 5 ft 9 in General appearance: PRESENT: no acute distress, obese Head exam: PRESENT: atraumatic, normocephalic Eye exam: PRESENT: conjunctiva pink, EOMI, PERRLA. ABSENT: scleral icterus Ear exam: PRESENT: normal external ear exam Mouth exam: PRESENT: moist, tongue midline Respiratory exam: PRESENT: clear to auscultation katerina. ABSENT: rales, rhonchi, wheezes Vascular exam: PRESENT: normal capillary refill GI/Abdominal exam: PRESENT: normal bowel sounds, organolmegaly, soft. ABSENT: distended, guarding, mass, rebound, tenderness Rectal exam: PRESENT: deferred Gentrourinary exam: PRESENT: indwelling catheter Extremities exam: PRESENT: full ROM. ABSENT: calf tenderness, clubbing, pedal edema Musculoskeletal exam: PRESENT: normal inspection Neurological exam: PRESENT: alert, altered, awake, oriented to person Skin exam: PRESENT: dry, intact, warm. ABSENT: cyanosis, rash Laboratory/Radiographs Laboratory Results: 11/11/19 09:23 11/12/19 03:30 11/12/19 11/12/19 03:30 03:40 Sodium 139.4 Potassium 4.0 D Chloride 106 Carbon Dioxide 25 Anion Gap 8 BUN 7 Creatinine 0.56 Est GFR ( Amer) > 60 Glucose 83 Calcium 7.7 L Ionized Calcium Rhonda 1.04 L Total Bilirubin 13.5 H AST 187 H Alkaline Phosphatase 239 H Total Protein 5.6 L Albumin 2.7 L 11/05/19 11/05/19 02:30 02:30 Creatine Kinase 429 H CK-MB (CK-2) 3.32 Troponin I 0.039 Impressions: KUB X-Ray 11/10/19 05:17 IMPRESSION: A nasogastric tube tip is seen overlying the right upper abdomen, likely at the duodenum or pylorus. All labs, radiographs, diagnostic studies and EKGs were personally reviewed: Yes In addition, reports of radiographic and diagnostic studies were read: Yes Assessment and Plan - Diagnosis (1) Alcohol withdrawal Qualifiers: Complication of substance-induced condition: with delirium Qualified Code(s): F10.231 - Alcohol dependence with withdrawal delirium Is this a current diagnosis for this admission?: Yes Plan: Still having some delirium but improved. Only on occassional ativan. (2) Acute renal failure Qualifiers: Acute renal failure type: unspecified Qualified Code(s): N17.9 - Acute kidney failure, unspecified Is this a current diagnosis for this admission?: Yes Plan: Resolved (3) Alcoholic hepatitis Qualifiers: Ascites presence: without ascites Qualified Code(s): K70.10 - Alcoholic hepatitis without ascites Is this a current diagnosis for this admission?: Yes Plan: Slightly improved. Check labs in AM. (4) Hypocalcemia Is this a current diagnosis for this admission?: Yes Plan: Replace. (5) Hypokalemia Is this a current diagnosis for this admission?: Yes Plan: Still low, replace. (6) Hypomagnesemia Is this a current diagnosis for this admission?: Yes Plan: Resolved. (7) Hypophosphatemia Is this a current diagnosis for this admission?: Yes Plan: Resolved. (8) Hyperammonemia Is this a current diagnosis for this admission?: Yes Plan: Still 43, increase lactulose. Plan Summary: Not quite ready for downgrade but I anticipate in a day he will. Critical Time Critical Time (minutes): 35 Level of Care: ICU Anticipated discharge: Acute Rehab Within: Other - Too soon to tell. -: 1. The care of a critical patient is a dynamic process. This note is a sales representative sales manager synopsis but static in nature. The timeframe for treatments given in order is not necessarily the actual time these treatments may have been done. 2. This patient requires critical care secondary to ongoing requirements for therapy not offered or safe outside the critical care environment. Transfer to a lower level of care will result in altered life or limb morbidity and mortality. 3. Multidisciplinary rounds completed. 4. ABCDE bundle addressed.
[2019-11-12] MEDS ORDERED: CALCIUM GLUCONATE 1000 MG/10 ML INJ IV ONE (12:00)
[2019-11-12] MEDS: CALCIUM GLUCONATE 1 GM/NS 50 ML RTU IV SCH ×2 (15:16→16:16)
[2019-11-12] MEDS: LACTULOSE SYRUP 20 GM/30 ML UDCUP PO SCH ×2 (15:16→17:26)
[2019-11-12] MEDS ORDERED: ONDANSETRON HCL INJ/PF 4 MG/2 ML SDV ONE (21:02)
[2019-11-12] MEDS ORDERED: ONDANSETRON HCL INJ/PF 4 MG/2 ML SDV IV ONE (21:45)
[2019-11-13] MEDS ORDERED: DIAZEPAM INJ 10 MG/2 ML DISP.SYRIN IV ONE (00:43)
[2019-11-13] MEDS: METOPROLOL TARTRATE PF/INJ 5 MG/5 ML SDV IV PRN ×3 (02:20→16:41)
[2019-11-13 04:09] LABS: ALBUMIN 2.7 g/dL (3.5-5.0); ALKALINE PHOSPHATASE 249 U/L (38-126); ANION GAP 7 (5-19); ASPARTATE AMINO TRANSFERASE 204 U/L (17-59); BILIRUBIN,DIRECT 13.4 mg/dL (0.0-0.4); BILIRUBIN,TOTAL 14.9 mg/dL (0.2-1.3); BLOOD UREA NITROGEN 9 mg/dL (7-20); CALCIUM 7.9 mg/dL (8.4-10.2); CARBON DIOXIDE 26 mmol/L (22-30); CHLORIDE 109 mmol/L (98-107); GLUCOSE 105 mg/dL (75-110); POTASSIUM 3.9 mmol/L (3.6-5.0); TOTAL PROTEIN 5.5 g/dL (6.3-8.2)
[2019-11-13 05:25] LABS: HEMATOCRIT 30.8 % (37.9-51.0); HEMOGLOBIN 10.6 g/dL (13.5-17.0); MEAN CORPUSCULAR HEMOGLOBIN 34.7 pg (27.0-33.4); MEAN CORPUSCULAR HGB CONC 34.4 g/dL (32.0-36.0); MEAN CORPUSCULAR VOLUME 101 fl (80-97); PLATELET COUNT 157 10^3/uL (150-450); RED BLOOD COUNT 3.06 10^6/uL (4.35-5.55); RED CELL DISTRIBUTION WIDTH 16.7 % (11.5-14.0); WHITE BLOOD COUNT 8.9 10^3/uL (4.0-10.5)
[2019-11-13] MEDS: HEPARIN SOD (PORCINE) 5,000 UNIT/ML 1 ML VIAL SUBCUT SCH (06:00)
[2019-11-13 06:10] LABS: ABSOLUTE LYMPHOCYTES# (MANUAL) 1.8 10^3/uL (0.5-4.7); ABSOLUTE MONOCYTES # (MANUAL) 0.7 10^3/uL (0.1-1.4); BAND NEUTROPHILS % (MANUAL) 4 % (3-5); BASOPHILS % (MANUAL) 0 % (0-2); EOSINOPHILS % (MANUAL) 1 % (0-6); LYMPHOCYTES % (MANUAL) 20 % (13-45); MONOCYTES % (MANUAL) 8 % (3-13); SEGMENTED NEUTROPHILS % (MAN) 67 % (42-78); TOTAL CELLS COUNTED 100
[2019-11-13 06:13] LABS: ANISOCYTOSIS 1+; PLATELET COMMENT ADEQUATE
[2019-11-13 06:15] LABS: TEAR DROP CELLS SLIGHT
[2019-11-13] MEDS ORDERED: NORMAL SALINE 1000 ML 1,000 ML IV PRN (08:25)
--- NOTE | 2019-11-13 08:25 | PDOC CRITICAL CARE PROG REPORT ---
General Date:: 11/13/19 ICU Day:: 5 Hospital Day:: 8 Resuscitation Status: Full Code Events in the past 12 to 24 Hours:: Having melanotic stools. Review of systems relevant to events:: Neurological, CV and now GI. Reason for ICU Addmission:: Worsening alcohol WD, tachycardia, agitation. - Medications: Medications reviewed and adjusted accordingly: Yes Vasopressors:: None Sedation:: None Physical Exam Vital Signs: Temp Pulse Resp BP Pulse Ox 99.5 F 125 H 16 161/104 H 95 11/13/19 05:50 11/12/19 19:00 11/12/19 18:00 11/12/19 18:00 11/12/19 18:00 Intake & Output 11/12/19 11/13/19 11/14/19 06:59 06:59 06:59 Intake Total 3953.2 50 Output Total 1675 2930 Balance 2278.2 -2880 Weight 128.2 kg 123.1 kg Weight/Height Weight 123.1 kg Height 5 ft 9 in General appearance: PRESENT: no acute distress, cooperative Head exam: PRESENT: atraumatic, normocephalic Eye exam: PRESENT: conjunctiva pink, EOMI, PERRLA. ABSENT: scleral icterus Ear exam: PRESENT: normal external ear exam Mouth exam: PRESENT: moist, tongue midline Respiratory exam: PRESENT: clear to auscultation katerina. ABSENT: rales, rhonchi, wheezes Cardiovascular exam: PRESENT: tachycardia GI/Abdominal exam: PRESENT: normal bowel sounds, soft. ABSENT: distended, guarding, mass, organolmegaly, rebound, tenderness Rectal exam: PRESENT: deferred, bloody stool Gentrourinary exam: PRESENT: indwelling catheter Extremities exam: PRESENT: +1 edema Musculoskeletal exam: PRESENT: normal inspection Neurological exam: PRESENT: alert, altered, awake, other - Still having occassional hallucinations Skin exam: PRESENT: dry, intact, warm. ABSENT: cyanosis, rash Laboratory/Radiographs Laboratory Results: 11/13/19 04:38 11/13/19 03:36 11/13/19 11/13/19 11/13/19 03:36 03:36 04:30 WBC RBC Hgb Hct MCV MCH MCHC RDW Plt Count Seg Neutrophils % Sodium 142.1 Potassium 3.9 Chloride 109 H Carbon Dioxide 26 Anion Gap 7 BUN 9 Creatinine 0.50 L Est GFR ( Amer) > 60 Glucose 105 Calcium 7.9 L Ionized Calcium Rhonda 1.10 L Total Bilirubin 14.9 H AST 204 H Alkaline Phosphatase 249 H Total Protein 5.5 L Albumin 2.7 L Stool Occult Blood POSITIVE 11/13/19 04:38 WBC 8.9 RBC 3.06 L Hgb 10.6 L Hct 30.8 L MCV 101 H MCH 34.7 H MCHC 34.4 RDW 16.7 H Plt Count 157 Seg Neutrophils % Not Reportable Sodium Potassium Chloride Carbon Dioxide Anion Gap BUN Creatinine Est GFR ( Amer) Glucose Calcium Ionized Calcium Rhonda Total Bilirubin AST Alkaline Phosphatase Total Protein Albumin Stool Occult Blood 11/05/19 11/05/19 02:30 02:30 Creatine Kinase 429 H CK-MB (CK-2) 3.32 Troponin I 0.039 Impressions: KUB X-Ray 11/10/19 05:17 IMPRESSION: A nasogastric tube tip is seen overlying the right upper abdomen, likely at the duodenum or pylorus. All labs, radiographs, diagnostic studies and EKGs were personally reviewed: Yes In addition, reports of radiographic and diagnostic studies were read: Yes Assessment and Plan - Diagnosis (1) Alcohol withdrawal Qualifiers: Complication of substance-induced condition: with delirium Qualified Code(s): F10.231 - Alcohol dependence with withdrawal delirium Is this a current diagnosis for this admission?: Yes Plan: Improved and easily manageble. Still hallucinating at times. On much less ativan. (2) Acute renal failure Qualifiers: Acute renal failure type: unspecified Qualified Code(s): N17.9 - Acute kidney failure, unspecified Is this a current diagnosis for this admission?: Yes Plan: Resolved. (3) Alcoholic hepatitis Qualifiers: Ascites presence: without ascites Qualified Code(s): K70.10 - Alcoholic hepatitis without ascites Is this a current diagnosis for this admission?: Yes Plan: Clinically improving but numbers a bit worse likely due to GI bleeding. (4) Hypocalcemia Is this a current diagnosis for this admission?: Yes Plan: Ionized is nearly normal today. Replace one more time and recheck levels. (5) Hypokalemia Is this a current diagnosis for this admission?: Yes Plan: Resolved (6) Hypomagnesemia Is this a current diagnosis for this admission?: Yes Plan: Only slightly low at 2.4. (7) Hypophosphatemia Is this a current diagnosis for this admission?: Yes Plan: Resolved (8) Hyperammonemia Is this a current diagnosis for this admission?: Yes Plan: Continue lactulose (9) GI bleed Qualifiers: GI bleed type/associated pathology: unspecified gastrointestinal hemorrhage type Qualified Code(s): K92.2 - Gastrointestinal hemorrhage, unspecified Is this a current diagnosis for this admission?: Yes Plan: He had melanotic stools. No history of GI bleeding. No GI coverage today. Keep in ICU due to GI bleeding. Heparin stopped, vitals stable. Give bolus. Will likely need scoping to R/O varices. Plan Summary: IVF bolus, EGD heparin stopped, on H2 annabel and carafate. Change to PPI. Critical Time Critical Time (minutes): 35 Level of Care: ICU Anticipated discharge: Acute Rehab Within: Other - Too soon to tell. -: 1. The care of a critical patient is a dynamic process. This note is a investment representative synopsis but static in nature. The timeframe for treatments given in order is not necessarily the actual time these treatments may have been done. 2. This patient requires critical care secondary to ongoing requirements for therapy not offered or safe outside the critical care environment. Transfer to a lower level of care will result in altered life or limb morbidity and mortality. 3. Multidisciplinary rounds completed. 4. ABCDE bundle addressed.
[2019-11-13] MEDS: SUCRALFATE 1 GM TABLET PO SCH ×4 (08:27→23:30)
[2019-11-13] MEDS ORDERED: CALCIUM GLUCONATE 1000 MG/10 ML INJ IV ONE (08:27)
[2019-11-13] MEDS: CEFTRIAXONE 1 GM/D5W RTU 1 GM/50 ML RTUPB IV SCH (09:21)
[2019-11-13] MEDS: CALCIUM GLUCONATE 1 GM/NS 50 ML RTU IV SCH ×2 (09:21→10:24)
[2019-11-13] MEDS: THIAMINE HCL 100 MG TABLET PO SCH (09:21)
[2019-11-13] MEDS: LACTULOSE SYRUP 20 GM/30 ML UDCUP PO SCH ×2 (09:22→17:14)
[2019-11-13] MEDS: RINGERS SOLUTION,LACTATED 1,000 ML IV PRN ×2 (11:19→21:51)
[2019-11-13] MEDS ORDERED: ONDANSETRON HCL INJ/PF 4 MG/2 ML SDV IV PRN (13:31)
[2019-11-13] MEDS: NICOTINE 21 MG/24 HR PATCH.TD24 TD PRN (14:48)
[2019-11-13 16:41] LABS: HEMATOCRIT 28.6 % (37.9-51.0); HEMOGLOBIN 9.9 g/dL (13.5-17.0); MEAN CORPUSCULAR HEMOGLOBIN 34.7 pg (27.0-33.4); MEAN CORPUSCULAR HGB CONC 34.4 g/dL (32.0-36.0); MEAN CORPUSCULAR VOLUME 101 fl (80-97); PLATELET COUNT 144 10^3/uL (150-450); RED BLOOD COUNT 2.84 10^6/uL (4.35-5.55); RED CELL DISTRIBUTION WIDTH 17.3 % (11.5-14.0); WHITE BLOOD COUNT 8.6 10^3/uL (4.0-10.5)
[2019-11-13 17:09] LABS: ABSOLUTE LYMPHOCYTES# (MANUAL) 1.7 10^3/uL (0.5-4.7); ABSOLUTE MONOCYTES # (MANUAL) 0.9 10^3/uL (0.1-1.4); ANISOCYTOSIS 1+; BAND NEUTROPHILS % (MANUAL) 5 % (3-5); BASOPHILS % (MANUAL) 0 % (0-2); EOSINOPHILS % (MANUAL) 0 % (0-6); LYMPHOCYTES % (MANUAL) 20 % (13-45); MONOCYTES % (MANUAL) 10 % (3-13); PLATELET COMMENT DECREASED; SEGMENTED NEUTROPHILS % (MAN) 65 % (42-78); TOTAL CELLS COUNTED 100
[2019-11-13] MEDS: PANTOPRAZOLE SODIUM 40 MG PACKET.DR NG SCH (17:14)
[2019-11-14 04:07] LABS: HEMATOCRIT 31.6 % (37.9-51.0); HEMOGLOBIN 10.6 g/dL (13.5-17.0); MEAN CORPUSCULAR HEMOGLOBIN 33.7 pg (27.0-33.4); MEAN CORPUSCULAR HGB CONC 33.5 g/dL (32.0-36.0); MEAN CORPUSCULAR VOLUME 101 fl (80-97); PLATELET COUNT 153 10^3/uL (150-450); RED BLOOD COUNT 3.14 10^6/uL (4.35-5.55); WHITE BLOOD COUNT 9.5 10^3/uL (4.0-10.5)
[2019-11-14 04:25] LABS: ALBUMIN 2.8 g/dL (3.5-5.0); ALKALINE PHOSPHATASE 275 U/L (38-126); ANION GAP 11 (5-19); ASPARTATE AMINO TRANSFERASE 196 U/L (17-59); BILIRUBIN,DIRECT 15.6 mg/dL (0.0-0.4); BILIRUBIN,TOTAL 17.2 mg/dL (0.2-1.3); BLOOD UREA NITROGEN 7 mg/dL (7-20); CALCIUM 7.9 mg/dL (8.4-10.2); CARBON DIOXIDE 25 mmol/L (22-30); CHLORIDE 105 mmol/L (98-107); GLUCOSE 90 mg/dL (75-110); POTASSIUM 3.6 mmol/L (3.6-5.0); TOTAL PROTEIN 6.2 g/dL (6.3-8.2)
[2019-11-14 04:27] LABS: ABSOLUTE LYMPHOCYTES# (MANUAL) 1.9 10^3/uL (0.5-4.7); ABSOLUTE MONOCYTES # (MANUAL) 1.1 10^3/uL (0.1-1.4); BAND NEUTROPHILS % (MANUAL) 3 % (3-5); BASOPHILS % (MANUAL) 0 % (0-2); EOSINOPHILS % (MANUAL) 2 % (0-6); LYMPHOCYTES % (MANUAL) 18 % (13-45); MONOCYTES % (MANUAL) 12 % (3-13); SEGMENTED NEUTROPHILS % (MAN) 63 % (42-78); TOTAL CELLS COUNTED 100
[2019-11-14 04:28] LABS: ANISOCYTOSIS 1+; PLATELET COMMENT ADEQUATE; POLYCHROMASIA SLIGHT
[2019-11-14] MEDS: PANTOPRAZOLE SODIUM 40 MG PACKET.DR NG SCH ×2 (05:07→16:00)
[2019-11-14] MEDS: SUCRALFATE 1 GM TABLET PO SCH ×3 (05:07→18:39)
[2019-11-14] MEDS: METOPROLOL TARTRATE PF/INJ 5 MG/5 ML SDV IV PRN (07:42)
--- NOTE | 2019-11-14 08:58 | PDOC CRITICAL CARE PROG REPORT ---
General Date:: 11/14/19 ICU Day:: 6 Hospital Day:: 9 Resuscitation Status: Full Code Events in the past 12 to 24 Hours:: More jaundiced, more awake though. Review of systems relevant to events:: GI, Neurological. Reason for ICU Addmission:: Worsening alcohol WD, tachycardia, agitation. - Medications: Medications reviewed and adjusted accordingly: Yes Vasopressors:: None Sedation:: None Physical Exam Vital Signs: Temp Pulse Resp BP Pulse Ox 99.7 F 93 19 175/107 H 99 11/14/19 08:00 11/14/19 08:00 11/14/19 08:00 11/14/19 08:00 11/14/19 08:00 Intake & Output 11/13/19 11/14/19 11/15/19 06:59 06:59 06:59 Intake Total 100 3050 Output Total 2930 4535 450 Balance -2830 -1485 -450 Weight 123.1 kg 121.7 kg Weight/Height Weight 121.7 kg Height 5 ft 9 in General appearance: PRESENT: no acute distress Head exam: PRESENT: atraumatic, normocephalic Eye exam: PRESENT: conjunctiva pink, EOMI, PERRLA. ABSENT: scleral icterus Ear exam: PRESENT: normal external ear exam Mouth exam: PRESENT: moist, tongue midline Respiratory exam: PRESENT: clear to auscultation katerina. ABSENT: rales, rhonchi, wheezes Cardiovascular exam: PRESENT: RRR. ABSENT: diastolic murmur, rubs, systolic murmur GI/Abdominal exam: PRESENT: diminished bowel sounds, firm, other - Caput medusae Rectal exam: PRESENT: deferred Gentrourinary exam: PRESENT: indwelling catheter Extremities exam: PRESENT: full ROM. ABSENT: calf tenderness, clubbing, pedal edema Musculoskeletal exam: PRESENT: normal inspection Neurological exam: PRESENT: alert, altered, awake, oriented to person, oriented to place, oriented to time Skin exam: PRESENT: dry, intact, warm. ABSENT: cyanosis, rash Laboratory/Radiographs Laboratory Results: 11/14/19 03:49 11/14/19 03:49 11/13/19 11/14/19 11/14/19 16:06 03:49 03:49 WBC 8.6 9.5 RBC 2.84 L 3.14 L Hgb 9.9 L 10.6 L Hct 28.6 L 31.6 L MCV 101 H 101 H MCH 34.7 H 33.7 H MCHC 34.4 33.5 RDW 17.3 H 17.0 H Plt Count 144 L 153 Seg Neutrophils % Not Reportable Not Reportable Sodium 140.7 Potassium 3.6 Chloride 105 Carbon Dioxide 25 Anion Gap 11 BUN 7 Creatinine 0.48 L Est GFR ( Amer) > 60 Glucose 90 Calcium 7.9 L Total Bilirubin 17.2 H AST 196 H Alkaline Phosphatase 275 H Ammonia Total Protein 6.2 L Albumin 2.8 L 11/14/19 03:49 WBC RBC Hgb Hct MCV MCH MCHC RDW Plt Count Seg Neutrophils % Sodium Potassium Chloride Carbon Dioxide Anion Gap BUN Creatinine Est GFR ( Amer) Glucose Calcium Total Bilirubin AST Alkaline Phosphatase Ammonia 54.2 H Total Protein Albumin 11/05/19 11/05/19 02:30 02:30 Creatine Kinase 429 H CK-MB (CK-2) 3.32 Troponin I 0.039 Impressions: KUB X-Ray 11/10/19 05:17 IMPRESSION: A nasogastric tube tip is seen overlying the right upper abdomen, likely at the duodenum or pylorus. All labs, radiographs, diagnostic studies and EKGs were personally reviewed: Yes In addition, reports of radiographic and diagnostic studies were read: Yes Assessment and Plan - Diagnosis (1) Alcohol withdrawal Qualifiers: Complication of substance-induced condition: with delirium Qualified Code(s): F10.231 - Alcohol dependence with withdrawal delirium Is this a current diagnosis for this admission?: Yes Plan: This has pretty well run its course. Will keep ativan for anxiety. (2) Acute renal failure Qualifiers: Acute renal failure type: unspecified Qualified Code(s): N17.9 - Acute kidney failure, unspecified Is this a current diagnosis for this admission?: Yes Plan: Resolved (3) Alcoholic hepatitis Qualifiers: Ascites presence: without ascites Qualified Code(s): K70.10 - Alcoholic hepatitis without ascites Is this a current diagnosis for this admission?: Yes Plan: LFTs about the same. Bilirubin up to 17. (4) Hypocalcemia Is this a current diagnosis for this admission?: Yes Plan: Replace (5) Hypokalemia Is this a current diagnosis for this admission?: Yes Plan: Resolved (6) Hypomagnesemia Is this a current diagnosis for this admission?: Yes Plan: Resolved (7) Hypophosphatemia Is this a current diagnosis for this admission?: Yes Plan: Resolved (8) Hyperammonemia Is this a current diagnosis for this admission?: Yes Plan: Up to 54. Lactolose increased to 30mg TID. (9) GI bleed Qualifiers: GI bleed type/associated pathology: unspecified gastrointestinal hemorrhage type Qualified Code(s): K92.2 - Gastrointestinal hemorrhage, unspecified Is this a current diagnosis for this admission?: Yes Plan: No recurrence. H/H stable. When GI available may need to touch base regarding bleeding and liver. Plan Summary: Try PO liquids and TF if not able. Critical Time Critical Time (minutes): 35 Level of Care: ICU Anticipated discharge: Acute Rehab Within: Other - Too soon to tell. -: 1. The care of a critical patient is a dynamic process. This note is a bilingual call center representative synopsis but static in nature. The timeframe for treatments given in order is not necessarily the actual time these treatments may have been done. 2. This patient requires critical care secondary to ongoing requirements for therapy not offered or safe outside the critical care environment. Transfer to a lower level of care will result in altered life or limb morbidity and mortality. 3. Multidisciplinary rounds completed. 4. ABCDE bundle addressed.
[2019-11-14] MEDS: LACTULOSE SYRUP 20 GM/30 ML UDCUP PO SCH ×3 (10:25→18:39)
[2019-11-14] MEDS: THIAMINE HCL 100 MG TABLET PO SCH (10:25)
[2019-11-14] MEDS: CEFTRIAXONE 1 GM/D5W RTU 1 GM/50 ML RTUPB IV SCH (10:26)
[2019-11-15] MEDS: RINGERS SOLUTION,LACTATED 1,000 ML IV PRN ×2 (00:38→14:03)
[2019-11-15] MEDS: SUCRALFATE 1 GM TABLET PO SCH ×4 (00:40→17:14)
[2019-11-15 04:03] LABS: HEMOGLOBIN 10.4 g/dL (13.5-17.0); MEAN CORPUSCULAR HEMOGLOBIN 34.4 pg (27.0-33.4); MEAN CORPUSCULAR HGB CONC 34.5 g/dL (32.0-36.0); MEAN CORPUSCULAR VOLUME 100 fl (80-97); PLATELET COUNT 156 10^3/uL (150-450); RED BLOOD COUNT 3.01 10^6/uL (4.35-5.55); RED CELL DISTRIBUTION WIDTH 16.9 % (11.5-14.0); WHITE BLOOD COUNT 10.3 10^3/uL (4.0-10.5)
[2019-11-15 04:21] LABS: ALBUMIN 3.1 g/dL (3.5-5.0); ALKALINE PHOSPHATASE 291 U/L (38-126); ANION GAP 9 (5-19); ASPARTATE AMINO TRANSFERASE 215 U/L (17-59); BILIRUBIN,DIRECT 16.6 mg/dL (0.0-0.4); BILIRUBIN,TOTAL 18.2 mg/dL (0.2-1.3); BLOOD UREA NITROGEN 7 mg/dL (7-20); CALCIUM 8.5 mg/dL (8.4-10.2); CARBON DIOXIDE 26 mmol/L (22-30); CHLORIDE 106 mmol/L (98-107); GLUCOSE 80 mg/dL (75-110); POTASSIUM 3.6 mmol/L (3.6-5.0); TOTAL PROTEIN 6.9 g/dL (6.3-8.2)
[2019-11-15 04:38] LABS: ABSOLUTE LYMPHOCYTES# (MANUAL) 1.8 10^3/uL (0.5-4.7); ABSOLUTE MONOCYTES # (MANUAL) 1.2 10^3/uL (0.1-1.4); BAND NEUTROPHILS % (MANUAL) 3 % (3-5); BASOPHILS % (MANUAL) 0 % (0-2); EOSINOPHILS % (MANUAL) 4 % (0-6); LYMPHOCYTES % (MANUAL) 17 % (13-45); METAMYELOCYTES % (MANUAL) 1 % (0-1); MONOCYTES % (MANUAL) 12 % (3-13); SEGMENTED NEUTROPHILS % (MAN) 63 % (42-78); TOTAL CELLS COUNTED 100; TOXIC GRANULATION SLIGHT
[2019-11-15 04:39] LABS: ANISOCYTOSIS 1+; PLATELET COMMENT ADEQUATE; POLYCHROMASIA 1+
[2019-11-15] MEDS: PANTOPRAZOLE SODIUM 40 MG PACKET.DR NG SCH ×2 (06:17→17:14)
[2019-11-15 07:19] LABS: HEMATOCRIT 32.3 % (37.9-51.0); HEMOGLOBIN 10.9 g/dL (13.5-17.0); RED BLOOD COUNT 3.22 10^6/uL (4.35-5.55); WHITE BLOOD COUNT 10.1 10^3/uL (4.0-10.5)
[2019-11-15 07:20] LABS: MEAN CORPUSCULAR HGB CONC 33.9 g/dL (32.0-36.0); MEAN CORPUSCULAR VOLUME 100 fl (80-97); PLATELET COUNT 158 10^3/uL (150-450); RED CELL DISTRIBUTION WIDTH 17.5 % (11.5-14.0)
[2019-11-15 07:24] LABS: ABSOLUTE LYMPHOCYTES# (MANUAL) 1.8 10^3/uL (0.5-4.7); ABSOLUTE MONOCYTES # (MANUAL) 0.5 10^3/uL (0.1-1.4); ANISOCYTOSIS 1+; BASOPHILS % (MANUAL) 0 % (0-2); EOSINOPHILS % (MANUAL) 0 % (0-6); LYMPHOCYTES % (MANUAL) 18 % (13-45); MONOCYTES % (MANUAL) 5 % (3-13); SEGMENTED NEUTROPHILS % (MAN) 77 % (42-78); TOTAL CELLS COUNTED 100
[2019-11-15 07:25] LABS: PLATELET COMMENT ADEQUATE; POLYCHROMASIA SLIGHT; STOMATOCYTES SLIGHT
[2019-11-15] MEDS: CEFTRIAXONE 1 GM/D5W RTU 1 GM/50 ML RTUPB IV SCH (10:04)
[2019-11-15] MEDS: THIAMINE HCL 100 MG TABLET PO SCH (10:04)
[2019-11-15] MEDS: LACTULOSE SYRUP 20 GM/30 ML UDCUP PO SCH ×3 (10:04→17:14)
--- NOTE | 2019-11-15 12:46 | PDOC CRITICAL CARE PROG REPORT ---
General Date:: 11/15/19 ICU Day:: 7 Hospital Day:: 10 Resuscitation Status: Full Code Events in the past 12 to 24 Hours:: Higher bilirubin but more awake. Review of systems relevant to events:: GI and neurological. Reason for ICU Addmission:: Worsening alcohol WD, tachycardia, agitation. - Medications: Medications reviewed and adjusted accordingly: Yes Vasopressors:: None Sedation:: None Physical Exam Vital Signs: Temp Pulse Resp BP Pulse Ox 98.8 F 87 14 146/105 H 100 11/15/19 10:00 11/15/19 10:00 11/15/19 10:00 11/15/19 10:00 11/15/19 10:00 Intake & Output 11/14/19 11/15/19 11/16/19 06:59 06:59 06:59 Intake Total 3050 150 Output Total 4535 3120 455 Balance -1485 -2970 -455 Weight 121.7 kg 118.9 kg Weight/Height Weight 118.9 kg Height 5 ft 9 in General appearance: PRESENT: no acute distress, well-developed, well-nourished Head exam: PRESENT: atraumatic, normocephalic Eye exam: PRESENT: conjunctiva pink, EOMI, PERRLA. ABSENT: scleral icterus Ear exam: PRESENT: normal external ear exam Mouth exam: PRESENT: moist, tongue midline Respiratory exam: PRESENT: clear to auscultation katerina. ABSENT: rales, rhonchi, wheezes Cardiovascular exam: PRESENT: tachycardia GI/Abdominal exam: PRESENT: diminished bowel sounds, firm, other - No RUQ pain, no Mrphy"s sign. Liver smaller. Rectal exam: PRESENT: deferred Gentrourinary exam: PRESENT: indwelling catheter Extremities exam: PRESENT: full ROM. ABSENT: calf tenderness, clubbing, pedal edema Musculoskeletal exam: PRESENT: normal inspection Neurological exam: PRESENT: altered, awake, oriented to person, other - Better oriented. Skin exam: PRESENT: jaundice Laboratory/Radiographs Laboratory Results: 11/15/19 06:31 11/15/19 03:49 11/15/19 11/15/19 11/15/19 03:49 03:49 03:49 WBC 10.3 RBC 3.01 L Hgb 10.4 L Hct 30.0 L MCV 100 H MCH 34.4 H MCHC 34.5 RDW 16.9 H Plt Count 156 Seg Neutrophils % Not Reportable Sodium 141.2 Potassium 3.6 Chloride 106 Carbon Dioxide 26 Anion Gap 9 BUN 7 Creatinine 0.47 L Est GFR ( Amer) > 60 Glucose 80 Calcium 8.5 Ionized Calcium Rhonda 1.12 L Total Bilirubin 18.2 H AST 215 H Alkaline Phosphatase 291 H Ammonia Total Protein 6.9 Albumin 3.1 L 11/15/19 11/15/19 06:31 06:31 WBC 10.1 RBC 3.22 L Hgb 10.9 L Hct 32.3 L MCV 100 H MCH 34.0 H MCHC 33.9 RDW 17.5 H Plt Count 158 Seg Neutrophils % Not Reportable Sodium Potassium Chloride Carbon Dioxide Anion Gap BUN Creatinine Est GFR ( Amer) Glucose Calcium Ionized Calcium Rhonda Total Bilirubin AST Alkaline Phosphatase Ammonia 40.3 H Total Protein Albumin 11/05/19 11/05/19 02:30 02:30 Creatine Kinase 429 H CK-MB (CK-2) 3.32 Troponin I 0.039 Impressions: KUB X-Ray 11/10/19 05:17 IMPRESSION: A nasogastric tube tip is seen overlying the right upper abdomen, likely at the duodenum or pylorus. All labs, radiographs, diagnostic studies and EKGs were personally reviewed: Yes In addition, reports of radiographic and diagnostic studies were read: Yes Assessment and Plan - Diagnosis (1) Alcohol withdrawal Qualifiers: Complication of substance-induced condition: with delirium Qualified Code(s): F10.231 - Alcohol dependence with withdrawal delirium Is this a current diagnosis for this admission?: Yes Plan: Resolved (2) Acute renal failure Qualifiers: Acute renal failure type: unspecified Qualified Code(s): N17.9 - Acute kidney failure, unspecified Is this a current diagnosis for this admission?: Yes Plan: Resolved (3) Alcoholic hepatitis Qualifiers: Ascites presence: without ascites Qualified Code(s): K70.10 - Alcoholic hepatitis without ascites Is this a current diagnosis for this admission?: Yes Plan: His jaundice looks better but his bilirubin is higher. LFTs are about the same or slightly higher. There is no GI coverage this week but will try to touch base with Dr. Bocanegra for advice. (4) Hypocalcemia Is this a current diagnosis for this admission?: Yes (5) Hypokalemia Is this a current diagnosis for this admission?: Yes Plan: Resolved (6) Hypomagnesemia Is this a current diagnosis for this admission?: Yes Plan: Resolved (7) Hypophosphatemia Is this a current diagnosis for this admission?: Yes Plan: Resolved (8) Hyperammonemia Is this a current diagnosis for this admission?: Yes (9) GI bleed Qualifiers: GI bleed type/associated pathology: unspecified gastrointestinal hemorrhage type Qualified Code(s): K92.2 - Gastrointestinal hemorrhage, unspecified Is this a current diagnosis for this admission?: Yes Plan: There is no evidence of further bleeding. H/H is stable Plan Summary: Would like to speak with Dr. Weaver about further work up for alcoholic hepatitis. Critical Time Critical Time (minutes): 35 Level of Care: ICU Anticipated discharge: Acute Rehab Within: Other - Too soon to tell. -: 1. The care of a critical patient is a dynamic process. This note is a retail sales representative synopsis but static in nature. The timeframe for treatments given in order is not necessarily the actual time these treatments may have been done. 2. This patient requires critical care secondary to ongoing requirements for therapy not offered or safe outside the critical care environment. Transfer to a lower level of care will result in altered life or limb morbidity and mortality. 3. Multidisciplinary rounds completed. 4. ABCDE bundle addressed.
--- NOTE | 2019-11-15 15:06 | Progress Note ---
Provider Note Provider Note: I have spoken to Dr. Ortega in an unofficial capacity as he is not international marketing specialist. His LFTs are slightly higher as is his bilirubin. For now we continue conservative treatment and if need be obtain a formal consult at a later date.
[2019-11-15] MEDS: IBUPROFEN 600 MG TABLET PO PRN (21:46)
[2019-11-16] MEDS: SUCRALFATE 1 GM TABLET PO SCH ×5 (00:48→23:30)
[2019-11-16] MEDS: RINGERS SOLUTION,LACTATED 1,000 ML IV PRN (03:09)
[2019-11-16 04:31] LABS: ALBUMIN 2.6 g/dL (3.5-5.0); ALKALINE PHOSPHATASE 242 U/L (38-126); ANION GAP 7 (5-19); ASPARTATE AMINO TRANSFERASE 226 U/L (17-59); BILIRUBIN,DIRECT 15.1 mg/dL (0.0-0.4); BILIRUBIN,TOTAL 16.8 mg/dL (0.2-1.3); BLOOD UREA NITROGEN 5 mg/dL (7-20); CALCIUM 8.3 mg/dL (8.4-10.2); CARBON DIOXIDE 26 mmol/L (22-30); CHLORIDE 107 mmol/L (98-107); GLUCOSE 100 mg/dL (75-110); TOTAL PROTEIN 5.4 g/dL (6.3-8.2)
[2019-11-16] MEDS ORDERED: POTASSIUM CHLORIDE 20 MEQ PACKET PO ONE (05:24)
[2019-11-16] MEDS: PANTOPRAZOLE SODIUM 40 MG TABLET.DR PO SCH ×2 (06:18→18:40)
--- NOTE | 2019-11-16 10:15 | PDOC CRITICAL CARE PROG REPORT ---
General Date:: 11/16/19 Hospital Day:: 11 Resuscitation Status: Full Code Events in the past 12 to 24 Hours:: More awake oriented and alert. Wants food and to mobilize. Review of systems relevant to events:: Neurological, GI. Reason for ICU Addmission:: Still in alcoholic hepatitis. - Medications: Medications reviewed and adjusted accordingly: Yes Vasopressors:: None Sedation:: None Physical Exam Vital Signs: Temp Pulse Resp BP Pulse Ox 98.6 F 84 12 115/79 98 11/16/19 08:00 11/16/19 08:00 11/16/19 08:00 11/16/19 08:00 11/16/19 08:00 Intake & Output 11/15/19 11/16/19 11/17/19 06:59 06:59 06:59 Intake Total 150 2033 Output Total 3120 1605 Balance -2970 428 Weight 118.9 kg 117.7 kg Weight/Height Weight 117.7 kg Height 5 ft 9 in General appearance: PRESENT: no acute distress, obese Head exam: PRESENT: atraumatic, normocephalic Eye exam: PRESENT: conjunctiva pink, EOMI, PERRLA, scleral icterus - Icterus better. Ear exam: PRESENT: normal external ear exam Mouth exam: PRESENT: moist, tongue midline Respiratory exam: PRESENT: clear to auscultation katerina. ABSENT: rales, rhonchi, wheezes Cardiovascular exam: PRESENT: RRR. ABSENT: diastolic murmur, rubs, systolic murmur GI/Abdominal exam: PRESENT: normal bowel sounds, soft. ABSENT: distended, guarding, mass, organolmegaly, rebound, tenderness Rectal exam: PRESENT: deferred Extremities exam: PRESENT: full ROM. ABSENT: calf tenderness, clubbing, pedal edema Musculoskeletal exam: PRESENT: normal inspection Neurological exam: PRESENT: alert, awake, oriented to person, oriented to place, oriented to situation Skin exam: PRESENT: dry, intact, warm. ABSENT: cyanosis, rash Tubes/Lines: PRESENT: Central Line Laboratory/Radiographs Laboratory Results: 11/15/19 06:31 11/16/19 04:03 11/16/19 04:03 Sodium 139.6 Potassium 3.0 L* Chloride 107 Carbon Dioxide 26 Anion Gap 7 BUN 5 L Creatinine 0.49 L Est GFR ( Amer) > 60 Glucose 100 Calcium 8.3 L Total Bilirubin 16.8 H AST 226 H Alkaline Phosphatase 242 H Total Protein 5.4 L Albumin 2.6 L 11/05/19 11/05/19 02:30 02:30 Creatine Kinase 429 H CK-MB (CK-2) 3.32 Troponin I 0.039 Impressions: KUB X-Ray 11/10/19 05:17 IMPRESSION: A nasogastric tube tip is seen overlying the right upper abdomen, likely at the duodenum or pylorus. All labs, radiographs, diagnostic studies and EKGs were personally reviewed: Yes In addition, reports of radiographic and diagnostic studies were read: Yes Assessment and Plan - Diagnosis (1) Alcohol withdrawal Qualifiers: Complication of substance-induced condition: with delirium Qualified Code(s): F10.231 - Alcohol dependence with withdrawal delirium Is this a current diagnosis for this admission?: Yes Plan: Resolved (2) Acute renal failure Qualifiers: Acute renal failure type: unspecified Qualified Code(s): N17.9 - Acute kidney failure, unspecified Is this a current diagnosis for this admission?: Yes Plan: Resolved (3) Alcoholic hepatitis Qualifiers: Ascites presence: without ascites Qualified Code(s): K70.10 - Alcoholic hepatitis without ascites Is this a current diagnosis for this admission?: Yes Plan: Still jaundiced but starting to improve. Clinically less yellow and bilirubin down somewhat. LFTs still somewhat elevated and are still going up slightly. (4) Hypocalcemia Is this a current diagnosis for this admission?: Yes Plan: Nearly normal. (5) Hypokalemia Is this a current diagnosis for this admission?: Yes Plan: Low again will replace. (6) Hypomagnesemia Is this a current diagnosis for this admission?: Yes Plan: Stable (7) Hypophosphatemia Is this a current diagnosis for this admission?: Yes Plan: Stable. (8) Hyperammonemia Is this a current diagnosis for this admission?: Yes Plan: Lower with higher dose of lactulose (9) GI bleed Qualifiers: GI bleed type/associated pathology: unspecified gastrointestinal hemorrhage type Qualified Code(s): K92.2 - Gastrointestinal hemorrhage, unspecified Is this a current diagnosis for this admission?: Yes Plan: No evidence of bleeding, resolved Plan Summary: Regular diet, OOB PT to see. Critical Time Critical Time (minutes): 30 Level of Care: IMCU Anticipated discharge: Home Within: Other - Within a week. -: 1. The care of a critical patient is a dynamic process. This note is a c s s representative synopsis but static in nature. The timeframe for treatments given in order is not necessarily the actual time these treatments may have been done. 2. This patient requires critical care secondary to ongoing requirements for therapy not offered or safe outside the critical care environment. Transfer to a lower level of care will result in altered life or limb morbidity and mortality. 3. Multidisciplinary rounds completed. 4. ABCDE bundle addressed.
[2019-11-16] MEDS: LACTULOSE SYRUP 20 GM/30 ML UDCUP PO SCH ×3 (11:15→18:40)
[2019-11-16] MEDS: NICOTINE 21 MG/24 HR PATCH.TD24 TD PRN (11:16)
[2019-11-16] MEDS: IBUPROFEN 600 MG TABLET PO PRN (11:16)
[2019-11-16] MEDS: CEFTRIAXONE 1 GM/D5W RTU 1 GM/50 ML RTUPB IV SCH (11:16)
[2019-11-16] MEDS: THIAMINE HCL 100 MG TABLET PO SCH (11:17)
[2019-11-17] MEDS: PANTOPRAZOLE SODIUM 40 MG TABLET.DR PO SCH ×2 (05:19→16:02)
[2019-11-17] MEDS: SUCRALFATE 1 GM TABLET PO SCH ×4 (05:21→23:31)
[2019-11-17] MEDS ORDERED: FUROSEMIDE INJ/PF 40 MG/4 ML SDV ONE (07:32)
[2019-11-17 08:14] LABS: ALBUMIN 2.9 g/dL (3.5-5.0); ALKALINE PHOSPHATASE 295 U/L (38-126); ANION GAP 11 (5-19); ASPARTATE AMINO TRANSFERASE 318 U/L (17-59); BILIRUBIN,DIRECT 17.9 mg/dL (0.0-0.4); BILIRUBIN,TOTAL 19.6 mg/dL (0.2-1.3); BLOOD UREA NITROGEN 6 mg/dL (7-20); CALCIUM 8.4 mg/dL (8.4-10.2); CARBON DIOXIDE 23 mmol/L (22-30); CHLORIDE 104 mmol/L (98-107); GLUCOSE 93 mg/dL (75-110); PHOSPHORUS 1.4 mg/dL (2.5-4.5); POTASSIUM 3.4 mmol/L (3.6-5.0); TOTAL PROTEIN 6.7 g/dL (6.3-8.2)
[2019-11-17] MEDS: IBUPROFEN 600 MG TABLET PO PRN (10:39)
[2019-11-17] MEDS: THIAMINE HCL 100 MG TABLET PO SCH (10:39)
[2019-11-17] MEDS: LACTULOSE SYRUP 20 GM/30 ML UDCUP PO SCH ×3 (10:40→17:26)
[2019-11-17] MEDS: CEFTRIAXONE 1 GM/D5W RTU 1 GM/50 ML RTUPB IV SCH (10:40)
--- NOTE | 2019-11-17 14:43 | PDOC CRITICAL CARE PROG REPORT ---
General Date:: 11/17/19 Hospital Day:: 12 Resuscitation Status: Full Code Events in the past 12 to 24 Hours:: Seen walking around with PT Review of systems relevant to events:: Neurological, GI Reason for ICU Addmission:: Still in alcoholic hepatitis. - Medications: Medications reviewed and adjusted accordingly: Yes Vasopressors:: None Sedation:: None Physical Exam Vital Signs: Temp Pulse Resp BP Pulse Ox 99.7 F 118 H 18 123/70 95 11/17/19 09:20 11/17/19 07:00 11/17/19 10:44 11/17/19 10:44 11/17/19 10:44 Intake & Output 11/16/19 11/17/19 11/18/19 06:59 06:59 06:59 Intake Total 2033 1810 Output Total 1605 1365 625 Balance 428 445 -625 Weight 117.7 kg 118.1 kg Weight/Height Weight 118.1 kg Height 5 ft 9 in General appearance: PRESENT: no acute distress, obese Head exam: PRESENT: atraumatic, normocephalic Eye exam: PRESENT: conjunctiva pink, EOMI, PERRLA. ABSENT: scleral icterus Ear exam: PRESENT: normal external ear exam Mouth exam: PRESENT: moist, tongue midline Respiratory exam: PRESENT: clear to auscultation katerina. ABSENT: rales, rhonchi, wheezes Cardiovascular exam: PRESENT: RRR, tachycardia. ABSENT: diastolic murmur, rubs, systolic murmur GI/Abdominal exam: PRESENT: normal bowel sounds, soft. ABSENT: distended, guarding, mass, organolmegaly, rebound, tenderness Rectal exam: PRESENT: deferred Gentrourinary exam: PRESENT: indwelling catheter Extremities exam: PRESENT: full ROM. ABSENT: calf tenderness, clubbing, pedal edema Musculoskeletal exam: PRESENT: normal inspection Neurological exam: PRESENT: alert, awake, oriented to person, oriented to place, oriented to time, oriented to situation Skin exam: PRESENT: jaundice Laboratory/Radiographs Laboratory Results: 11/15/19 06:31 11/17/19 07:40 11/16/19 11/17/19 11/17/19 22:04 07:40 07:40 Sodium 137.8 Potassium 3.4 L 3.4 L Chloride 104 Carbon Dioxide 23 Anion Gap 11 BUN 6 L Creatinine 0.48 L Est GFR ( Amer) > 60 Glucose 93 Calcium 8.4 Ionized Calcium Rhonda 1.14 Phosphorus 1.4 L Magnesium 1.9 Total Bilirubin 19.6 H AST 318 H Alkaline Phosphatase 295 H Total Protein 6.7 Albumin 2.9 L 11/05/19 11/05/19 02:30 02:30 Creatine Kinase 429 H CK-MB (CK-2) 3.32 Troponin I 0.039 Impressions: KUB X-Ray 11/10/19 05:17 IMPRESSION: A nasogastric tube tip is seen overlying the right upper abdomen, likely at the duodenum or pylorus. All labs, radiographs, diagnostic studies and EKGs were personally reviewed: Yes In addition, reports of radiographic and diagnostic studies were read: Yes Assessment and Plan - Diagnosis (1) Alcohol withdrawal Qualifiers: Complication of substance-induced condition: with delirium Qualified Code(s): F10.231 - Alcohol dependence with withdrawal delirium Is this a current diagnosis for this admission?: Yes Plan: Resolved (2) Acute renal failure Qualifiers: Acute renal failure type: unspecified Qualified Code(s): N17.9 - Acute kidney failure, unspecified Is this a current diagnosis for this admission?: Yes Plan: Resolved (3) Alcoholic hepatitis Qualifiers: Ascites presence: without ascites Qualified Code(s): K70.10 - Alcoholic hepatitis without ascites Is this a current diagnosis for this admission?: Yes Plan: Still active with LFTs and bilirubin slightly higher. (4) Hypocalcemia Is this a current diagnosis for this admission?: Yes Plan: Resolved (5) Hypokalemia Is this a current diagnosis for this admission?: Yes (6) Hypomagnesemia Is this a current diagnosis for this admission?: Yes Plan: Resolved (7) Hypophosphatemia Is this a current diagnosis for this admission?: Yes Plan: Slightly low will give K-phos, K 3.4. (8) Hyperammonemia Is this a current diagnosis for this admission?: Yes (9) GI bleed Qualifiers: GI bleed type/associated pathology: unspecified gastrointestinal hemorrhage type Qualified Code(s): K92.2 - Gastrointestinal hemorrhage, unspecified Is this a current diagnosis for this admission?: Yes Plan: Resolved. Plan Summary: Alcoholic hepatitis not resolved yet. Ready for the floor. Critical Time Critical Time (minutes): 30 Level of Care: IMCU Anticipated discharge: Acute Rehab Within: within 72 hours -: 1. The care of a critical patient is a dynamic process. This note is a branch service representative synopsis but static in nature. The timeframe for treatments given in order is not necessarily the actual time these treatments may have been done. 2. This patient requires critical care secondary to ongoing requirements for therapy not offered or safe outside the critical care environment. Transfer to a lower level of care will result in altered life or limb morbidity and mortality. 3. Multidisciplinary rounds completed. 4. ABCDE bundle addressed.
[2019-11-17] MEDS ORDERED: HYDROCORTISONE SOD SUCCINATE INJ/PF 100 MG/2 ML SDV IV SCH (15:00)
[2019-11-17] MEDS ORDERED: CEFTRIAXONE 1 GM/D5W RTU 1 GM/50 ML RTUPB IV ONE (17:00)
[2019-11-17] MEDS: POTASSIUM CHLORIDE 10 MEQ TABLET.ER PO SCH (17:26)
--- NOTE | 2019-11-17 18:57 | Progress Note ---
Provider Note Provider Note: Patient being downgraded to the floor from the ICU. Signout received from pourer crane ladle. Chart reviewed. This is a 49-year-old male who is a heavy alcohol abuser who was initially admitted for alcohol withdrawal. Patient had worsening withdrawal symptoms and was admitted to the ICU. He was also deemed to have alcoholic hepatitis. On encounter, patient appears comfortable. Denies acute complaints. He is severely jaundiced. Labs are remarkable for worsening transaminitis. Appears patient also has been having low-grade fever in the past 72 hours. He had a blood culture which grew MSSA from 11/08/2019. We will place patient on Rocephin. Repeat blood cultures to check clearance for MSSA. Will order a TTE. MDF score <32 but MELD is >21. Start steroids for alcoholic hepatitis. DC ibuprofen.
[2019-11-18 05:51] LABS: HEMATOCRIT 29.7 % (37.9-51.0); HEMOGLOBIN 10.1 g/dL (13.5-17.0); MEAN CORPUSCULAR HEMOGLOBIN 34.4 pg (27.0-33.4); MEAN CORPUSCULAR HGB CONC 34.2 g/dL (32.0-36.0); MEAN CORPUSCULAR VOLUME 101 fl (80-97); PLATELET COUNT 227 10^3/uL (150-450); RED BLOOD COUNT 2.95 10^6/uL (4.35-5.55); RED CELL DISTRIBUTION WIDTH 17.9 % (11.5-14.0); WHITE BLOOD COUNT 11.9 10^3/uL (4.0-10.5)
[2019-11-18] MEDS: SUCRALFATE 1 GM TABLET PO SCH ×3 (05:56→17:18)
[2019-11-18] MEDS: POTASSIUM CHLORIDE 10 MEQ TABLET.ER PO SCH ×2 (05:56→17:18)
[2019-11-18] MEDS: PANTOPRAZOLE SODIUM 40 MG TABLET.DR PO SCH ×2 (05:56→17:18)
[2019-11-18 06:18] LABS: ALBUMIN 2.9 g/dL (3.5-5.0); ALKALINE PHOSPHATASE 285 U/L (38-126); ANION GAP 11 (5-19); ASPARTATE AMINO TRANSFERASE 342 U/L (17-59); BILIRUBIN,DIRECT 17.3 mg/dL (0.0-0.4); BILIRUBIN,TOTAL 19.1 mg/dL (0.2-1.3); BLOOD UREA NITROGEN 6 mg/dL (7-20); CALCIUM 8.5 mg/dL (8.4-10.2); CARBON DIOXIDE 26 mmol/L (22-30); CHLORIDE 105 mmol/L (98-107); GLUCOSE 88 mg/dL (75-110); POTASSIUM 3.7 mmol/L (3.6-5.0); TOTAL PROTEIN 6.5 g/dL (6.3-8.2)
[2019-11-18 06:36] LABS: ABSOLUTE LYMPHOCYTES# (MANUAL) 1.2 10^3/uL (0.5-4.7); ABSOLUTE MONOCYTES # (MANUAL) 1.7 10^3/uL (0.1-1.4); BASOPHILS % (MANUAL) 0 % (0-2); EOSINOPHILS % (MANUAL) 0 % (0-6); LYMPHOCYTES % (MANUAL) 10 % (13-45); MONOCYTES % (MANUAL) 14 % (3-13); SEGMENTED NEUTROPHILS % (MAN) 76 % (42-78); TOTAL CELLS COUNTED 100
[2019-11-18 06:39] LABS: ANISOCYTOSIS 1+; POLYCHROMASIA 1+
[2019-11-18 06:40] LABS: PLATELET COMMENT ADEQUATE; TARGET CELLS SLIGHT
--- NOTE | 2019-11-18 08:46 | RADIOLOGY REPORT (SQ) ---
EXAM DESCRIPTION: CT ABD/PELVIS NO ORAL OR IV COMPLETED DATE/TIME: 11/18/2019 8:27 am REASON FOR STUDY: Worsening jaundice,abd pain,poss ascites COMPARISON: Ultrasound of the abdomen from 11/11/2019. TECHNIQUE: CT scan of the abdomen and pelvis performed without intravenous or oral contrast. Images reviewed with lung, soft tissue, and bone windows. Reconstructed coronal and sagittal MPR images revi ewed. All images stored on PACS. All CT scanners at this facility use dose modulation, iterative reconstruction, and/or weight based d osing when appropriate to reduce radiation dose to as low as reasonably achievable (ALARA). [facility]: Dose Right [facility]: CareDose [facility]: Dose Right [facility]: Teradose 4D [facility]: [employer] RADIATION DOSE: CT Rad equipment meets quality standard of care and radiation dose reduction techniq ues were employed. CTDIvol: 16.0 - 26.7 mGy. DLP: 2010 mGy-cm. LIMITATIONS: None. FINDINGS: LOWER CHEST: Nonspecific ground-glass opacities in the nondependent portions of the upper lobes. There is atherosclerotic calcification of the coronary arteries. There is no pericardial or pleural effusion. NON-CONTRASTED LIVER, SPLEEN, ADRENALS: Evaluation is limited due to the absence of intravenous contr ast. The liver is enlarged. The diffuse low attenuation of the hepatic parenchyma is consistent wit h hepatic steatosis. The spleen is normal in size. There is no abnormality of the adrenal glands PANCREAS: No acute gross abnormality. GALLBLADDER: The high attenuation within the gallbladder lumen could represent sludge. RIGHT KIDNEY AND URETER: Evaluation is limited due to the absence of intravenous contrast. There is no hydronephrosis, nephrolithiasis, hydroureter or ureterolithiasis. LEFT KIDNEY AND URETER: Evaluation is limited due to the absence of intravenous contrast. There is n o hydronephrosis, nephrolithiasis, hydroureter or ureterolithiasis. AORTA AND RETROPERITONEUM: No aneurysm of the abdominal aorta. No retroperitoneal adenopathy, hemorr collin or mass. BOWEL AND PERITONEAL CAVITY: Mild nonspecific stranding of the mesenteric fat. There is no bowel obs truction, bowel wall thickening or pericolonic/ perienteric inflammation. There is no mesenteric hector nopathy, free intraperitoneal fluid or omental inflammation. APPENDIX: Unable to identify the appendix. PELVIS, BLADDER, AND ABDOMINAL WALL:The urinary bladder is partially distended. The prostate gland i s normal in size. The left inguinal canal is patulous. BONES: No acute findings. OTHER: No other finding. IMPRESSION: 1. Enlarged steatotic liver. There is no ascites. 2. Nonspecific ground-glass opacities in the nondependent portions of the upper lobes - correlation with clinical findings to exclude an infectious or inflammatory process. 3. The high attenuation within the gallbladder lumen could represent sludge. COMMENT: Quality ID # [id number]: Final reports with documentation of one or more dose reduction techniques (e.g., Automated exposure control, adjustment of the mA and/or kV according to patient size, use of iterative reconstruction technique) TECHNICAL DOCUMENTATION: JOB ID: [id number] 2010 [employer]- All Rights Reserved Reading location - IP/workstation name: [email or web address]
[2019-11-18] MEDS ORDERED: METHYLPREDNISOLONE INJ 125 MG/2 ML SDV ONE (08:57)
[2019-11-18] MEDS ORDERED: CEFTRIAXONE 1 GM/D5W RTU 1 GM/50 ML RTUPB IV ONE (08:58)
[2019-11-18] MEDS: CEFTRIAXONE 1 GM/D5W RTU 1 GM/50 ML RTUPB IV SCH (09:02)
[2019-11-18] MEDS: METHYLPREDNISOLONE INJ 40 MG/1 ML SDV IV SCH (09:02)
[2019-11-18] MEDS: LACTULOSE SYRUP 20 GM/30 ML UDCUP PO SCH ×3 (09:03→17:17)
[2019-11-18] MEDS: THIAMINE HCL 100 MG TABLET PO SCH (09:03)
--- NOTE | 2019-11-18 11:29 | PDOC PROGRESS REPORT ---
Subjective Progress Note for:: 11/18/19 Subjective:: 11/16: Patient being downgraded to the floor from the ICU. Signout received from horizontal resaw operator. Chart reviewed. This is a 49-year-old male who is a heavy alcohol abuser who was initially admitted for alcohol withdrawal. Patient had worsening withdrawal symptoms and was admitted to the ICU. He was also deemed to have alcoholic hepatitis. On encounter, patient appears comfortable. Denies acute complaints. He is severely jaundiced. Labs are remarkable for worsening transaminitis. Appears patient also has been having low-grade fever in the past 72 hours. He had a blood culture which grew MSSA from 11/08/2019. We will place patient on Rocephin. Repeat blood cultures to check clearance for MSSA. Will order a TTE. MDF score <32 but MELD is >21. Start steroids for alcoholic hepatitis. DC ibuprofen. 11/17: No acute event overnight. Patient remains jaundiced. Denies chest pain, shortness of breath or abdominal pain. Repeat blood culture from yesterday have been negative so far. TTE pending. CT of the abdomen pelvis pending. Liver enzymes remain elevated. Continue steroids. Reason For Visit: ETOH WITHDRAWAL Physical Exam Vital Signs: Temp Pulse Resp BP Pulse Ox 97.7 F 90 20 137/82 H 96 11/18/19 04:06 11/18/19 07:00 11/18/19 04:06 11/18/19 04:06 11/18/19 04:06 Intake & Output 11/17/19 11/18/19 11/19/19 06:59 06:59 06:59 Intake Total 1810 1325 Output Total 1365 1750 Balance 445 -425 Weight 260 lb 5.855 oz 252 lb 6.868 oz General appearance: PRESENT: no acute distress, well-developed, well-nourished Head exam: PRESENT: atraumatic, normocephalic Eye exam: PRESENT: EOMI, PERRLA, scleral icterus Ear exam: PRESENT: normal external ear exam Mouth exam: PRESENT: moist, tongue midline Neck exam: ABSENT: carotid bruit, JVD, lymphadenopathy, thyromegaly Respiratory exam: PRESENT: clear to auscultation katerina. ABSENT: rales, rhonchi, wheezes Cardiovascular exam: PRESENT: RRR. ABSENT: diastolic murmur, rubs, systolic murmur Pulses: PRESENT: normal dorsalis pedis pul GI/Abdominal exam: ABSENT: hyperactive bowel sounds, tenderness Rectal exam: PRESENT: deferred Neurological exam: PRESENT: alert, awake, oriented to person, oriented to place, oriented to time, CN II-XII grossly intact. ABSENT: motor sensory deficit Results Laboratory Results: 11/18/19 04:20 11/18/19 04:20 11/17/19 11/18/19 11/18/19 07:40 04:20 04:20 WBC 11.9 H RBC 2.95 L Hgb 10.1 L Hct 29.7 L MCV 101 H MCH 34.4 H MCHC 34.2 RDW 17.9 H Plt Count 227 Seg Neutrophils % Not Reportable Sodium 137.8 142.1 Potassium 3.4 L 3.7 Chloride 104 105 Carbon Dioxide 23 26 Anion Gap 11 11 BUN 6 L 6 L Creatinine 0.48 L 0.47 L Est GFR ( Amer) > 60 > 60 Glucose 93 88 Calcium 8.4 8.5 Phosphorus 1.4 L Magnesium 1.9 Total Bilirubin 19.6 H 19.1 H AST 318 H 342 H Alkaline Phosphatase 295 H 285 H Total Protein 6.7 6.5 Albumin 2.9 L 2.9 L 11/05/19 11/05/19 02:30 02:30 Creatine Kinase 429 H CK-MB (CK-2) 3.32 Troponin I 0.039 Impressions: KUB X-Ray 11/10/19 05:17 IMPRESSION: A nasogastric tube tip is seen overlying the right upper abdomen, likely at the duodenum or pylorus. Assessment and Plan - Diagnosis (1) Alcoholic hepatitis Qualifiers: Ascites presence: without ascites Qualified Code(s): K70.10 - Alcoholic hepatitis without ascites Is this a current diagnosis for this admission?: Yes Plan: Liver enzymes remain elevated. Started on steroids yesterday. Continue Solu- Medrol. (2) MSSA bacteremia Is this a current diagnosis for this admission?: Yes Plan: Continue Rocephin. TTE pending. (3) Acute renal failure Qualifiers: Acute renal failure type: unspecified Qualified Code(s): N17.9 - Acute kidney failure, unspecified Is this a current diagnosis for this admission?: Yes Plan: Resolved. (4) Alcohol withdrawal Qualifiers: Complication of substance-induced condition: with delirium Qualified Code(s): F10.231 - Alcohol dependence with withdrawal delirium Is this a current diagnosis for this admission?: Yes Plan: Resolved. (5) Hypokalemia Is this a current diagnosis for this admission?: Yes Plan: Resolved. Continue p.o. potassium. (6) Hypomagnesemia Is this a current diagnosis for this admission?: Yes Plan: Resolved. - Time Time Spent with patient: 25-34 minutes
[2019-11-19] MEDS: SUCRALFATE 1 GM TABLET PO SCH ×4 (00:15→17:06)
[2019-11-19] MEDS: PANTOPRAZOLE SODIUM 40 MG TABLET.DR PO SCH ×2 (06:01→17:06)
[2019-11-19] MEDS: POTASSIUM CHLORIDE 10 MEQ TABLET.ER PO SCH ×2 (06:01→17:06)
[2019-11-19] MEDS: CEFTRIAXONE 1 GM/D5W RTU 1 GM/50 ML RTUPB IV SCH (09:42)
[2019-11-19] MEDS: LACTULOSE SYRUP 20 GM/30 ML UDCUP PO SCH ×2 (09:42→17:06)
[2019-11-19] MEDS: METHYLPREDNISOLONE INJ 40 MG/1 ML SDV IV SCH (09:44)
[2019-11-19] MEDS: THIAMINE HCL 100 MG TABLET PO SCH (09:44)
--- NOTE | 2019-11-19 12:27 | PDOC PROGRESS REPORT ---
Subjective Progress Note for:: 11/19/19 Reason For Visit: ETOH WITHDRAWAL Physical Exam Vital Signs: Temp Pulse Resp BP Pulse Ox 98.3 F 101 H 20 133/77 H 94 11/19/19 11:52 11/19/19 11:52 11/19/19 11:52 11/19/19 11:52 11/19/19 11:52 Intake & Output 11/18/19 11/19/19 11/20/19 06:59 06:59 06:59 Intake Total 1325 2783 50 Output Total 1750 2350 Balance -425 433 50 Weight 114.5 kg 113.3 kg General appearance: PRESENT: no acute distress, cooperative, well-developed Head exam: PRESENT: atraumatic, normocephalic Eye exam: PRESENT: conjunctiva pink, scleral icterus Ear exam: PRESENT: normal external ear exam. ABSENT: bleeding, drainage Mouth exam: PRESENT: moist, tongue midline Neck exam: PRESENT: full ROM. ABSENT: carotid bruit, lymphadenopathy, tenderness, tracheal deviation, tracheostomy Respiratory exam: PRESENT: clear to auscultation katerina, symmetrical, unlabored. ABSENT: rales, rhonchi, tachypnea, wheezes Cardiovascular exam: PRESENT: RRR, +S1, +S2. ABSENT: diastolic murmur, irregular rhythm, systolic murmur GI/Abdominal exam: PRESENT: distended, normal bowel sounds, soft, tenderness. ABSENT: guarding, rigid Rectal exam: PRESENT: deferred Gentrourinary exam: ABSENT: indwelling catheter Extremities exam: PRESENT: +2 edema. ABSENT: joint swelling Musculoskeletal exam: PRESENT: ambulatory. ABSENT: deformity, tenderness Neurological exam: PRESENT: alert, awake, oriented to person, oriented to place, oriented to situation, CN II-XII grossly intact Psychiatric exam: PRESENT: flat affect, other - Anxious for discharge. ABSENT: agitated, anxious, unusual affect Focused psych exam: ABSENT: delusional, paranoid, pressured speech, restlessness Skin exam: PRESENT: jaundice Results Laboratory Results: 11/18/19 04:20 11/18/19 04:20 11/05/19 11/05/19 02:30 02:30 Creatine Kinase 429 H CK-MB (CK-2) 3.32 Troponin I 0.039 Impressions: KUB X-Ray 11/10/19 05:17 IMPRESSION: A nasogastric tube tip is seen overlying the right upper abdomen, likely at the duodenum or pylorus. Abdomen/Pelvis CT 11/17/19 09:00 IMPRESSION: 1. Enlarged steatotic liver. There is no ascites. 2. Nonspecific ground-glass opacities in the nondependent portions of the upper lobes - correlation with clinical findings to exclude an infectious or inflammatory process. 3. The high attenuation within the gallbladder lumen could represent sludge. Assessment and Plan - Diagnosis (1) Alcoholic hepatitis Qualifiers: Ascites presence: without ascites Qualified Code(s): K70.10 - Alcoholic hepatitis without ascites Is this a current diagnosis for this admission?: Yes (2) Acute renal failure Qualifiers: Acute renal failure type: unspecified Qualified Code(s): N17.9 - Acute kidney failure, unspecified Is this a current diagnosis for this admission?: Yes (3) Hypokalemia Is this a current diagnosis for this admission?: Yes (4) Hypomagnesemia Is this a current diagnosis for this admission?: Yes (5) MSSA bacteremia Is this a current diagnosis for this admission?: Yes (6) Alcohol withdrawal Qualifiers: Complication of substance-induced condition: with delirium Qualified Code(s): F10.231 - Alcohol dependence with withdrawal delirium Is this a current diagnosis for this admission?: Yes (7) Jaundice due to hepatitis Is this a current diagnosis for this admission?: Yes (8) Hepatic steatosis Is this a current diagnosis for this admission?: Yes - Plan Summary Summary: 11/19/2019 Still with markedly elevated liver enzymes. The hepatitis is likely due to alcohol. CT scan did reveal hepatic steatosis possibly is an early precursor to cirrhosis from his alcoholism. A triglyceride level can also be checked but alcohol is the most likely cause. He is currently on Solu-Medrol therapy and will likely need to see gastroenterology as an outpatient. The ceftriaxone typically does not cause elevation of liver enzymes. Staph aureus bacteremia-the patient grew methicillin sensitive staph aureus in all 4 blood culture bottles from the first set. Second set of blood cultures drawn on November 16 are still negative to this point. He has 5 more days of antibiotic therapy which can be changed to oral therapy. The acute kidney injury has resolved as has the alcohol withdrawal. We are still monitoring electrolytes including magnesium and potassium. His potassium still fluctuates in and out of the normal range. Supplemental therapy is in place. The magnesium is currently normal. - Time Time Spent with patient: 15-24 minutes Medications reviewed and adjusted accordingly: Yes Anticipated discharge: Home
[2019-11-20] MEDS: SUCRALFATE 1 GM TABLET PO SCH ×2 (02:30→06:29)
[2019-11-20 04:52] LABS: HEMATOCRIT 31.6 % (37.9-51.0); HEMOGLOBIN 10.9 g/dL (13.5-17.0); MEAN CORPUSCULAR HEMOGLOBIN 34.6 pg (27.0-33.4); MEAN CORPUSCULAR HGB CONC 34.4 g/dL (32.0-36.0); MEAN CORPUSCULAR VOLUME 101 fl (80-97); PLATELET COUNT 298 10^3/uL (150-450); RED BLOOD COUNT 3.14 10^6/uL (4.35-5.55); WHITE BLOOD COUNT 10.9 10^3/uL (4.0-10.5)
[2019-11-20 05:05] LABS: ALKALINE PHOSPHATASE 287 U/L (38-126); ANION GAP 9 (5-19); ASPARTATE AMINO TRANSFERASE 328 U/L (17-59); BILIRUBIN,DIRECT 17.7 mg/dL (0.0-0.4); BILIRUBIN,TOTAL 19.7 mg/dL (0.2-1.3); BLOOD UREA NITROGEN 6 mg/dL (7-20); CALCIUM 8.2 mg/dL (8.4-10.2); CARBON DIOXIDE 26 mmol/L (22-30); CHLORIDE 103 mmol/L (98-107); GLUCOSE 99 mg/dL (75-110); POTASSIUM 3.4 mmol/L (3.6-5.0); TOTAL PROTEIN 6.7 g/dL (6.3-8.2)
[2019-11-20 05:36] LABS: ABSOLUTE LYMPHOCYTES# (MANUAL) 1.3 10^3/uL (0.5-4.7); ABSOLUTE MONOCYTES # (MANUAL) 0.8 10^3/uL (0.1-1.4); BAND NEUTROPHILS % (MANUAL) 1 % (3-5); BASOPHILS % (MANUAL) 0 % (0-2); EOSINOPHILS % (MANUAL) 0 % (0-6); LYMPHOCYTES % (MANUAL) 12 % (13-45); MONOCYTES % (MANUAL) 7 % (3-13); SEGMENTED NEUTROPHILS % (MAN) 80 % (42-78); TOTAL CELLS COUNTED 100
[2019-11-20 05:37] LABS: POLYCHROMASIA SLIGHT; TOXIC GRANULATION SLIGHT; TOXIC VACUOLATION PRESENT
[2019-11-20 05:38] LABS: ANISOCYTOSIS 1+; OVALOCYTES SLIGHT; PLATELET COMMENT ADEQUATE; POIKILOCYTOSIS SLIGHT; SCHISTOCYTES SLIGHT
[2019-11-20] MEDS: POTASSIUM CHLORIDE 10 MEQ TABLET.ER PO SCH (06:26)
[2019-11-20] MEDS: PANTOPRAZOLE SODIUM 40 MG TABLET.DR PO SCH (06:26)
--- NOTE | 2019-11-20 09:22 | PDOC DISCHARGE SUMMARY ---
Impression - Admit/DC Date/PCP Admission Date/Primary Care Provider: 11/05/19 05:10 ROXANNE GRAY MD Discharge Date: 11/20/19 - Discharge Diagnosis (1) Alcoholic hepatitis Is this a current diagnosis for this admission?: Yes (2) Acute renal failure Is this a current diagnosis for this admission?: Yes (3) Hypokalemia Is this a current diagnosis for this admission?: Yes (4) Hypomagnesemia Is this a current diagnosis for this admission?: Yes (5) MSSA bacteremia Is this a current diagnosis for this admission?: Yes (6) Alcohol withdrawal Is this a current diagnosis for this admission?: Yes (7) Jaundice due to hepatitis Is this a current diagnosis for this admission?: Yes (8) Hepatic steatosis Is this a current diagnosis for this admission?: Yes - Assessment Summary: 11/19/2019 Still with markedly elevated liver enzymes. The hepatitis is likely due to alcohol. CT scan did reveal hepatic steatosis possibly is an early precursor to cirrhosis from his alcoholism. A triglyceride level can also be checked but alcohol is the most likely cause. He is currently on Solu-Medrol therapy and will likely need to see gastroenterology as an outpatient. The ceftriaxone typically does not cause elevation of liver enzymes. Staph aureus bacteremia-the patient grew methicillin sensitive staph aureus in all 4 blood culture bottles from the first set. Second set of blood cultures drawn on November 16 are still negative to this point. He has 5 more days of antibiotic therapy which can be changed to oral therapy. The acute kidney injury has resolved as has the alcohol withdrawal. We are still monitoring electrolytes including magnesium and potassium. His potassium still fluctuates in and out of the normal range. Supplemental therapy is in place. The magnesium is currently normal. - Additional Information Resuscitation Status: Full Code Discharge Diet: Cardiac Discharge Activity: Activity As Tolerated, Slowly Increase Activity Referrals: ROXANNE GRAY MD [Primary Care Provider] - Follow up as needed ISHAAN RICHTER MD [ACTIVE STAFF] - Prescriptions: Sucralfate [Carafate 1 gm Tablet] 1 gm PO ACHS #60 tablet Lactulose [Cephulac Syrup 20 gm/30 ml Udcup] 20 gm PO DAILY 30 Days #1000 ml Cephalexin Monohydrate [Keflex 250 mg Capsule] 250 mg PO QID #24 cap Methylprednisolone [Methylpred Dp] 4 mg PO ASDIR #1 tab.ds.pk Potassium Chloride 20 meq PO DAILY #14 tablet.er Pantoprazole Sodium [Protonix [address] Tablet] 40 mg PO DAILY #14 tablet.dr Home Medications: Amlodipine Besylate [Norvasc 10 mg Tablet] 10 mg PO DAILY 09/17/19 Atenolol 100 mg PO DAILY 09/17/19 Albuterol Sulfate [Albuterol Sulfate Hfa] 2 puff IH Q4HP PRN 11/05/19 Propranolol HCl [Inderal 10 mg Tablet] 10 mg PO QHS 11/05/19 Sertraline HCl [Zoloft 50 mg Tablet] 50 mg PO QHS 11/05/19 Cephalexin Monohydrate [Keflex 250 mg Capsule] 250 mg PO QID #24 cap 11/20/19 Lactulose [Cephulac Syrup 20 gm/30 ml Udcup] 20 gm PO DAILY 30 Days #1000 ml 11/20/19 Methylprednisolone [Methylpred Dp] 4 mg PO ASDIR #1 tab.ds.pk 11/20/19 Pantoprazole Sodium [Protonix [address] Tablet] 40 mg PO DAILY #14 tablet.dr 11/20/19 Potassium Chloride 20 meq PO DAILY #14 tablet.er 11/20/19 Sucralfate [Carafate 1 gm Tablet] 1 gm PO ACHS #60 tablet 11/20/19 History of Present Illiness History of Present Illness: DON REYNAGA is a 49 year old male with a past medical history of polysubstance abuse, alcohol dependence and alcohol withdrawal DTs. He presents from [facility] for alcohol withdrawal manifesting and hypertension, tachycardia, tremor and hallucinations. In the emergency department he is found to have delirium labs reveal hyponatremia, hypokalemia, hypocalcemia h ypomagnesemia, prolonged QT interval and acute renal failure. He receives IV calcium, Ativan and referred to the hospitalist for admission. Patient is a poor historian unable provide additional history. Patient last admitted for alcohol withdrawal DTs September 17, 2019 Hospital Course Hospital Course: The patient had a difficult hospital course. After being admitted to the medical floor he began having severe agitation from alcohol withdrawal. Intermittent medications were ineffective. He was transferred to the ICU for intubation and continuous sedation. When he was through the withdrawal. He in fact was able to transferred back to [facility]. He was found to have methicillin sensitive staph aureus bacteremia which is pansensitive. He has hepatic steatosis with alcohol-related hepatitis and his transaminases and bilirubin are still elevated but appear to be stable and are beginning to improve. He is on a short course of steroids for the inflammation. He is back on his antihypertensive medications with reasonable blood pressure control. He is working with physical therapy but is still weak and will benefit from home health. Physical Exam Vital Signs: Temp Pulse Resp BP Pulse Ox 98.4 F 116 H 16 136/73 H 96 11/20/19 08:07 11/20/19 08:07 11/20/19 08:07 11/20/19 08:07 11/20/19 08:07 Intake & Output 11/19/19 11/20/19 11/21/19 06:59 06:59 06:59 Intake Total 2783 1736 Output Total 2350 2550 Balance 433 -814 Weight 113.3 kg 110.8 kg General appearance: PRESENT: no acute distress, well-developed Eye exam: PRESENT: scleral icterus Respiratory exam: PRESENT: rales - Faint at bases, symmetrical, unlabored. ABSENT: prolonged expiratory phas, rhonchi, tachypnea, wheezes Cardiovascular exam: PRESENT: RRR, +S1, +S2. ABSENT: diastolic murmur, systolic murmur GI/Abdominal exam: PRESENT: distended, normal bowel sounds, soft. ABSENT: mass, tenderness Rectal exam: ABSENT: deferred Gentrourinary exam: ABSENT: indwelling catheter Extremities exam: PRESENT: +1 edema Musculoskeletal exam: PRESENT: ambulatory, normal inspection. ABSENT: deformity Neurological exam: PRESENT: alert, awake, oriented to person, oriented to place, oriented to time, oriented to situation, CN II-XII grossly intact Psychiatric exam: PRESENT: appropriate affect. ABSENT: agitated, anxious, unusual affect Focused psych exam: ABSENT: delusional, paranoid, restlessness Skin exam: PRESENT: jaundice Results Laboratory Results: WBC 10.9 10^3/uL (4.0-10.5) H 11/20/19 04:37 RBC 3.14 10^6/uL (4.35-5.55) L 11/20/19 04:37 Hgb 10.9 g/dL (13.5-17.0) L 11/20/19 04:37 Hct 31.6 % (37.9-51.0) L 11/20/19 04:37 MCV 101 fl (80-97) H 11/20/19 04:37 MCH 34.6 pg (27.0-33.4) H 11/20/19 04:37 MCHC 34.4 g/dL (32.0-36.0) 11/20/19 04:37 RDW 18.0 % (11.5-14.0) H 11/20/19 04:37 Plt Count 298 10^3/uL (150-450) 11/20/19 04:37 Lymph % (Auto) Not Reportable 11/20/19 04:37 [place] % (Auto) Not Reportable 11/20/19 04:37 Eos % (Auto) Not Reportable 11/20/19 04:37 Baso % (Auto) Not Reportable 11/20/19 04:37 Absolute Neuts (auto) Not Reportable 11/20/19 04:37 Absolute Lymphs (auto) Not Reportable 11/20/19 04:37 Absolute Monos (auto) Not Reportable 11/20/19 04:37 Absolute Eos (auto) Not Reportable 11/20/19 04:37 Absolute Basos (auto) Not Reportable 11/20/19 04:37 Total Counted 100 11/20/19 04:37 Seg Neutrophils % Not Reportable 11/20/19 04:37 Seg Neuts % (Manual) 80 % (42-78) H 11/20/19 04:37 Band Neutrophils % 1 % (3-5) L 11/20/19 04:37 Lymphocytes % (Manual) 12 % (13-45) L 11/20/19 04:37 Atypical Lymphs % 2 % (0) 11/14/19 03:49 Monocytes % (Manual) 7 % (3-13) 11/20/19 04:37 Eosinophils % (Manual) 0 % (0-6) 11/20/19 04:37 Basophils % (Manual) 0 % (0-2) 11/20/19 04:37 Metamyelocytes % 1 % (0-1) 11/15/19 03:49 Abs Neuts (Manual) 8.8 10^3/uL (1.7-8.2) H 11/20/19 04:37 Abs Lymphs (Manual) 1.3 10^3/uL (0.5-4.7) 03/04/20 04:37 Abs Monocytes (Manual) 0.8 10^3/uL (0.1-1.4) 11/20/19 04:37 Absolute Eos (Manual) 0.0 10^3/uL (0.0-0.6) 11/20/19 04:37 Abs Basophils (Manual) 0.0 10^3/uL (0.0-0.2) 11/20/19 04:37 Nucleated RBCs 1 /100 WBC (0) 11/08/19 00:48 Toxic Granulation SLIGHT 11/20/19 04:37 Toxic Vacuolation PRESENT 11/20/19 04:37 Dohle Bodies PRESENT 11/11/19 09:23 Clumped Platelets PRESENT 11/08/19 05:35 Large Platelets PRESENT 11/08/19 05:35 Platelet Comment ADEQUATE 11/20/19 04:37 Polychromasia SLIGHT 11/20/19 04:37 Poikilocytosis SLIGHT 11/20/19 04:37 Basophilic Stippling PRESENT 11/18/19 04:20 Anisocytosis 1+ 11/20/19 04:37 Macrocytosis 1+ 11/20/19 04:37 Target Cells SLIGHT 11/18/19 04:20 Tear Drop Cells SLIGHT 11/13/19 04:38 Ovalocytes SLIGHT 11/20/19 04:37 Stomatocytes SLIGHT 11/15/19 06:31 Schistocytes SLIGHT 11/20/19 04:37 PT 14.0 SEC (11.4-15.4) 11/11/19 09:23 INR 1.08 11/11/19 09:23 Sodium 138.4 mmol/L (137-145) 11/20/19 04:37 Potassium 3.4 mmol/L (3.6-5.0) L 11/20/19 04:37 Chloride 103 mmol/L (98-107) 11/20/19 04:37 Carbon Dioxide 26 mmol/L (22-30) 11/20/19 04:37 Anion Gap 9 (5-19) 11/20/19 04:37 BUN 6 mg/dL (7-20) L 11/20/19 04:37 Creatinine 0.54 mg/dL (0.52-1.25) 11/20/19 04:37 Est GFR ( Amer) > 60 (>60) 11/20/19 04:37 Est GFR (Non-Af Amer) Cancelled 11/08/19 05:35 Est GFR (MDRD) Non-Af > 60 (>60) 11/20/19 04:37 Glucose 99 mg/dL (75-110) 11/20/19 04:37 POC Glucose 103 mg/dL (70-110) 11/08/19 01:20 Calcium 8.2 mg/dL (8.4-10.2) L 11/20/19 04:37 Ionized Calcium Rhonda 1.14 mmol/L (1.14-1.30) 11/17/19 07:40 Phosphorus 1.4 mg/dL (2.5-4.5) L 11/17/19 07:40 Magnesium 2.1 mg/dL (1.6-2.3) 11/20/19 04:37 Total Bilirubin 19.7 mg/dL (0.2-1.3) H 11/20/19 04:37 Direct Bilirubin 17.7 mg/dL (0.0-0.4) H 11/20/19 04:37 Neonat Total Bilirubin Not Reportable 11/20/19 04:37 Neonat Direct Bilirubin Not Reportable 11/20/19 04:37 Neonat Indirect Bili Not Reportable 11/20/19 04:37 AST 328 U/L (17-59) H 11/20/19 04:37 ALT 157 U/L (<50) H 11/20/19 04:37 Alkaline Phosphatase 287 U/L (38-126) H 11/20/19 04:37 Ammonia 12.7 umol/L (9-33) 11/20/19 04:37 Creatine Kinase 429 U/L (55-170) H 11/05/19 02:30 CK-MB (CK-2) 3.32 ng/mL (<4.55) 11/05/19 02:30 Troponin I 0.039 ng/mL 11/05/19 02:30 Total Protein 6.7 g/dL (6.3-8.2) 11/20/19 04:37 Albumin 3.0 g/dL (3.5-5.0) L 11/20/19 04:37 Lipase 612.5 U/L (23-300) H 02/18/20 02:30 EGFR Cancelled 11/08/19 05:35 Urine Color PHILOMENA 11/08/19 00:20 Urine Appearance CLEAR 11/08/19 00:20 Urine pH 7.0 (5.0-9.0) 11/08/19 00:20 Ur Specific [place] 1.013 11/08/19 00:20 Urine Protein 30 mg/dL (NEGATIVE) H 11/08/19 00:20 Urine Glucose (UA) NEGATIVE mg/dL (NEGATIVE) 11/08/19 00:20 Urine Ketones 20 mg/dL (NEGATIVE) H 11/08/19 00:20 Urine Blood SMALL (NEGATIVE) H 11/08/19 00:20 Urine Nitrite NEGATIVE (NEGATIVE) 11/08/19 00:20 Urine Bilirubin SMALL (NEGATIVE) H 11/08/19 00:20 Urine Urobilinogen 4.0 mg/dL (<2.0) H 11/08/19 00:20 Ur Leukocyte Esterase NEGATIVE (NEGATIVE) 11/08/19 00:20 Urine WBC (Auto) 2 /HPF 11/08/19 00:20 Urine RBC (Auto) 35 /HPF 11/08/19 00:20 U Hyaline Cast (Auto) 24 /LPF 11/05/19 04:15 Urine Bacteria (Auto) TRACE /HPF 11/08/19 00:20 Squamous Epi Cells Auto <1 /HPF 11/08/19 00:20 Urine Mucus (Auto) RARE /LPF 11/08/19 00:20 Urine Ascorbic Acid NEGATIVE (NEGATIVE) 11/08/19 00:20 Stool Occult Blood POSITIVE (NEGATIVE) 11/13/19 04:30 Salicylates < 1.0 mg/dL (2.0-20.0) L 11/05/19 02:30 Urine Opiates Screen NEGATIVE 11/05/19 04:15 Urine Methadone Screen NEGATIVE 11/05/19 04:15 Acetaminophen < 10 ug/mL (10-30) L 11/05/19 02:30 Ur Barbiturates Screen NEGATIVE 11/05/19 04:15 Ur Phencyclidine Scrn NEGATIVE 11/05/19 04:15 Ur Amphetamines Screen NEGATIVE 11/05/19 04:15 U Benzodiazepines Scrn UNCONFIRMED POSITIVE 11/05/19 04:15 Urine Cocaine Screen NEGATIVE 11/05/19 04:15 U Marijuana (THC) Screen NEGATIVE 11/05/19 04:15 Serum Alcohol < 10 mg/dL (NONE DETECTED) 11/05/19 02:30 Hepatitis A IgM Ab Negative (Negative) 11/11/19 09:23 Hep Bs Antigen Negative (Negative) 11/11/19 09:23 Hep B Core IgM Ab Negative (Negative) 11/11/19 09:23 Hepatitis C Antibody <0.1 s/co ratio (0.0-0.9) 11/11/19 09:23 11/05/19 02:30 CK-MB (CK-2) 3.32 Troponin I 0.039 Impressions: KUB X-Ray 11/10/19 05:17 IMPRESSION: A nasogastric tube tip is seen overlying the right upper abdomen, likely at the duodenum or pylorus. Abdomen/Pelvis CT 11/17/19 09:00 IMPRESSION: 1. Enlarged steatotic liver. There is no ascites. 2. Nonspecific ground-glass opacities in the nondependent portions of the upper lobes - correlation with clinical findings to exclude an infectious or inflammatory process. 3. The high attenuation within the gallbladder lumen could represent sludge. Plan Health Concerns: I had a long talk with the patient regarding his alcoholism. There is a strong family history of alcoholism. He needs to understand that if he does not stop drinking his liver will surely go to cirrhosis with end-stage liver failure. Plan of Treatment: Complete antibiotic therapy for staph aureus bacteremia. Short course of prednisone therapy for the hepatitis. Return to antihypertensive medications. Goals: Alcohol cessation with rehab Time Spent: Greater than 30 Minutes Stroke Is this a Stroke Patient?: No Acute Heart Failure - Is this a Heart Failure Patient?: No
[2019-11-20] MEDS: METHYLPREDNISOLONE INJ 40 MG/1 ML SDV IV SCH (09:29)
[2019-11-20] MEDS: THIAMINE HCL 100 MG TABLET PO SCH (09:29)
[2019-11-20] MEDS: LACTULOSE SYRUP 20 GM/30 ML UDCUP PO SCH (09:29)
[2019-11-20] MEDS: CEFTRIAXONE 1 GM/D5W RTU 1 GM/50 ML RTUPB IV SCH (09:34)
[2019-11-20 09:43] VITALS: BP 110/71
--- NOTE | 2019-11-20 11:53 | XCELERA REPORT ---
[address] [address] Transthoracic Echocardiogram Report Name: DON REYNAGA Age: 49 yrs Gender: Male : 1970 Patient Status: Inpatient Patient Location: [address] [place] [address] Study Date: 11/18/2019 09:27 AM Height: 69 in Weight: 260 lb BSA: 2.3 m2 Procedure: A two-dimensional transthoracic echocardiogram with color flow and Doppler was performed. Study Quality: Technically suboptimal. The study was technically difficult with many images being suboptimal in quality. Reason For Study: MSSA bacteremia, fever unknown source History: MSSA bacteremia, / Endocarditis. Ordering Physician: AYE MONTEMAYOR Performed By: Brooke Hurtado Interpretation Summary Not a good study to assess for Valvular vegetations / Endocarditis. But no gross vegetations seen.Recommend JANE if clinical suspicion for endocarditis is high. Study Quality: Technically suboptimal. The study was technically difficult with many images being suboptimal in quality. The left ventricle is normal in size. Probably no [employer]WAY [employer]IVER.Normal LVEF of 65%.Probably no regional wall motion abnormality. The right ventricle is not well visualized secondary to technical limitations The left atrial size is normal. Cannot assess ASD ,VSd or PFO There is no evidence of mitral valve prolapse. There is no mitral valve stenosis. There is no mitral regurgitation noted. There is no aortic valvular vegetation. There is no aortic valve stenosis No aortic regurgitation is present. There is no tricuspid stenosis. There is a trace amount of tricuspid regurgitation Tricuspid regurgitation jet envelope not well defined to measure RV systolic pressure accurately. The pulmonic valve is not well visualized. There is no pulmonic valvular stenosis. There is a trace amount of pulmonic regurgitation The aortic root is not well visualized. There is no pericardial effusion. Not a good study to assess for Valvular vegetations / Endocarditis. But no gross vegetations seen.Recommend JANE if clinical suspicion for endocarditis is high. MMode/2D Measurements & Calculations RVDd: 2.8 cm LVIDd: 4.9 cm FS: 35.3 % Ao root diam: 2.8 cm IVSd: 1.1 cm LVIDs: 3.2 cm EDV(Teich): 112.1 ml Ao root area: 6.1 cm2 LVPWd: 1.0 cm ESV(Teich): 39.8 ml LA dimension: 3.6 cm EF(Teich): 64.4 % Doppler Measurements & Calculations MV E max tabitha: MV P1/2t max tabitha: Ao V2 max: LV V1 max P.1 cm/sec 85.5 cm/sec 179.0 cm/sec 10.3 mmHg MV A max tabitha: MV P1/2t: 43.7 msec Ao max PG: LV V1 max: 91.3 cm/sec MVA(P1/2t): 5.0 cm2 12.8 mmHg 160.4 cm/sec MV E/A: 1.2 MV dec slope: 573.8 cm/sec2 PA V2 max: PI end-d tabitha: MV P1/2t-pr_phl: 121.4 cm/sec 102.8 cm/sec 43.7 msec PA max P.9 mmHg Left Ventricle The left ventricle is normal in size. Probably no [employer]WAY [employer]IVER.Normal LVEF of 65%.Probably no regional wall motion abnormality. Right Ventricle The right ventricle is not well visualized secondary to technical limitations. Atria The left atrial size is normal. Cannot assess ASD ,VSd or PFO. Mitral Valve There is no evidence of mitral valve prolapse. There is no mitral valve stenosis. There is no mitral regurgitation noted. Aortic Valve There is no aortic valvular vegetation. There is no aortic valve stenosis. No aortic regurgitation is present. Tricuspid Valve There is no tricuspid stenosis. There is a trace amount of tricuspid regurgitation. Tricuspid regurgitation jet envelope not well defined to measure RV systolic pressure accurately. Pulmonic Valve The pulmonic valve is not well visualized. There is no pulmonic valvular stenosis. There is a trace amount of pulmonic regurgitation. Great Vessels The aortic root is not well visualized. The inferior vena cava was not well visualized. Effusions There is no pericardial effusion. : AYE MONTEMAYOR Lakshmi
== END 2019-11-20 11:06 | disposition home health service (06) | DRG 897 ==
LOC: ER 01:01 → EH 05:10 → 3S 06:18 → ICU 11-08 10:25 → 3W 11-17 15:26
PROVIDERS: ADMIT Internal Medicine; ATTEND Anesthesiology
PROC: 5A09557 Assistance with Respiratory Ventilation, Greater than 96 Consecutive Hours, Continuous Positive Airway Pressure (ICD-10-PCS; principal; 2019-11-05)
DX: F10.231 Alcohol dependence with withdrawal delirium (principal); N17.9 Acute kidney failure, unspecified; E87.1 Hypo-osmolality and hyponatremia; R78.81 Bacteremia; E72.4 Disorders of ornithine metabolism; K92.1 Melena; K70.10 Alcoholic hepatitis without ascites; E87.6 Hypokalemia; E83.42 Hypomagnesemia; E83.51 Hypocalcemia; D69.6 Thrombocytopenia, unspecified; Z78.1 Physical restraint status; E83.39 Other disorders of phosphorus metabolism; F17.200 Nicotine dependence, unspecified, uncomplicated; R94.31 Abnormal electrocardiogram [ECG] [EKG]; I10 Essential (primary) hypertension; J44.9 Chronic obstructive pulmonary disease, unspecified; Z88.8 Allergy status to other drugs, medicaments and biological substances; B95.61 Methicillin susceptible Staphylococcus aureus infection as the cause of diseases classified elsewhere; R74.0 Nonspecific elevation of levels of transaminase and lactic acid dehydrogenase [LDH]; K76.0 Fatty (change of) liver, not elsewhere classified; Z71.41 Alcohol abuse counseling and surveillance of alcoholic
CPT/HCPCS: 36415; 74018; 74176; 76705; 80048; 80053; 80074; 80076; 80307; 81001; 82140; 82272; 82330; 82550; 82553; 82962; 83690; 83735; 84100; 84132; 84484; 85025; 85610; 87040; 87077; 87150; 87186; 93005; 93010; 93306; 94640; 94660; 96361; 96365; 96368; 96375; 96376; 99231; 99291; J0610; J0696; J1644; J1720; J2060; J2405; J2920; J3230; J3360; J3411; J3475; J3480; J3486; J3490; J7030; J7040; J7050; J7060; J7120; J7121; J7620; S0028; S0032

== ENCOUNTER 2019-12-05 17:03 | Inpatient (IN) | payer OTHER ==
--- NOTE | 2019-12-05 17:13 | ER Document Report ---
ED Medical Screen (RME) - General Chief Complaint: ETOH Abuse Stated Complaint: POSSIBLE WITHDRAWLS ETOH Time Seen by Provider: 12/05/19 17:09 Primary Care Provider: ROXANNE GRAY MD [Primary Care Provider] - Follow up as needed Mode of Arrival: Wheelchair Information source: Patient Notes: 49-year-old male presents to ED for complaint of alcohol withdrawal he states he drank a pint of bourbon between morning and lunchtime. States he has not had any alcohol since lunchtime. He is alert oriented and answering questions appropriately. His pulse is 130 his O2 sat is 100% blood pressure was elevated. He is drinking a bottle of water at this time. I have greeted and performed a rapid initial assessment of this patient. A comprehensive ED assessment and evaluation of the patient, analysis of test results and completion of medical decision making process will be conducted by an additional ED providers. TRAVEL OUTSIDE OF THE [place] IN LAST 30 DAYS: No - Related Data Allergies/Adverse Reactions: lisinopril Adverse Reaction (Verified 09/17/19 17:53) Past Medical History - General Information source: Patient - Social History Cigarette use (# per day): Yes - Pack per day Frequency of alcohol use: Heavy - States he has been drinking a pint a day Drug Abuse: None - Past Medical History Cardiac Medical History: Reports: Hx Hypertension Pulmonary Medical History: Reports: Hx COPD Neurological Medical History: Reports: Hx Seizures Psychiatric Medical History: Reports: Hx Depression Physical Exam - Vital signs Vitals: Temp Pulse Resp BP Pulse Ox 98.2 F 128 H 20 133/72 H 100 12/05/19 17:07 12/05/19 17:07 12/05/19 17:07 12/05/19 17:07 12/05/19 17:07 Course - Vital Signs Vital signs: Temp Pulse Resp BP Pulse Ox 98.2 F 128 H 20 133/72 H 100 12/05/19 17:07 12/05/19 17:07 12/05/19 17:07 12/05/19 17:07 12/05/19 17:07 Doctor's Discharge - Discharge Referrals: ROXANNE GRAY MD [Primary Care Provider] - Follow up as needed
[2019-12-05] MEDS ORDERED: NORMAL SALINE 1000 ML 1,000 ML IV ONE ×2 (17:14→21:15)
[2019-12-05 17:42] LABS: APPEARANCE,URINE SLIGHTLY-CLOUDY; BILIRUBIN,URINE MODERATE (NEGATIVE); COLOR,URINE AMBER; GLUCOSE, URINE NEGATIVE (NEGATIVE); KETONES,URINE NEGATIVE (NEGATIVE); PROTEIN,URINE 30 mg/dL (NEGATIVE); URINE SPECIFIC GRAVITY 1.017
[2019-12-05] MEDS ORDERED: NORMAL SALINE 1000 ML 1,000 ML with POTASSIUM CHLORIDE 20 MEQ, MAGNESIUM SULFATE 8 MEQ,... IV SCH ×5 (18:00)
[2019-12-05 18:04] LABS: URINE AMPHETAMINES SCREEN NEGATIVE; URINE BARBITURATES SCREEN NEGATIVE; URINE COCAINE SCREEN NEGATIVE; URINE MARIJUANA (THC) SCREEN NEGATIVE; URINE METHADONE SCREEN NEGATIVE; URINE PHENCYCLIDINE SCREEN NEGATIVE
[2019-12-05 18:17] LABS: URINE BENZODIAZEPINES SCREEN UNCONFIRMED POSITIVE
--- NOTE | 2019-12-05 18:23 | ER Document Report ---
ED General - General Chief Complaint: ETOH Abuse Stated Complaint: POSSIBLE WITHDRAWLS ETOH Time Seen by Provider: 12/05/19 17:09 Primary Care Provider: ROXANNE GRAY MD [Primary Care Provider] - Follow up as needed Mode of Arrival: Wheelchair Information source: Patient, Relative TRAVEL OUTSIDE OF THE [place] IN LAST 30 DAYS: No - HPI Onset: Other - patient has been drinking for years and has felt bad over the last 12-24 hours. Onset/Duration: Gradual Quality of pain: Achy Severity: Moderate Pain Level: 1 Associated symptoms: Diarrhea, Nausea Exacerbated by: Denies Relieved by: Denies Similar symptoms previously: Yes - with alcohol abuse and withdrawal Recently seen / treated by doctor: Yes - patient was in the ICU here at [place] Notes: 49 year old male with a history of Alcoholism (patient drinks a pint to a 1/5th of alcohol a day), HTN, and GERD who was just admitted to the ICU for alcohol withdrawal (patient was discharged earlier in the month) here for concern of alcohol withdrawal. The patient says he feels sick to his stomach and he feels his heart is racing. The patient says he drank a pint of alcohol today. - Related Data Allergies/Adverse Reactions: lisinopril Adverse Reaction (Verified 09/17/19 17:53) Past Medical History - General Information source: Patient - Social History Smoking Status: Current Every Day Smoker Cigarette use (# per day): Yes - Pack per day Frequency of alcohol use: Heavy - States he has been drinking a pint to a 1/5th a day Drug Abuse: None Lives with: Alone Family History: Reviewed & Not Pertinent Patient has suicidal ideation: No Patient has homicidal ideation: No - Past Medical History Cardiac Medical History: Reports: Hx Hypertension Pulmonary Medical History: Reports: Hx COPD Neurological Medical History: Reports: Hx Seizures Psychiatric Medical History: Reports: Hx Depression Review of Systems - Review of Systems Constitutional: Weakness, Other - weakness EENT: No symptoms reported Cardiovascular: Heart racing Respiratory: No symptoms reported Gastrointestinal: Nausea Genitourinary: No symptoms reported Male Genitourinary: No symptoms reported Musculoskeletal: No symptoms reported Skin: Other - jaundiced Hematologic/Lymphatic: No symptoms reported Neurological/Psychological: No symptoms reported -: Yes All other systems reviewed and negative Physical Exam - Vital signs Vitals: Temp Pulse Resp BP Pulse Ox 98.2 F 128 H 20 133/72 H 100 12/05/19 17:07 12/05/19 17:07 12/05/19 17:07 12/05/19 17:07 12/05/19 17:07 - Notes Notes: GENERAL: Patient is jaundiced, Obese, not well appearing, in mild acute distress. HEAD: Atraumatic, normocephalic. EYES: Pupils equal round and reactive to light, extraocular movements intact, sclera icterus present, conjunctiva are normal. ENT: Nares patent, oropharynx clear without exudates. Moist mucous membranes. NECK: Normal range of motion, supple without lymphadenopathy or JVD. LUNGS: Breath sounds clear to auscultation bilaterally and equal. No wheezes rales or rhonchi. HEART: Tachycardic, normal rhythm without murmurs, rubs or gallops. ABDOMEN: Soft, nontender, normoactive bowel sounds. No guarding, no rebound. No masses appreciated. EXTREMITIES: Normal range of motion, no pitting or edema. No clubbing or cyanosis. NEUROLOGICAL: Cranial nerves II through XII grossly intact. Normal speech, normal gait. PSYCH: Normal mood, normal affect. SKIN: Warm, Dry, normal turgor, no rashes or lesions noted. Course - Re-evaluation Re-evalutation: 12/05/19 21:27 The patient is high risk for serious alcohol withdrawal. Patient was tachycardic in the ER and he had some hypotensive events as well. Patient was bacteremic on his last admission earlier in the month. Patient had blood cultures obtained in the ER, fluids, banana bag, and ativan given prior to admission and patient felt better after treatment. - Vital Signs Vital signs: Temp Pulse Resp BP Pulse Ox 98.0 F 111 H 20 98/59 L 91 L 12/05/19 20:41 12/05/19 20:41 12/05/19 17:07 12/05/19 20:41 12/05/19 20:41 - Laboratory Result Diagrams: 12/05/19 18:08 12/05/19 18:08 Laboratory results interpreted by me: 12/05/19 12/05/19 12/05/19 17:18 18:08 18:08 WBC 14.4 H RBC 2.79 L Hgb 10.0 L Hct 28.6 L MCV 102 H MCH 35.7 H RDW 17.2 H Seg Neuts % (Manual) 81 H Band Neutrophils % 2 L Abs Neuts (Manual) 12.0 H APTT Sodium 135.4 L Potassium 3.0 L* Chloride 97 L Calcium 7.7 L Total Bilirubin 18.0 H Direct Bilirubin 16.1 H AST 204 H ALT 66 H Alkaline Phosphatase 321 H Albumin 2.7 L Lipase 385.6 H Urine Protein 30 H Urine Bilirubin MODERATE H Urine Urobilinogen 4.0 H 12/05/19 18:56 WBC RBC Hgb Hct MCV MCH RDW Seg Neuts % (Manual) Band Neutrophils % Abs Neuts (Manual) APTT 40.6 H Sodium Potassium Chloride Calcium Total Bilirubin Direct Bilirubin AST ALT Alkaline Phosphatase Albumin Lipase Urine Protein Urine Bilirubin Urine Urobilinogen - Diagnostic Test Radiology reviewed: Image reviewed, Reports reviewed Discharge - Discharge Clinical Impression: Alcohol abuse Liver failure Qualifiers: Liver failure chronicity: chronic Hepatic coma status: without hepatic coma Qualified Code(s): K72.10 - Chronic hepatic failure without coma Condition: Stable Disposition: ADMITTED INPATIENT Admitting Provider: Osmar (Hospitalist) Unit Admitted: IMCU Referrals: ROXANNE GRAY MD [Primary Care Provider] - Follow up as needed
[2019-12-05] MEDS ORDERED: ONDANSETRON HCL INJ/PF 4 MG/2 ML SDV IV ONE (18:25)
[2019-12-05 18:33] LABS: HEMATOCRIT 28.6 % (37.9-51.0); MEAN CORPUSCULAR HEMOGLOBIN 35.7 pg (27.0-33.4); MEAN CORPUSCULAR HGB CONC 34.9 g/dL (32.0-36.0); MEAN CORPUSCULAR VOLUME 102 fl (80-97); PLATELET COUNT 193 10^3/uL (150-450); RED BLOOD COUNT 2.79 10^6/uL (4.35-5.55); RED CELL DISTRIBUTION WIDTH 17.2 % (11.5-14.0); WHITE BLOOD COUNT 14.4 10^3/uL (4.0-10.5)
[2019-12-05 18:38] LABS: ALBUMIN 2.7 g/dL (3.5-5.0); ALCOHOL 191 mg/dL (NONE DETECTED); ALKALINE PHOSPHATASE 321 U/L (38-126); ANION GAP 13 (5-19); ASPARTATE AMINO TRANSFERASE 204 U/L (17-59); BILIRUBIN,DIRECT 16.1 mg/dL (0.0-0.4); BLOOD UREA NITROGEN 7 mg/dL (7-20); CALCIUM 7.7 mg/dL (8.4-10.2); CARBON DIOXIDE 25 mmol/L (22-30); CHLORIDE 97 mmol/L (98-107); GLUCOSE 91 mg/dL (75-110); TOTAL PROTEIN 6.3 g/dL (6.3-8.2)
[2019-12-05] MEDS ORDERED: POTASSIUM CHLORIDE 20 MEQ PACKET PO ONE (18:41)
[2019-12-05 18:43] LABS: ABSOLUTE LYMPHOCYTES# (MANUAL) 1.9 10^3/uL (0.5-4.7); ABSOLUTE MONOCYTES # (MANUAL) 0.6 10^3/uL (0.1-1.4); BAND NEUTROPHILS % (MANUAL) 2 % (3-5); BASOPHILS % (MANUAL) 0 % (0-2); EOSINOPHILS % (MANUAL) 0 % (0-6); LYMPHOCYTES % (MANUAL) 13 % (13-45); MONOCYTES % (MANUAL) 4 % (3-13); SEGMENTED NEUTROPHILS % (MAN) 81 % (42-78); TOTAL CELLS COUNTED 100
[2019-12-05 18:45] LABS: POLYCHROMASIA SLIGHT; TOXIC VACUOLATION PRESENT
[2019-12-05 18:46] LABS: ANISOCYTOSIS 1+; PLATELET COMMENT ADEQUATE; POIKILOCYTOSIS SLIGHT
[2019-12-05 18:47] LABS: TARGET CELLS 1+; TEAR DROP CELLS SLIGHT
[2019-12-05] MEDS ORDERED: LORAZEPAM INJ 2 MG/1 ML VIAL IV ONE (21:15)
--- NOTE | 2019-12-05 21:34 | RADIOLOGY REPORT (SQ) ---
EXAM DESCRIPTION: XR CHEST 1 VIEW COMPLETED DATE/TME: 12/05/2019 18:31 CLINICAL HISTORY: 49 years, Male, eval for pneumonia COMPARISON: Prior CT dated 11/18/2019. NUMBER OF VIEWS: One TECHNIQUE: Single frontal view of the chest was obtained portably LIMITATIONS: None. FINDINGS: Cardiac and mediastinal contours are stable. There is elevation of the right hemidiaphragm with suspected small right pleural effusion/right basilar opacity. Left lung is overall clear. No pneumothorax. IMPRESSION: Significantly elevated right hemidiaphragm with suspected small right pleural effusion/right basilar opacity. Consider superimposed atelectasis or pneumonia to include aspiration. copyright 2010 [employer] [facility]- All Rights Reserved
[2019-12-05] MEDS ORDERED: MAG HYDROX/AL HYDROX/SIMETH SUSP 30 ML UDCUP PO PRN (22:00)
[2019-12-05] MEDS ORDERED: POTASSI CL 20 MEQ/D5NS 1L 20 MEQ/1,000 ML RTUINJ IV PRN (22:00)
[2019-12-05] MEDS ORDERED: CHLORPROMAZINE HCL INJ 25 MG/1 ML AMPULE IV PRN (22:07)
[2019-12-05] MEDS ORDERED: DIAZEPAM INJ 10 MG/2 ML DISP.SYRIN IV PRN (22:07)
[2019-12-06] MEDS: HEPARIN SOD (PORCINE) 5,000 UNIT/ML 1 ML VIAL SUBCUT SCH ×4 (00:26→21:38)
[2019-12-06] MEDS: FAMOTIDINE 20 MG TABLET PO SCH ×3 (00:28→21:38)
[2019-12-06] MEDS: DIAZEPAM 5 MG TABLET PO SCH ×6 (00:37→21:38)
[2019-12-06 05:51] LABS: HEMATOCRIT 23.7 % (37.9-51.0); HEMOGLOBIN 8.2 g/dL (13.5-17.0); MEAN CORPUSCULAR HEMOGLOBIN 36.2 pg (27.0-33.4); MEAN CORPUSCULAR HGB CONC 34.7 g/dL (32.0-36.0); MEAN CORPUSCULAR VOLUME 104 fl (80-97); PLATELET COUNT 179 10^3/uL (150-450); RED BLOOD COUNT 2.28 10^6/uL (4.35-5.55); RED CELL DISTRIBUTION WIDTH 17.8 % (11.5-14.0); WHITE BLOOD COUNT 10.8 10^3/uL (4.0-10.5)
[2019-12-06 06:00] LABS: ALBUMIN 2.3 g/dL (3.5-5.0); ALKALINE PHOSPHATASE 274 U/L (38-126); ANION GAP 15 (5-19); ASPARTATE AMINO TRANSFERASE 185 U/L (17-59); BILIRUBIN,DIRECT 15.2 mg/dL (0.0-0.4); BILIRUBIN,TOTAL 16.7 mg/dL (0.2-1.3); BLOOD UREA NITROGEN 6 mg/dL (7-20); CALCIUM 7.1 mg/dL (8.4-10.2); CARBON DIOXIDE 20 mmol/L (22-30); CHLORIDE 100 mmol/L (98-107); GLUCOSE 85 mg/dL (75-110); TOTAL PROTEIN 5.8 g/dL (6.3-8.2)
[2019-12-06 06:08] LABS: POTASSIUM 2.8 mmol/L (3.6-5.0)
[2019-12-06] MEDS ORDERED: DEXTROSE 5%-NORMAL SALINE 1,000 ML with POTASSIUM CHLORIDE 40 MEQ IV PRN ×2 (07:00)
--- NOTE | 2019-12-06 07:14 | PDOC H&P ---
History of Present Illness Admission Date/PCP: 12/05/2019 21:28 ROXANNE GRAY MD Patient complains of: Alcohol withdrawal History of Present Illness: DON REYNAGA is a 49 year old male who presented to the emergency room with acute alcohol withdrawal symptoms. He admits a multi-decade history of chronic alcoholism with alcoholic cirrhosis and further admits to drinking a pint of bourbon after waking up this morning. He finished his bourbon at about noon today and has not had any alcohol intake since. Since that time he has been experiencing progressively worsening malaise, ague, nausea and diarrhea. He admits to numerous prior similar episodes related to alcohol withdrawal. He denies other associated or accompanying signs and symptoms. He has not identified any additional aggravating or ameliorating factors for his alcohol withdrawal symptoms. In the emergency room he was found to have a blood alcohol of 197 and was also noted to have a bilirubin of 18. He was tachycardic and mildly hypotensive initially but improved with IV fluids. He was also noted to be hypokalemic. He was subsequently admitted to the hospital for further evaluation and acute detoxification treatment. Past Medical History Cardiac Medical History: Reports: Hypertension Denies: Atrial Fibrillation, Congestive Heart Failure, Coronary Artery Di sease, DVT, Myocardial Infarction, Hyperlipidema, Pulmonary Embolism Pulmonary Medical History: Reports: Chronic Obstructive Pulmonary Disease (COPD), Respiratory Failure Denies: Asthma EENT Medical History: Denies: Cataracts, Ears - Hearing aids Neurological Medical History: Reports: Seizures Denies: Hemorrhagic CVA, Ischemic CVA Endocrine Medical History: Reports: Obesity Denies: Diabetes Mellitus Type 1, Diabetes Mellitus Type 2, Hyperthyroidism, Hypothyroidism Renal/ Medical History: Denies: Chronic Kidney Disease, Nephrolithiasis Malignancy Medical History: Reports: None GI Medical History: Reports: Cirrhosis - Chronic alcoholic cirrhosis, Gastroesophageal Reflux Disease Denies: Crohn's Disease, Hepatitis, Ulcerative Colitis Musculoskeltal Medical History: Denies: Arthritis, Gout Skin Medical History: Denies: Eczema, Psoriasis Psychiatric Medical History: Reports: Alcohol Dependency, Depression, Substance Abuse, Tobacco Dependency Traumatic Medical History: Reports: None Hematology: Reports: Anemia - Chronic, Bleeding Tendencies - Excessive bleeding when injury Infectious Medical History: Reports: None Past Surgical History Past Surgical History: Reports: None Social History Information Source: Patient Lives with: Parents Smoking Status: Current Every Day Smoker Electronic Cigarette use?: No Frequency of Alcohol Use: Heavy - 16 to 24 ounces of liquor daily Hx Recreational Drug Use: Yes Drugs: Cocaine, Marijuana, Hallucinogen Hx Prescription Drug Abuse: No - Advance Directive Resuscitation Status: Full Code Surrogate healthcare decision maker:: Suresh Reynaga Family History Family History: CAD, Hypertension. denies: DM, Malignancy Parental Family History Reviewed: Yes Children Family History Reviewed: No Sibling(s) Family History Reviewed.: Yes Medication/Allergy Home Medications: Amlodipine Besylate [Norvasc 10 mg Tablet] 10 mg PO DAILY 09/17/19 Atenolol 100 mg PO DAILY 09/17/19 Albuterol Sulfate [Albuterol Sulfate Hfa] 2 puff IH Q4HP PRN 11/05/19 Propranolol HCl [Inderal 10 mg Tablet] 10 mg PO QHS 11/05/19 Sertraline HCl [Zoloft 50 mg Tablet] 50 mg PO QHS 11/05/19 Cephalexin Monohydrate [Keflex 250 mg Capsule] 250 mg PO QID #24 cap 11/20/19 Lactulose [Cephulac Syrup 20 gm/30 ml Udcup] 20 gm PO DAILY 30 Days #1000 ml 11/20/19 Methylprednisolone [Methylpred Dp] 4 mg PO ASDIR #1 tab.ds.pk 11/20/19 Pantoprazole Sodium [Protonix [address] Tablet] 40 mg PO DAILY #14 tablet.dr 11/20/19 Potassium Chloride 20 meq PO DAILY #14 tablet.er 11/20/19 Sucralfate [Carafate 1 gm Tablet] 1 gm PO ACHS #60 tablet 11/20/19 Allergies/Adverse Reactions: lisinopril Adverse Reaction (Verified 09/17/19 17:53) Review of Systems Constitutional: PRESENT: as per HPI, other - Malaise and ague. ABSENT: chills, fever(s) Eyes: ABSENT: visual disturbances, other - Eye pain Ears: ABSENT: hearing changes, other - Ear pain Nose, Mouth, and Throat: ABSENT: headache(s), sore throat Cardiovascular: ABSENT: chest pain, palpitations Respiratory: ABSENT: cough, dyspnea Gastrointestinal: PRESENT: as per HPI, diarrhea, nausea. ABSENT: abdominal pain, constipation, vomiting Genitourinary: PRESENT: other - Dark-colored urine. ABSENT: dysuria, hematuria Musculoskeletal: ABSENT: back pain, joint swelling Integumentary: ABSENT: pruritus, rash Neurological: ABSENT: confusion, convulsions, focal weakness, memory loss, syncope Psychiatric: ABSENT: anxiety, depression Endocrine: ABSENT: cold intolerance, heat intolerance, polydipsia, polyphagia, polyuria Hematologic/Lymphatic: PRESENT: easy bleeding, easy bruising Allergic/Immunologic: ABSENT: seasonal rhinorrhea Physical Exam Vital Signs: Temp Pulse Resp BP Pulse Ox 98.0 F 111 H 20 98/59 L 91 L 12/05/19 20:41 12/05/19 20:41 12/05/19 17:07 12/05/19 20:41 12/05/19 20:41 Intake & Output 12/03/19 12/04/19 12/05/19 23:59 23:59 23:59 Intake Total 967 Balance 967 Weight 106.8 kg General appearance: PRESENT: no acute distress, cooperative, obese, other - Jaundiced Head exam: PRESENT: atraumatic, normocephalic Eye exam: PRESENT: scleral icterus. ABSENT: conjunctival injection Ear exam: PRESENT: normal external ear exam. ABSENT: bleeding, drainage Mouth exam: PRESENT: dry mucosa, neck supple Neck exam: ABSENT: thyromegaly, tracheal deviation Respiratory exam: PRESENT: decreased breath sounds - Mildly decreased breath sounds throughout all partida, prolonged expiratory phas - Mildly prolonged expiratory phase noted in all partida, symmetrical, unlabored, wheezes - Mild expiratory wheezes present in all partida Cardiovascular exam: PRESENT: RRR, tachycardia. ABSENT: clicks, gallop, rubs Pulses: PRESENT: normal radial pulses, normal dorsalis pedis pul Vascular exam: PRESENT: normal capillary refill. ABSENT: pallor GI/Abdominal exam: PRESENT: normal bowel sounds, soft. ABSENT: distended, tenderness Rectal exam: PRESENT: deferred Extremities exam: ABSENT: joint swelling, pedal edema Musculoskeletal exam: ABSENT: deformity, dislocation Neurological exam: PRESENT: alert, oriented to person, oriented to place, oriented to time, oriented to situation, CN II-XII grossly intact - Mild generalized tremor noted, other Psychiatric exam: PRESENT: anxious, normal mood Skin exam: PRESENT: dry, intact, jaundice, warm. ABSENT: rash, urticaria Results Laboratory Results: 12/05/19 18:08 12/05/19 18:08 12/05/19 12/05/19 12/05/19 17:18 18:08 18:08 WBC 14.4 H RBC 2.79 L Hgb 10.0 L Hct 28.6 L MCV 102 H MCH 35.7 H MCHC 34.9 RDW 17.2 H Plt Count 193 Seg Neutrophils % Not Reportable Sodium 135.4 L Potassium 3.0 L* Chloride 97 L Carbon Dioxide 25 Anion Gap 13 BUN 7 Creatinine 0.64 Est GFR ( Amer) > 60 Glucose 91 Calcium 7.7 L Magnesium Total Bilirubin 18.0 H AST 204 H Alkaline Phosphatase 321 H Total Protein 6.3 Albumin 2.7 L Lipase 385.6 H Urine Color [place] Urine Appearance SLIGHTLY-CLOUDY Urine pH 6.0 Ur Specific [place] 1.017 Urine Protein 30 H Urine Glucose (UA) NEGATIVE Urine Ketones NEGATIVE Urine Blood NEGATIVE Urine RBC (Auto) 0 12/05/19 18:08 WBC RBC Hgb Hct MCV MCH MCHC RDW Plt Count Seg Neutrophils % Sodium Potassium Chloride Carbon Dioxide Anion Gap BUN Creatinine Est GFR ( Amer) Glucose Calcium Magnesium 1.9 Total Bilirubin AST Alkaline Phosphatase Total Protein Albumin Lipase Urine Color Urine Appearance Urine pH Ur Specific [place] Urine Protein Urine Glucose (UA) Urine Ketones Urine Blood Urine RBC (Auto) Assessment and Plan - Diagnosis (1) Alcohol withdrawal Qualifiers: Complication of substance-induced condition: with delirium Qualified Code(s): F10.231 - Alcohol dependence with withdrawal delirium Is this a current diagnosis for this admission?: Yes (2) Hypokalemia Is this a current diagnosis for this admission?: Yes (3) Laennec's cirrhosis (alcoholic) Qualifiers: Ascites presence: without ascites Qualified Code(s): K70.30 - Alcoholic cirrhosis of liver without ascites Is this a current diagnosis for this admission?: Yes (4) Alcohol use disorder, severe, dependence Is this a current diagnosis for this admission?: Yes (5) Tobacco use disorder, severe, dependence Is this a current diagnosis for this admission?: Yes (6) Polysubstance abuse Is this a current diagnosis for this admission?: Yes - Plan Summary Summary: Patient will be admitted to the [facility] where he will receive routine supportive and symptomatic cares. He will receive IV fluids with supplemental potassium. He will receive Valium 5 mg p.o. every 4 hours and will also have Valium 10 mg IV every hour as needed severe tremor/agitation/anxiety. He will use Thorazine 25 mg IV every 8 hours as needed extreme agitation or hallucinations. He will be continued on his usual medications for his chronic medical problems as appropriate. CBCs, metabolic profiles and magnesium levels will be obtained as appropriate. A negotiator sales consultation will be obtained for appropriate diet management. - Time Time Spent with patient: 15-24 minutes Smoking Cessation Education: 3 to 10 minutes Medications reviewed and adjusted accordingly: Yes Anticipated discharge: Home - Inpatient Certification Based on my medical assessment, after consideration of the patient's comorbidities, presenting symptoms, or acuity I expect that the services needed warrant INPATIENT care.: Yes I certify that my determination is in accordance with my understanding of Medicare's requirements for reasonable and necessary INPATIENT services [42 CFR 412.3e].: Yes Medical Necessity: Significant Comorbidiites Make Outpatient Treatment Too Risky, Need Close Monitoring Due to Risk of Patient Decompensation, Need For Continuous Telemetry Monitoring, Need for Neurological Checks, Risk of Complication if Not Cared For in Hospital
[2019-12-06] MEDS: PROMETHAZINE HCL INJ 25 MG/1 ML VIAL IV PRN (08:06)
[2019-12-06] MEDS ORDERED: DOCUSATE SODIUM 100 MG CAPSULE PO SCH (10:00)
[2019-12-06] MEDS ORDERED: POTASSIUM CHLORIDE 10 MEQ TABLET.ER PO ONE ×2 (10:48→15:00)
[2019-12-06] MEDS ORDERED: HYDRALAZINE HCL INJ/PF 20 MG/1 ML SDV IV PRN (10:53)
[2019-12-06] MEDS ORDERED: METOPROLOL TARTRATE PF/INJ 5 MG/5 ML SDV IV PRN (10:53)
[2019-12-06] MEDS ORDERED: POTASSIUM CHLORIDE 10 MEQ TABLET.ER PO SCH (11:00)
[2019-12-06] MEDS: DEXTROSE 5%-NORMAL SALINE 1,000 ML IV PRN (11:00)
[2019-12-06] MEDS ORDERED: LACTULOSE SYRUP 20 GM/30 ML UDCUP PO SCH (11:00)
[2019-12-06] MEDS: FOLIC ACID 1 MG TABLET PO SCH (11:14)
--- NOTE | 2019-12-06 12:15 | PDOC PROGRESS REPORT ---
Subjective Progress Note for:: 12/06/19 Subjective:: DON REYNAGA is a 49 year old male who presented to the emergency room with acute alcohol withdrawal symptoms. He admits a multi-decade history of chronic alcoholism with alcoholic cirrhosis and further admits to drinking a pint of bourbon after waking up this morning. He finished his bourbon at about noon today and has not had any alcohol intake since. Since that time he has been experiencing progressively worsening malaise, ague, nausea and diarrhea. Geronimo e admits to numerous prior similar episodes related to alcohol withdrawal. He denies other associated or accompanying signs and symptoms. He has not identified any additional aggravating or ameliorating factors for his alcohol withdrawal symptoms. In the emergency room he was found to have a blood alcohol of 197 and was also noted to have a bilirubin of 18. He was tachycardic and mildly hypotensive initially but improved with IV fluids. He was also noted to be hypokalemic. He was subsequently admitted to the hospital for further evaluation and acute detoxification treatment. 12/06/2019. Saw patient this morning, sitting in bed enjoying his breakfast, no apparent distress, alert and oriented, complaining of mild anxiety, denies any fever, chills, nausea, vomiting, diarrhea. Reason For Visit: ACUTE ALCOHOL WITHDRAWAL Physical Exam Vital Signs: Temp Pulse Resp BP Pulse Ox 98.3 F 108 H 18 108/59 L 98 12/06/19 07:22 12/06/19 07:22 12/06/19 07:22 12/06/19 07:22 12/06/19 07:22 Intake & Output 12/05/19 12/06/19 12/07/19 06:59 06:59 06:59 Intake Total 2990 1000 Output Total 250 Balance 2740 1000 Weight 111.1 kg 111.1 kg General appearance: PRESENT: obese, other - Diffuse jaundice Head exam: PRESENT: atraumatic, normocephalic Respiratory exam: PRESENT: clear to auscultation katerina. ABSENT: rales, rhonchi, wheezes Cardiovascular exam: PRESENT: RRR. ABSENT: diastolic murmur, rubs, systolic murmur GI/Abdominal exam: PRESENT: distended, normal bowel sounds, soft. ABSENT: guarding, mass, organolmegaly, rebound, tenderness Neurological exam: PRESENT: alert, awake, oriented to person, oriented to place, CN II-XII grossly intact. ABSENT: motor sensory deficit Skin exam: PRESENT: jaundice Results Laboratory Results: 12/06/19 05:29 12/06/19 05:29 12/05/19 12/05/19 12/05/19 17:18 18:08 18:08 WBC 14.4 H RBC 2.79 L Hgb 10.0 L Hct 28.6 L MCV 102 H MCH 35.7 H MCHC 34.9 RDW 17.2 H Plt Count 193 Seg Neutrophils % Not Reportable Sodium 135.4 L Potassium 3.0 L* Chloride 97 L Carbon Dioxide 25 Anion Gap 13 BUN 7 Creatinine 0.64 Est GFR ( Amer) > 60 Glucose 91 Calcium 7.7 L Magnesium Total Bilirubin 18.0 H AST 204 H Alkaline Phosphatase 321 H Ammonia Total Protein 6.3 Albumin 2.7 L Lipase 385.6 H Urine Color [place] Urine Appearance SLIGHTLY-CLOUDY Urine pH 6.0 Ur Specific [place] 1.017 Urine Protein 30 H Urine Glucose (UA) NEGATIVE Urine Ketones NEGATIVE Urine Blood NEGATIVE Urine RBC (Auto) 0 12/05/19 12/06/19 12/06/19 18:08 05:29 05:29 WBC 10.8 H RBC 2.28 L Hgb 8.2 L Hct 23.7 L MCV 104 H MCH 36.2 H MCHC 34.7 RDW 17.8 H Plt Count 179 Seg Neutrophils % Sodium 135.1 L Potassium 2.8 L* Chloride 100 Carbon Dioxide 20 L Anion Gap 15 BUN 6 L Creatinine 0.50 L Est GFR ( Amer) > 60 Glucose 85 Calcium 7.1 L Magnesium 1.9 1.9 Total Bilirubin 16.7 H AST 185 H Alkaline Phosphatase 274 H Ammonia Total Protein 5.8 L Albumin 2.3 L Lipase Urine Color Urine Appearance Urine pH Ur Specific [place] Urine Protein Urine Glucose (UA) Urine Ketones Urine Blood Urine RBC (Auto) 12/06/19 05:29 WBC RBC Hgb Hct MCV MCH MCHC RDW Plt Count Seg Neutrophils % Sodium Potassium Chloride Carbon Dioxide Anion Gap BUN Creatinine Est GFR ( Amer) Glucose Calcium Magnesium Total Bilirubin AST Alkaline Phosphatase Ammonia 24.5 Total Protein Albumin Lipase Urine Color Urine Appearance Urine pH Ur Specific [place] Urine Protein Urine Glucose (UA) Urine Ketones Urine Blood Urine RBC (Auto) Impressions: Chest X-Ray 12/05/19 18:31 IMPRESSION: Significantly elevated right hemidiaphragm with suspected small right pleural effusion/right basilar opacity. Consider superimposed atelectasis or pneumonia to include aspiration. copyright 2010 [employer]- All Rights Reserved Assessment and Plan - Diagnosis (1) Alcohol intoxication Qualifiers: Complication of substance-induced condition: uncomplicated Qualified Code(s): F10.920 - Alcohol use, unspecified with intoxication, uncomplicated Is this a current diagnosis for this admission?: Yes Plan: Denies any visual or auditory hallucination. Complains of mild anxiety. Continue DT protocol. Implement fall, seizure and aspiration precautions. (2) Alcoholic cirrhosis Qualifiers: Ascites presence: unspecified Qualified Code(s): K70.30 - Alcoholic cirrho sis of liver without ascites Is this a current diagnosis for this admission?: Yes Plan: Severely jaundiced with elevated T bili, AST, ALT. Afebrile. WBC WNL. Denies any abdominal pain. Monitor volume status, monitor for bleeding, monitor for seizure. Continue Lasix, spironolactone and lactulose. Outpatient PCP and gastroenterology follow-up. (3) Alcoholic hepatitis Qualifiers: Ascites presence: without ascites Qualified Code(s): K70.10 - Alcoholic hepatitis without ascites Is this a current diagnosis for this admission?: Yes Plan: As above. (4) Tobacco use disorder, severe, dependence Is this a current diagnosis for this admission?: Yes Plan: Counseled on quitting. NicoDerm patch will be provided. (5) Hypokalemia Is this a current diagnosis for this admission?: Yes Plan: Likely due to low p.o. intake. No acute EKG changes. Continue supplemental potassium. Potassium level tomorrow. (6) Polysubstance abuse Is this a current diagnosis for this admission?: Yes Plan: UDS positive for benzodiazepines. Monitor for withdrawal. Monitor vitals. - Plan Summary Summary: Patient will be admitted to the [facility] where he will receive routine supportive and symptomatic cares. He will receive IV fluids with supplemental potassium. He will receive Valium 5 mg p.o. every 4 hours and will also have Valium 10 mg IV every hour as needed severe tremor/agitation/anxiety. He will use Thorazine 25 mg IV every 8 hours as needed extreme agitation or hallucinations. He will be continued on his usual medications for his chronic medical problems as appropriate. CBCs, metabolic profiles and magnesium levels will be obtained as appropriate. A pharmacist consultation will be obtained for appropriate diet management.
[2019-12-06] MEDS: LACTULOSE SYRUP 20 GM/30 ML UDCUP PO SCH ×2 (13:43→17:10)
[2019-12-07] MEDS: PROMETHAZINE HCL INJ 25 MG/1 ML VIAL IV PRN (01:30)
[2019-12-07] MEDS: DEXTROSE 5%-NORMAL SALINE 1,000 ML IV PRN (03:22)
[2019-12-07] MEDS: DIAZEPAM 5 MG TABLET PO SCH ×3 (05:16→21:30)
[2019-12-07] MEDS: HEPARIN SOD (PORCINE) 5,000 UNIT/ML 1 ML VIAL SUBCUT SCH ×3 (05:16→21:30)
[2019-12-07 06:05] LABS: MEAN CORPUSCULAR HGB CONC 34.7 g/dL (32.0-36.0); MEAN CORPUSCULAR VOLUME 104 fl (80-97); PLATELET COUNT 160 10^3/uL (150-450); RED BLOOD COUNT 2.21 10^6/uL (4.35-5.55); RED CELL DISTRIBUTION WIDTH 17.5 % (11.5-14.0); WHITE BLOOD COUNT 10.9 10^3/uL (4.0-10.5)
[2019-12-07 06:06] LABS: ANION GAP 7 (5-19); BLOOD UREA NITROGEN 4 mg/dL (7-20); CALCIUM 7.2 mg/dL (8.4-10.2); CARBON DIOXIDE 25 mmol/L (22-30); CHLORIDE 102 mmol/L (98-107); GLUCOSE 83 mg/dL (75-110)
[2019-12-07 06:09] LABS: POTASSIUM 2.8 mmol/L (3.6-5.0)
[2019-12-07] MEDS ORDERED: POTASSIUM CHLORIDE 20 MEQ/50 ML RTU IV SCH (06:30)
[2019-12-07] MEDS ORDERED: POTASSIUM CHLORIDE 10 MEQ TABLET.ER PO ONE (07:31)
[2019-12-07] MEDS ORDERED: DEXTROSE 5%-NORMAL SALINE 1,000 ML with POTASSIUM CHLORIDE 40 MEQ IV PRN ×2 (08:03)
[2019-12-07] MEDS: FAMOTIDINE 20 MG TABLET PO SCH ×2 (09:33→21:31)
[2019-12-07] MEDS: FOLIC ACID 1 MG TABLET PO SCH (09:33)
[2019-12-07] MEDS: LACTULOSE SYRUP 20 GM/30 ML UDCUP PO SCH ×3 (09:33→17:12)
--- NOTE | 2019-12-07 10:15 | PDOC PROGRESS REPORT ---
Subjective Progress Note for:: 12/07/19 Subjective:: DON REYNAGA is a 49 year old male who presented to the emergency room with acute alcohol withdrawal symptoms. He admits a multi-decade history of chronic alcoholism with alcoholic cirrhosis and further admits to drinking a pint of bourbon after waking up this morning. He finished his bourbon at about noon today and has not had any alcohol intake since. Since that time he has been experiencing progressively worsening malaise, ague, nausea and diarrhea. H e admits to numerous prior similar episodes related to alcohol withdrawal. He denies other associated or accompanying signs and symptoms. He has not identified any additional aggravating or ameliorating factors for his alcohol withdrawal symptoms. In the emergency room he was found to have a blood alcohol of 197 and was also noted to have a bilirubin of 18. He was tachycardic and mildly hypotensive initially but improved with IV fluids. He was also noted to be hypokalemic. He was subsequently admitted to the hospital for further evaluation and acute detoxification treatment. 12/06/2019. Saw patient this morning, sitting in bed enjoying his breakfast, no apparent distress, alert and oriented, complaining of mild anxiety, denies any fever, chills, nausea, vomiting, diarrhea. 12/07/2019. No acute events overnight. Resting in bed no apparent distress, denies any fever, chills, nausea, vomiting, diarrhea, constipation or any urinary symptoms. Denies any anxiety, visual or auditory hallucinations. Reason For Visit: ACUTE ALCOHOL WITHDRAWAL Physical Exam Vital Signs: Temp Pulse Resp BP Pulse Ox 98.3 F 104 H 18 131/67 H 99 12/07/19 08:16 12/07/19 08:16 12/07/19 08:16 12/07/19 08:16 12/07/19 08:16 Intake & Output 12/06/19 12/07/19 12/08/19 06:59 06:59 06:59 Intake Total 2990 4186 Output Total 250 925 Balance 2740 3261 Weight 111.1 kg 110.6 kg General appearance: PRESENT: no acute distress, obese, well-developed, well- nourished Head exam: PRESENT: atraumatic, normocephalic Respiratory exam: PRESENT: clear to auscultation katerina. ABSENT: rales, rhonchi, wheezes Cardiovascular exam: PRESENT: RRR. ABSENT: diastolic murmur, rubs, systolic murmur GI/Abdominal exam: PRESENT: normal bowel sounds, soft. ABSENT: distended, guarding, mass, organolmegaly, rebound, tenderness Neurological exam: PRESENT: alert, awake, oriented to person, oriented to place, oriented to time, oriented to situation, CN II-XII grossly intact. ABSENT: motor sensory deficit Results Laboratory Results: 12/07/19 05:14 12/07/19 05:14 12/06/19 12/06/19 12/06/19 13:45 17:52 17:52 WBC RBC Hgb Hct MCV MCH MCHC RDW Plt Count Sodium Potassium 3.0 L* 3.0 L* Chloride Carbon Dioxide Anion Gap BUN Creatinine Est GFR ( Amer) Glucose Calcium Magnesium Ammonia 36.7 H 12/07/19 12/07/19 12/07/19 05:14 05:14 05:14 WBC 10.9 H RBC 2.21 L Hgb 8.0 L Hct 23.0 L MCV 104 H MCH 36.0 H MCHC 34.7 RDW 17.5 H Plt Count 160 Sodium 133.7 L Potassium 2.8 L* Chloride 102 Carbon Dioxide 25 Anion Gap 7 BUN 4 L Creatinine 0.58 Est GFR ( Amer) > 60 Glucose 83 Calcium 7.2 L Magnesium 1.7 Ammonia Impressions: Chest X-Ray 12/05/19 18:31 IMPRESSION: Significantly elevated right hemidiaphragm with suspected small right pleural effusion/right basilar opacity. Consider superimposed atelectasis or pneumonia to include aspiration. copyright 2010 [employer] All Rights Reserved Assessment and Plan - Diagnosis (1) Hypokalemia Is this a current diagnosis for this admission?: Yes Plan: Likely due to low p.o. intake. No acute EKG changes. Continue supplemental potassium. Potassium level tomorrow. (2) Alcohol intoxication Qualifiers: Complication of substance-induced condition: uncomplicated Qualified Code(s): F10.920 - Alcohol use, unspecified with intoxication, uncomplicated Is this a current diagnosis for this admission?: Yes Plan: Denies any visual or auditory hallucination. Continue DT protocol. Implement fall, seizure and aspiration precautions. (3) Alcoholic cirrhosis Qualifiers: Ascites presence: unspecified Qualified Code(s): K70.30 - Alcoholic cirrhosis of liver without ascites Is this a current diagnosis for this admission?: Yes Plan: Severely jaundiced with elevated T bili, AST, ALT. Afebrile. WBC WNL. Denies any abdominal pain. Monitor volume status, monitor for bleeding, monitor for seizure. Continue Lasix, spironolactone and lactulose. Outpatient PCP and gastroenterology follow-up. (4) Alcoholic hepatitis Qualifiers: Ascites presence: without ascites Qualified Code(s): K70.10 - Alcoholic hepatitis without ascites Is this a current diagnosis for this admission?: Yes Plan: As above. (5) Tobacco use disorder, severe, dependence Is this a current diagnosis for this admission?: Yes Plan: Counseled on quitting. NicoDerm patch will be provided. (6) Polysubstance abuse Is this a current diagnosis for this admission?: Yes Plan: UDS positive for benzodiazepines. Monitor for withdrawal. Monitor vitals. - Plan Summary Summary: Patient will be admitted to the [facility] where he will receive routine supportive and symptomatic cares. He will receive IV fluids with supplemental potassium. He will receive Valium 5 mg p.o. every 4 hours and will also have Valium 10 mg IV every hour as needed severe tremor/agitation/anxiety. He will use Thorazine 25 mg IV every 8 hours as needed extreme agitation or hallucinations. He will be continued on his usual medications for his chronic medical problems as appropriate. CBCs, metabolic profiles and magnesium levels will be obtained as appropriate. A senior cost analyst consultation will be obtained for appropriate diet management.
[2019-12-07] MEDS: LORAZEPAM INJ 2 MG/1 ML VIAL IV PRN ×2 (11:32→22:37)
[2019-12-07] MEDS ORDERED: POTASSIUM CHLORIDE 10 MEQ TABLET.ER PO SCH (18:00)
[2019-12-07] MEDS: POTASSI CL 40 MEQ/D5-1/2NS 1L 1000 ML IV PRN ×2 (21:32→22:37)
[2019-12-08] MEDS: LORAZEPAM INJ 2 MG/1 ML VIAL IV PRN ×2 (02:28→17:46)
[2019-12-08] MEDS: DIAZEPAM 5 MG TABLET PO SCH ×3 (05:42→22:03)
[2019-12-08] MEDS: HEPARIN SOD (PORCINE) 5,000 UNIT/ML 1 ML VIAL SUBCUT SCH ×3 (05:43→21:59)
[2019-12-08 08:12] LABS: HEMATOCRIT 25.9 % (37.9-51.0); HEMOGLOBIN 8.7 g/dL (13.5-17.0); MEAN CORPUSCULAR HEMOGLOBIN 35.6 pg (27.0-33.4); MEAN CORPUSCULAR HGB CONC 33.5 g/dL (32.0-36.0); MEAN CORPUSCULAR VOLUME 106 fl (80-97); PLATELET COUNT 201 10^3/uL (150-450); RED BLOOD COUNT 2.44 10^6/uL (4.35-5.55); WHITE BLOOD COUNT 11.9 10^3/uL (4.0-10.5)
[2019-12-08 08:33] LABS: ALBUMIN 2.4 g/dL (3.5-5.0); ALKALINE PHOSPHATASE 287 U/L (38-126); ANION GAP 7 (5-19); ASPARTATE AMINO TRANSFERASE 157 U/L (17-59); BILIRUBIN,DIRECT 18.8 mg/dL (0.0-0.4); BLOOD UREA NITROGEN 3 mg/dL (7-20); CALCIUM 7.5 mg/dL (8.4-10.2); CARBON DIOXIDE 26 mmol/L (22-30); CHLORIDE 101 mmol/L (98-107); GLUCOSE 80 mg/dL (75-110); POTASSIUM 3.3 mmol/L (3.6-5.0); TOTAL PROTEIN 6.1 g/dL (6.3-8.2)
[2019-12-08 08:35] LABS: ABSOLUTE LYMPHOCYTES# (MANUAL) 1.8 10^3/uL (0.5-4.7); ABSOLUTE MONOCYTES # (MANUAL) 0.4 10^3/uL (0.1-1.4); BAND NEUTROPHILS % (MANUAL) 1 % (3-5); BASOPHILS % (MANUAL) 0 % (0-2); EOSINOPHILS % (MANUAL) 1 % (0-6); LYMPHOCYTES % (MANUAL) 15 % (13-45); MONOCYTES % (MANUAL) 3 % (3-13); SEGMENTED NEUTROPHILS % (MAN) 80 % (42-78); TOTAL CELLS COUNTED 100
[2019-12-08 08:37] LABS: ANISOCYTOSIS 2+; PLATELET COMMENT ADEQUATE; POLYCHROMASIA 1+; TOXIC VACUOLATION PRESENT
[2019-12-08] MEDS: FOLIC ACID 1 MG TABLET PO SCH (11:00)
[2019-12-08] MEDS: LACTULOSE SYRUP 20 GM/30 ML UDCUP PO SCH ×2 (11:00→14:51)
[2019-12-08] MEDS: FAMOTIDINE 20 MG TABLET PO SCH ×2 (11:00→22:03)
[2019-12-08] MEDS: POTASSIUM CHLORIDE 10 MEQ TABLET.ER PO SCH ×2 (11:00→17:53)
--- NOTE | 2019-12-08 11:52 | PDOC PROGRESS REPORT ---
Subjective Progress Note for:: 12/08/19 Subjective:: DON REYNAGA is a 49 year old male who presented to the emergency room with acute alcohol withdrawal symptoms. He admits a multi-decade history of chronic alcoholism with alcoholic cirrhosis and further admits to drinking a pint of bourbon after waking up this morning. He finished his bourbon at about noon today and has not had any alcohol intake since. Since that time he has been experiencing progressively worsening malaise, ague, nausea and diarrhea. H e admits to numerous prior similar episodes related to alcohol withdrawal. He denies other associated or accompanying signs and symptoms. He has not identified any additional aggravating or ameliorating factors for his alcohol withdrawal symptoms. In the emergency room he was found to have a blood alcohol of 197 and was also noted to have a bilirubin of 18. He was tachycardic and mildly hypotensive initially but improved with IV fluids. He was also noted to be hypokalemic. He was subsequently admitted to the hospital for further evaluation and acute detoxification treatment. 12/06/2019. Saw patient this morning, sitting in bed enjoying his breakfast, no apparent distress, alert and oriented, complaining of mild anxiety, denies any fever, chills, nausea, vomiting, diarrhea. 12/07/2019. No acute events overnight. Resting in bed no apparent distress, denies any fever, chills, nausea, vomiting, diarrhea, constipation or any urinary symptoms. Denies any anxiety, visual or auditory hallucinations. 12/08/2019. Overnight patient was reported to be anxious, received benzodiazepines, this morning patient comfortably resting in bed, no apparent distress, denies any auditory visual hallucination, endorsing low appetite, denies any fever, chills, nausea, vomiting, diarrhea, constipation or any urinary symptoms. Reason For Visit: ACUTE ALCOHOL WITHDRAWAL Physical Exam Vital Signs: Temp Pulse Resp BP Pulse Ox 97.9 F 101 H 16 101/52 L 95 12/08/19 08:07 12/08/19 08:07 12/08/19 08:07 12/08/19 08:07 12/08/19 08:07 Intake & Output 12/07/19 12/08/19 12/09/19 06:59 06:59 06:59 Intake Total 4186 1571 988 Output Total 925 700 Balance 3261 871 988 Weight 110.6 kg 110.3 kg General appearance: PRESENT: no acute distress, well-developed, well-nourished Head exam: PRESENT: atraumatic, normocephalic Respiratory exam: PRESENT: clear to auscultation katerina. ABSENT: rales, rhonchi, wheezes Cardiovascular exam: PRESENT: RRR. ABSENT: diastolic murmur, rubs, systolic murmur GI/Abdominal exam: PRESENT: normal bowel sounds, soft. ABSENT: distended, guarding, mass, organolmegaly, rebound, tenderness Extremities exam: PRESENT: +1 edema Neurological exam: PRESENT: alert, awake, oriented to person, oriented to place, oriented to time, oriented to situation, CN II-XII grossly intact. ABSENT: motor sensory deficit Results Laboratory Results: 12/08/19 07:25 12/08/19 07:25 12/07/19 12/08/19 12/08/19 15:41 07:25 07:25 WBC 11.9 H RBC 2.44 L Hgb 8.7 L Hct 25.9 L MCV 106 H MCH 35.6 H MCHC 33.5 RDW 18.0 H Plt Count 201 Seg Neutrophils % Not Reportable Sodium 133.7 L Potassium 3.0 L* 3.3 L Chloride 101 Carbon Dioxide 26 Anion Gap 7 BUN 3 L Creatinine 0.62 Est GFR ( Amer) > 60 Glucose 80 Calcium 7.5 L Magnesium 1.7 1.7 Total Bilirubin 21.0 H AST 157 H Alkaline Phosphatase 287 H Total Protein 6.1 L Albumin 2.4 L Impressions: Chest X-Ray 12/05/19 18:31 IMPRESSION: Significantly elevated right hemidiaphragm with suspected small right pleural effusion/right basilar opacity. Consider superimposed atelectasis or pneumonia to include aspiration. copyright 2010 [employer]- All Rights Reserved Assessment and Plan - Diagnosis (1) Hypokalemia Is this a current diagnosis for this admission?: Yes Plan: Likely due to low p.o. intake. No acute EKG changes. Continue supplemental potassium. Potassium level tomorrow. (2) Alcohol intoxication Qualifiers: Complication of substance-induced condition: uncomplicated Qualified Code(s): F10.920 - Alcohol use, unspecified with intoxication, uncomplicated Is this a current diagnosis for this admission?: Yes Plan: Denies any visual or auditory hallucination. Continue DT protocol. Implement fall, seizure and aspiration precautions. (3) Alcoholic cirrhosis Qualifiers: Ascites presence: unspecified Qualified Code(s): K70.30 - Alcoholic cirrhosis of liver without ascites Is this a current diagnosis for this admission?: Yes Plan: Severely jaundiced with elevated T bili, AST, ALT. Afebrile. WBC WNL. Denies any abdominal pain. Monitor volume status, monitor for bleeding, monitor for seizure. Continue Lasix, spironolactone and lactulose. Outpatient PCP and gastroenterology follow-up. (4) Alcoholic hepatitis Qualifiers: Ascites presence: without ascites Qualified Code(s): K70.10 - Alcoholic hepatitis without ascites Is this a current diagnosis for this admission?: Yes Plan: As above. (5) Tobacco use disorder, severe, dependence Is this a current diagnosis for this admission?: Yes Plan: Counseled on quitting. NicoDerm patch will be provided. (6) Polysubstance abuse Is this a current diagnosis for this admission?: Yes Plan: UDS positive for benzodiazepines. Monitor for withdrawal. Monitor vitals. - Plan Summary Summary: Patient will be admitted to the [facility] where he will receive routine supportive and symptomatic cares. He will receive IV fluids with supplemental potassium. He will receive Valium 5 mg p.o. every 4 hours and will also have Valium 10 mg IV every hour as needed severe tremor/agitation/anxiety. He will use Thorazine 25 mg IV every 8 hours as needed extreme agitation or hallucinations. He will be continued on his usual medications for his chronic medical problems as appropriate. CBCs, metabolic profiles and magnesium levels will be obtained as appropriate. A acid bath mixer consultation will be obtained for appropriate diet management.
[2019-12-08] MEDS: LEVALBUTEROL HCL NEB 0.63 MG/3 ML AMPUL NEB PRN ×2 (12:22→20:01)
[2019-12-08] MEDS: SPIRONOLACTONE 25 MG TABLET PO SCH (12:44)
[2019-12-08] MEDS: FUROSEMIDE INJ/PF 20 MG/2 ML SDV IV SCH (17:48)
[2019-12-08] MEDS ORDERED: RIFAXIMIN 550 MG TABLET ONE (17:58)
[2019-12-08] MEDS: RIFAXIMIN 550 MG TABLET PO SCH (18:01)
[2019-12-09] MEDS: LORAZEPAM INJ 2 MG/1 ML VIAL IV PRN (01:36)
[2019-12-09] MEDS: HEPARIN SOD (PORCINE) 5,000 UNIT/ML 1 ML VIAL SUBCUT SCH ×3 (05:05→22:05)
[2019-12-09] MEDS: FUROSEMIDE INJ/PF 20 MG/2 ML SDV IV SCH (05:07)
[2019-12-09] MEDS: DIAZEPAM 5 MG TABLET PO SCH (05:09)
[2019-12-09 05:55] LABS: HEMATOCRIT 25.7 % (37.9-51.0); HEMOGLOBIN 8.6 g/dL (13.5-17.0); MEAN CORPUSCULAR HGB CONC 33.6 g/dL (32.0-36.0); MEAN CORPUSCULAR VOLUME 107 fl (80-97); PLATELET COUNT 220 10^3/uL (150-450); RED CELL DISTRIBUTION WIDTH 18.7 % (11.5-14.0); WHITE BLOOD COUNT 11.5 10^3/uL (4.0-10.5)
[2019-12-09 06:10] LABS: INTERNATIONAL RATION (INR) 1.44; PROTHROMBIN TIME 17.7 SEC (11.4-15.4)
[2019-12-09 06:23] LABS: ALBUMIN 2.3 g/dL (3.5-5.0); ALKALINE PHOSPHATASE 279 U/L (38-126); ANION GAP 9 (5-19); ASPARTATE AMINO TRANSFERASE 136 U/L (17-59); BILIRUBIN,DIRECT 18.3 mg/dL (0.0-0.4); BILIRUBIN,TOTAL 20.5 mg/dL (0.2-1.3); BLOOD UREA NITROGEN 5 mg/dL (7-20); CALCIUM 7.5 mg/dL (8.4-10.2); CARBON DIOXIDE 23 mmol/L (22-30); CHLORIDE 102 mmol/L (98-107); GLUCOSE 81 mg/dL (75-110); POTASSIUM 3.1 mmol/L (3.6-5.0); TOTAL PROTEIN 5.9 g/dL (6.3-8.2)
[2019-12-09] MEDS: RIFAXIMIN 550 MG TABLET PO SCH (09:46)
[2019-12-09] MEDS: FOLIC ACID 1 MG TABLET PO SCH (09:58)
[2019-12-09] MEDS: SPIRONOLACTONE 25 MG TABLET PO SCH (09:59)
[2019-12-09] MEDS: POTASSIUM CHLORIDE 10 MEQ TABLET.ER PO SCH ×2 (09:59→17:00)
[2019-12-09] MEDS: FAMOTIDINE 20 MG TABLET PO SCH ×2 (10:00→22:04)
[2019-12-09] MEDS ORDERED: LORAZEPAM INJ 2 MG/1 ML VIAL IV PRN (11:05)
--- NOTE | 2019-12-09 11:34 | PDOC PROGRESS REPORT ---
Subjective Progress Note for:: 12/09/19 Subjective:: Patient asked if he would be going home today. At this time he denies any abdominal pain. He denies any anxiety, shortness of breath nausea or vomiting. Denies any confusion as well. Reason For Visit: ACUTE ALCOHOL WITHDRAWAL Physical Exam Vital Signs: Temp Pulse Resp BP Pulse Ox 99.1 F 107 H 12 102/54 L 94 12/09/19 07:29 12/09/19 09:19 12/09/19 09:19 12/09/19 07:29 12/09/19 09:19 Intake & Output 12/08/19 12/09/19 12/10/19 06:59 06:59 06:59 Intake Total 1571 2238 Output Total 700 1250 Balance 871 988 Weight 110.3 kg 110.7 kg General appearance: PRESENT: no acute distress, cooperative Neck exam: ABSENT: JVD Respiratory exam: PRESENT: clear to auscultation katerina, unlabored. ABSENT: tachypnea, wheezes Cardiovascular exam: PRESENT: RRR, +S1, +S2. ABSENT: tachycardia GI/Abdominal exam: PRESENT: distended, organolmegaly, soft. ABSENT: ascites, rebound, rigid, tenderness Extremities exam: PRESENT: pedal edema Neurological exam: PRESENT: alert, awake, oriented to person, oriented to place, oriented to time, oriented to situation Psychiatric exam: ABSENT: agitated, anxious Skin exam: PRESENT: jaundice Results Laboratory Results: 12/09/19 05:12 12/09/19 05:12 12/09/19 12/09/19 05:12 05:12 WBC 11.5 H RBC 2.40 L Hgb 8.6 L Hct 25.7 L MCV 107 H MCH 36.0 H MCHC 33.6 RDW 18.7 H Plt Count 220 Sodium 134.1 L Potassium 3.1 L Chloride 102 Carbon Dioxide 23 Anion Gap 9 BUN 5 L Creatinine 0.65 Est GFR ( Amer) > 60 Glucose 81 Calcium 7.5 L Total Bilirubin 20.5 H AST 136 H Alkaline Phosphatase 279 H Total Protein 5.9 L Albumin 2.3 L Impressions: Chest X-Ray 12/05/19 18:31 IMPRESSION: Significantly elevated right hemidiaphragm with suspected small right pleural effusion/right basilar opacity. Consider superimposed atelectasis or pneumonia to include aspiration. copyright 2010 [employer]- All Rights Reserved Assessment and Plan - Diagnosis (1) Alcoholic hepatitis Qualifiers: Ascites presence: unspecified Qualified Code(s): K70.10 - Alcoholic hepatit is without ascites Is this a current diagnosis for this admission?: Yes Plan: Elevated transaminases with mild downtrend, hyperbilirubinemia Maddrey discrimination factor score of 31 --> prednisolone not indicated at this time Continue to monitor liver enzymes Hepatitis panel 1 month ago was negative and abdominal ultrasound last month showed no evidence of biliary tract obstruction Continue supportive conservative treatment Mild to moderate malnutrition noted-dietitian consulted. Nutritional support. Patient encouraged of the significance of alcohol abstinence (2) Alcohol use disorder, severe, dependence Is this a current diagnosis for this admission?: Yes Plan: Patient presented with alcohol intoxication. Has not experienced any thorough withdrawal at this time but has required ICU on prior visits for delirium tremens. Currently on Valium and as needed Ativan as prophylaxis against withdrawal. I will start to wean patient off of the benzodiazepines. We will wean diazepam today. Continue monitoring CIWA. (3) Hypokalemia Is this a current diagnosis for this admission?: Yes Plan: Replete potassium chloride supplements. Monitor BMP. 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 MELD-Na score of 25 indicating 15% 3-month mortality if cirrhotic but patient is clearly not a liver transplant candidate at this time due to his very recent polysubstance and alcohol abuse. I will discontinue patient's rifamixin and continue lactulose given that he is not currently encephalopathic. 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 Not much ascites. Will maintain on spironolactone 25 mg daily. Will change Lasix from IV to p.o. 20 mg daily. 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 (5) Polysubstance abuse Is this a current diagnosis for this admission?: Yes Plan: UDS positive for benzodiazepines. Monitor for withdrawal. Monitor vitals. (6) Tobacco use disorder, severe, dependence Is this a current diagnosis for this admission?: Yes Plan: Counseled on quitting. NicoDerm patch will be provided. - Time Time Spent with patient: Less than 15 minutes
[2019-12-09] MEDS: NICOTINE 14 MG/24 HR PATCH.TD24 TD PRN (16:58)
[2019-12-10] MEDS: HEPARIN SOD (PORCINE) 5,000 UNIT/ML 1 ML VIAL SUBCUT SCH ×3 (05:12→21:37)
[2019-12-10 06:52] LABS: ALBUMIN 2.5 g/dL (3.5-5.0); ALKALINE PHOSPHATASE 298 U/L (38-126); ANION GAP 12 (5-19); ASPARTATE AMINO TRANSFERASE 134 U/L (17-59); BILIRUBIN,DIRECT 21.8 mg/dL (0.0-0.4); BILIRUBIN,TOTAL 23.8 mg/dL (0.2-1.3); BLOOD UREA NITROGEN 8 mg/dL (7-20); CALCIUM 7.7 mg/dL (8.4-10.2); CARBON DIOXIDE 22 mmol/L (22-30); CHLORIDE 98 mmol/L (98-107); GLUCOSE 78 mg/dL (75-110); TOTAL PROTEIN 6.6 g/dL (6.3-8.2)
[2019-12-10] MEDS: LEVALBUTEROL HCL NEB 0.63 MG/3 ML AMPUL NEB PRN (09:45)
[2019-12-10] MEDS ORDERED: FUROSEMIDE 20 MG TABLET PO SCH ×2 (10:00)
[2019-12-10] MEDS ORDERED: DIAZEPAM 5 MG TABLET PO SCH (10:00)
[2019-12-10] MEDS: POTASSI CL 20 MEQ/50 ML RIDER 20 MEQ/50 ML RTUPB IV SCH ×2 (10:44→12:54)
[2019-12-10] MEDS: POTASSIUM CHLORIDE 10 MEQ TABLET.ER PO SCH ×3 (10:45→17:09)
[2019-12-10] MEDS: LACTULOSE SYRUP 20 GM/30 ML UDCUP PO SCH (10:45)
[2019-12-10] MEDS: FAMOTIDINE 20 MG TABLET PO SCH (10:49)
[2019-12-10] MEDS: SPIRONOLACTONE 25 MG TABLET PO SCH ×2 (10:49→21:38)
[2019-12-10] MEDS: FOLIC ACID 1 MG TABLET PO SCH (10:50)
[2019-12-10 16:32] LABS: ANION GAP 10 (5-19); BLOOD UREA NITROGEN 7 mg/dL (7-20); CALCIUM 7.6 mg/dL (8.4-10.2); CARBON DIOXIDE 23 mmol/L (22-30); CHLORIDE 100 mmol/L (98-107); GLUCOSE 88 mg/dL (75-110)
--- NOTE | 2019-12-10 17:50 | PDOC DISCHARGE SUMMARY ---
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 Is this a current diagnosis for this admission?: Yes (5) Polysubstance abuse Is this a current diagnosis for this admission?: Yes (6) Tobacco use disorder, severe, dependence Is this a current diagnosis for this admission?: Yes - Additional Information Resuscitation Status: Full Code Discharge Diet: As Tolerated Discharge Activity: Activity As Tolerated Referrals: ROXANNE GRAY MD [Primary Care Provider] - 12/17/19 10:00 am YESSICA DYKES MD [ACTIVE STAFF] - 12/19/19 1:45 pm Prescriptions: Spironolactone [Aldactone 25 mg Tablet] 25 mg PO Q12 #60 tablet Folic Acid [Folvite 1 mg Tablet] 1 mg PO DAILY #30 tablet Home Medications: Lactulose [Cephulac Syrup 20 gm/30 ml Udcup] 20 gm PO DAILY 30 Days #1000 ml 11/20/19 Pantoprazole Sodium [Protonix [address] Tablet] 40 mg PO DAILY #14 tablet.dr 11/20/19 Sucralfate [Carafate 1 gm Tablet] 1 gm PO ACHS #60 tablet 11/20/19 Albuterol Sulfate [Proventil Hfa] 6.7 gm IH Q4HP PRN 12/06/19 Folic Acid [Folvite 1 mg Tablet] 1 mg PO DAILY #30 tablet 12/10/19 Potassium Chloride 40 meq PO BID #20 tablet.er 12/10/19 Spironolactone [Aldactone 25 mg Tablet] 25 mg PO Q12 #60 tablet 12/10/19 History of Present Illiness History of Present Illness: DON REYNAGA is a 49 year old male who presented to the emergency room with acute alcohol withdrawal symptoms. He admits a multi-decade history of chronic alcoholism with alcoholic cirrhosis and further admits to drinking a pint of bourbon after waking up this morning. He finished his bourbon at about noon today and has not had any alcohol intake since. Since that time he has been experiencing progressively worsening malaise, ague, nausea and diarrhea. He admits to numerous prior similar episodes related to alcohol withdrawal. He denies other associated or accompanying signs and symptoms. He has not identified any additional aggravating or ameliorating factors for his alcohol withdrawal symptoms. In the emergency room he was found to have a blood alcohol of 197 and was also noted to have a bilirubin of 18. He was tachycardic and mildly hypotensive initially but improved with IV fluids. He was also noted to be hypokalemic. He was subsequently admitted to the hospital for further evaluation and acute detoxification treatment. Hospital Course Hospital Course: (1) Alcoholic hepatitis Qualifiers: Ascites presence: unspecified Qualified Code(s): K70.10 - Alcoholic hepatitis without ascites Is this a current diagnosis for this admission?: Yes Plan: Elevated transaminases, hyperbilirubinemia Maddrey discrimination factor score of 31 --> prednisolone not indicated at this time Liver enzymes eventually started to trend down mildly Viral hepatitis panel 1 month ago was negative and abdominal ultrasound last month showed no evidence of biliary tract obstruction Treated with supportive conservative management Mild to moderate malnutrition noted-dietitian consulted. Nutritional support. Patient encouraged of the significance of alcohol abstinence (2) Alcohol use disorder, severe, dependence Is this a current diagnosis for this admission?: Yes Plan: Patient presented with alcohol intoxication. Patient was placed on Valium and Ativan as needed. Patient has been weaned off Valium and has not required any Ativan as his last CIWA scores have been 0. At this time he shows no evidence of withdrawal. He has been advised on the importance of abstaining from alcohol and substance abuse. (3) Hypokalemia Is this a current diagnosis for this admission?: Yes Plan: Discharged with potassium supplements. Possible etiologies include Lasix, rifamixin/Lactulose-->rifamixin d/cd. Lactulose at 20g daily now. No evidence of RTA. 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 MELD-Na score of 25 indicating 15% 3-month mortality if cirrhotic but patient is clearly not a liver transplant candidate at this time due to his very recent polysubstance and alcohol abuse. Lactulose, spironolactone. Unable to add Lasix due to hypokalemia. 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 Not much ascites. Scheduled to follow-up with Dr. Dykes for further care. (5) Polysubstance abuse Is this a current diagnosis for this admission?: Yes Plan: Advised against substance abuse. (6) Tobacco use disorder, severe, dependence Is this a current diagnosis for this admission?: Yes Plan: Counseled on quitting. Physical Exam Vital Signs: Temp Pulse Resp BP Pulse Ox 98.3 F 106 H 18 99/55 L 97 12/10/19 16:15 12/10/19 16:15 12/10/19 16:15 12/10/19 16:15 12/10/19 16:15 Intake & Output 12/09/19 12/10/19 12/11/19 06:59 06:59 06:59 Intake Total 2238 820 490 Output Total 1250 606 Balance 988 214 490 Weight 110.7 kg 109.5 kg General appearance: PRESENT: no acute distress, cooperative Respiratory exam: PRESENT: clear to auscultation katerina, unlabored. ABSENT: tachypnea, wheezes Cardiovascular exam: PRESENT: RRR, +S1, +S2. ABSENT: tachycardia GI/Abdominal exam: PRESENT: soft. ABSENT: rebound, rigid, tenderness Musculoskeletal exam: PRESENT: ambulatory Neurological exam: PRESENT: alert, awake, oriented to person, oriented to place, oriented to time Skin exam: PRESENT: jaundice Results Laboratory Results: WBC 11.5 10^3/uL (4.0-10.5) H 12/09/19 05:12 RBC 2.40 10^6/uL (4.35-5.55) L 12/09/19 05:12 Hgb 8.6 g/dL (13.5-17.0) L 12/09/19 05:12 Hct 25.7 % (37.9-51.0) L 12/09/19 05:12 MCV 107 fl (80-97) H 12/09/19 05:12 MCH 36.0 pg (27.0-33.4) H 12/09/19 05:12 MCHC 33.6 g/dL (32.0-36.0) 12/09/19 05:12 RDW 18.7 % (11.5-14.0) H 12/09/19 05:12 Plt Count 220 10^3/uL (150-450) 12/09/19 05:12 Lymph % (Auto) Not Reportable 12/08/19 07:25 [place] % (Auto) Not Reportable 12/08/19 07:25 Eos % (Auto) Not Reportable 12/08/19 07:25 Baso % (Auto) Not Reportable 12/08/19 07:25 Absolute Neuts (auto) Not Reportable 12/08/19 07:25 Absolute Lymphs (auto) Not Reportable 12/08/19 07:25 Absolute Monos (auto) Not Reportable 12/08/19 07:25 Absolute Eos (auto) Not Reportable 12/08/19 07:25 Absolute Basos (auto) Not Reportable 12/08/19 07:25 Total Counted 100 12/08/19 07:25 Seg Neutrophils % Not Reportable 12/08/19 07:25 Seg Neuts % (Manual) 80 % (42-78) H 12/08/19 07:25 Band Neutrophils % 1 % (3-5) L 12/08/19 07:25 Lymphocytes % (Manual) 15 % (13-45) 12/08/19 07:25 Monocytes % (Manual) 3 % (3-13) 12/08/19 07:25 Eosinophils % (Manual) 1 % (0-6) 12/08/19 07:25 Basophils % (Manual) 0 % (0-2) 12/08/19 07:25 Abs Neuts (Manual) 9.6 10^3/uL (1.7-8.2) H 12/08/19 07:25 Abs Lymphs (Manual) 1.8 10^3/uL (0.5-4.7) 12/08/19 07:25 Abs Monocytes (Manual) 0.4 10^3/uL (0.1-1.4) 12/08/19 07:25 Absolute Eos (Manual) 0.1 10^3/uL (0.0-0.6) 12/08/19 07:25 Abs Basophils (Manual) 0.0 10^3/uL (0.0-0.2) 12/08/19 07:25 Toxic Vacuolation PRESENT 12/08/19 07:25 Platelet Comment ADEQUATE 12/08/19 07:25 Polychromasia 1+ 12/08/19 07:25 Poikilocytosis SLIGHT 12/05/19 18:08 Anisocytosis 2+ 12/08/19 07:25 Macrocytosis 2+ 12/08/19 07:25 Target Cells 1+ 12/05/19 18:08 Tear Drop Cells SLIGHT 12/05/19 18:08 PT 17.7 SEC (11.4-15.4) H 12/09/19 05:12 INR 1.44 12/09/19 05:12 APTT 40.6 SEC (23.5-35.8) H 12/05/19 18:56 Sodium 132.8 mmol/L (137-145) L 12/10/19 15:50 Potassium 4.0 mmol/L (3.6-5.0) D 12/10/19 15:50 Chloride 100 mmol/L (98-107) 12/10/19 15:50 Carbon Dioxide 23 mmol/L (22-30) 12/10/19 15:50 Anion Gap 10 (5-19) 12/10/19 15:50 BUN 7 mg/dL (7-20) 12/10/19 15:50 Creatinine 0.86 mg/dL (0.52-1.25) 12/10/19 15:50 Est GFR ( Amer) > 60 (>60) 12/10/19 15:50 Est GFR (MDRD) Non-Af > 60 (>60) 12/10/19 15:50 Glucose 88 mg/dL (75-110) 12/10/19 15:50 Calcium 7.6 mg/dL (8.4-10.2) L 12/10/19 15:50 Magnesium 1.6 mg/dL (1.6-2.3) 12/10/19 06:05 Total Bilirubin 23.8 mg/dL (0.2-1.3) H 12/10/19 06:05 Direct Bilirubin 21.8 mg/dL (0.0-0.4) H 12/10/19 06:05 Neonat Total Bilirubin Not Reportable 12/10/19 06:05 Neonat Direct Bilirubin Not Reportable 12/10/19 06:05 Neonat Indirect Bili Not Reportable 12/10/19 06:05 AST 134 U/L (17-59) H 12/10/19 06:05 ALT 54 U/L (<50) H 12/10/19 06:05 Alkaline Phosphatase 298 U/L (38-126) H 12/10/19 06:05 Ammonia 36.7 umol/L (9-33) H 12/06/19 17:52 Total Protein 6.6 g/dL (6.3-8.2) 12/10/19 06:05 Albumin 2.5 g/dL (3.5-5.0) L 12/10/19 06:05 Lipase 385.6 U/L (23-300) H 12/05/19 18:08 Urine Color PHILOMENA 12/05/19 17:18 Urine Appearance SLIGHTLY-CLOUDY 12/05/19 17:18 Urine pH 6.0 (5.0-9.0) 12/05/19 17:18 Ur Specific [place] 1.017 12/05/19 17:18 Urine Protein 30 mg/dL (NEGATIVE) H 12/05/19 17:18 Urine Glucose (UA) NEGATIVE mg/dL (NEGATIVE) 12/05/19 17:18 Urine Ketones NEGATIVE mg/dL (NEGATIVE) 12/05/19 17:18 Urine Blood NEGATIVE (NEGATIVE) 12/05/19 17:18 Urine Nitrite (Reflex) NEGATIVE (NEGATIVE) 12/05/19 17:18 Urine Bilirubin MODERATE (NEGATIVE) H 12/05/19 17:18 Urine Urobilinogen 4.0 mg/dL (<2.0) H 12/05/19 17:18 Leukocyte Esterase Rfl NEGATIVE (NEGATIVE) 12/05/19 17:18 Urine RBC (Auto) 0 /HPF 12/05/19 17:18 U Hyaline Cast (Auto) 7 /LPF 12/05/19 17:18 Urine Bacteria (Auto) 2+ /HPF 12/05/19 17:18 Urine WBC (Reflex) 4 /HPF 12/05/19 17:18 Squamous Epi Cells Auto 1 /HPF 12/05/19 17:18 Urine Mucus (Auto) OCC /LPF 12/05/19 17:18 Urine Ascorbic Acid NEGATIVE (NEGATIVE) 12/05/19 17:18 Urine Opiates Screen NEGATIVE 12/05/19 17:18 Urine Methadone Screen NEGATIVE 12/05/19 17:18 Ur Barbiturates Screen NEGATIVE 12/05/19 17:18 Ur Phencyclidine Scrn NEGATIVE 12/05/19 17:18 Ur Amphetamines Screen NEGATIVE 12/05/19 17:18 U Benzodiazepines Scrn UNCONFIRMED POSITIVE 12/05/19 17:18 Urine Cocaine Screen NEGATIVE 12/05/19 17:18 U Marijuana (THC) Screen NEGATIVE 12/05/19 17:18 Serum Alcohol 191 mg/dL (NONE DETECTED) 12/05/19 18:08 Impressions: Chest X-Ray 12/05/19 18:31 IMPRESSION: Significantly elevated right hemidiaphragm with suspected small right pleural effusion/right basilar opacity. Consider superimposed atelectasis or pneumonia to include aspiration. copyright 2010 [employer] [facility] [employer]- All Rights Reserved Plan Time Spent: Greater than 30 Minutes Stroke Is this a Stroke Patient?: No Acute Heart Failure - Is this a Heart Failure Patient?: No
--- NOTE | 2019-12-10 18:15 | PDOC PROGRESS REPORT ---
Subjective Progress Note for:: 12/10/19 Subjective:: Patient feels well today. Abdominal pain is improved. However his liver enzymes keep going up. For this reason I have counseled patient was discharged and will try patient on prednisolone today. Reason For Visit: ACUTE ALCOHOL WITHDRAWAL Physical Exam Vital Signs: Temp Pulse Resp BP Pulse Ox 98.3 F 106 H 18 99/55 L 97 12/10/19 16:15 12/10/19 16:15 12/10/19 16:15 12/10/19 16:15 12/10/19 16:15 Intake & Output 12/09/19 12/10/19 12/11/19 06:59 06:59 06:59 Intake Total 2238 820 490 Output Total 1250 606 Balance 988 214 490 Weight 110.7 kg 109.5 kg General appearance: PRESENT: no acute distress, cooperative Neck exam: ABSENT: JVD Respiratory exam: PRESENT: clear to auscultation katerina, unlabored. ABSENT: tachypnea, wheezes Cardiovascular exam: PRESENT: RRR, +S1, +S2. ABSENT: tachycardia GI/Abdominal exam: PRESENT: soft. ABSENT: rebound, rigid, tenderness Neurological exam: PRESENT: alert, awake, oriented to person, oriented to place, oriented to time Skin exam: PRESENT: jaundice Results Laboratory Results: 12/09/19 05:12 12/10/19 15:50 12/10/19 12/10/19 12/10/19 06:05 06:05 15:50 Sodium 132.0 L 132.8 L Potassium 3.0 L* 4.0 D Chloride 98 100 Carbon Dioxide 22 23 Anion Gap 12 10 BUN 8 7 Creatinine 0.78 0.86 Est GFR ( Amer) > 60 > 60 Glucose 78 88 Calcium 7.7 L 7.6 L Magnesium 1.6 Total Bilirubin 23.8 H AST 134 H Alkaline Phosphatase 298 H Total Protein 6.6 Albumin 2.5 L Impressions: Chest X-Ray 12/05/19 18:31 IMPRESSION: Significantly elevated right hemidiaphragm with suspected small right pleural effusion/right basilar opacity. Consider superimposed atelectasis or pneumonia to include aspiration. copyright 2010 [employer]- All Rights Reserved Assessment and Plan - Diagnosis (1) Alcoholic hepatitis Qualifiers: Ascites presence: unspecified Qualified Code(s): K70.10 - Alcoholic hepatitis without ascites Is this a current diagnosis for this admission?: Yes Plan: Elevated transaminases with mild downtrend, hyperbilirubinemia Hepatitis panel 1 month ago was negative and abdominal ultrasound last month showed no evidence of biliary tract obstruction Maddrey discrimination factor score of 34 today--as such I will start on prednisolone 40 mg daily starting today Continue to trend liver enzymes Nutritional support. Will give some hydration. (2) Alcohol use disorder, severe, dependence Is this a current diagnosis for this admission?: Yes Plan: Patient presented with alcohol intoxication. Has not experienced any thorough withdrawal at this time but has required ICU on prior visits for delirium tremens. CIWA scores have been 0 today. Valium discontinued. Will leave Ativan for on an as needed basis. (3) Hypokalemia Is this a current diagnosis for this admission?: Yes Plan: Resolved with aggressive repletions. Lasix discontinued. Continue potassium chloride supplementations. 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 continue lactulose given that he is not currently encephalopathic. 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 Not much ascites. Continue spironolactone. 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 (5) Polysubstance abuse Is this a current diagnosis for this admission?: Yes Plan: UDS positive for benzodiazepines. Monitor for withdrawal. Monitor vitals. (6) Tobacco use disorder, severe, dependence Is this a current diagnosis for this admission?: Yes Plan: Counseled on quitting. NicoDerm patch provided. - Time Time Spent with patient: 15-24 minutes
[2019-12-10] MEDS ORDERED: NORMAL SALINE 1000 ML 1,000 ML IV PRN (18:17)
[2019-12-10] MEDS ORDERED: METHYLPREDNISOLONE INJ 40 MG/1 ML SDV IV ONE ×2 (19:00→22:30)
[2019-12-11] MEDS: HEPARIN SOD (PORCINE) 5,000 UNIT/ML 1 ML VIAL SUBCUT SCH ×3 (05:23→21:03)
[2019-12-11] MEDS: PANTOPRAZOLE SODIUM 40 MG TABLET.DR PO SCH (05:24)
[2019-12-11] MEDS: POTASSIUM CHLORIDE 10 MEQ TABLET.ER PO SCH ×2 (10:05→17:06)
[2019-12-11] MEDS: NICOTINE 14 MG/24 HR PATCH.TD24 TD PRN (10:05)
[2019-12-11] MEDS: FOLIC ACID 1 MG TABLET PO SCH (10:05)
[2019-12-11] MEDS: SPIRONOLACTONE 25 MG TABLET PO SCH ×2 (10:05→21:04)
[2019-12-11] MEDS: METHYLPREDNISOLONE INJ 40 MG/1 ML SDV IV SCH (10:06)
[2019-12-11] MEDS: LACTULOSE SYRUP 20 GM/30 ML UDCUP PO SCH (10:09)
[2019-12-11 13:34] LABS: ALBUMIN 2.6 g/dL (3.5-5.0); ALKALINE PHOSPHATASE 292 U/L (38-126); ANION GAP 13 (5-19); ASPARTATE AMINO TRANSFERASE 134 U/L (17-59); BILIRUBIN,DIRECT 22.1 mg/dL (0.0-0.4); BLOOD UREA NITROGEN 11 mg/dL (7-20); CALCIUM 7.8 mg/dL (8.4-10.2); CARBON DIOXIDE 18 mmol/L (22-30); CHLORIDE 104 mmol/L (98-107); GLUCOSE 112 mg/dL (75-110); POTASSIUM 4.4 mmol/L (3.6-5.0); TOTAL PROTEIN 6.7 g/dL (6.3-8.2)
--- NOTE | 2019-12-11 13:48 | PDOC PROGRESS REPORT ---
Subjective Progress Note for:: 12/11/19 Subjective:: Patient still jaundiced. Bilirubin still keeps going up. Denies any abdominal pain at this time. Reason For Visit: ACUTE ALCOHOL WITHDRAWAL Physical Exam Vital Signs: Temp Pulse Resp BP Pulse Ox 97.7 F 91 19 116/67 93 12/11/19 11:34 12/11/19 11:34 12/11/19 11:34 12/11/19 11:34 12/11/19 11:34 Intake & Output 12/10/19 12/11/19 12/12/19 06:59 06:59 06:59 Intake Total 820 1987 120 Output Total 606 Balance 214 1987 120 Weight 109.5 kg 108.8 kg General appearance: PRESENT: no acute distress, cooperative Neck exam: ABSENT: JVD Respiratory exam: PRESENT: clear to auscultation katerina, unlabored. ABSENT: tachypnea, wheezes Cardiovascular exam: PRESENT: RRR, +S1, +S2. ABSENT: tachycardia GI/Abdominal exam: PRESENT: soft. ABSENT: rebound, rigid, tenderness Neurological exam: PRESENT: alert, awake, oriented to person, oriented to place, oriented to time Results Laboratory Results: 12/09/19 05:12 12/11/19 12:44 12/10/19 12/11/19 15:50 12:44 Sodium 132.8 L 134.7 L Potassium 4.0 D 4.4 Chloride 100 104 Carbon Dioxide 23 18 L Anion Gap 10 13 BUN 7 11 Creatinine 0.86 0.88 Est GFR ( Amer) > 60 > 60 Glucose 88 112 H Calcium 7.6 L 7.8 L Total Bilirubin 24.0 H AST 134 H Alkaline Phosphatase 292 H Total Protein 6.7 Albumin 2.6 L 12/06/19 05:29 Blood Blood Culture - Final NO GROWTH IN 5 DAYS 12/05/19 23:32 Blood Blood Culture - Final NO GROWTH IN 5 DAYS Impressions: Chest X-Ray 12/05/19 18:31 IMPRESSION: Significantly elevated right hemidiaphragm with suspected small right pleural effusion/right basilar opacity. Consider superimposed atelectasis or pneumonia to include aspiration. copyright 2011 [employer]- All Rights Reserved Assessment and Plan - Diagnosis (1) Alcoholic hepatitis Qualifiers: Ascites presence: unspecified Qualified Code(s): K70.10 - Alcoholic hepatitis without ascites Is this a current diagnosis for this admission?: Yes Plan: Viral hepatitis panel 1 month ago was negative and abdominal ultrasound last month showed no evidence of biliary tract obstruction Maddrey discrimination factor score of 34 -->started on Solu-Medrol on 12/11/2019 Nutritional support. Will give some hydration. Bilirubin continues to worsen. Will reevaluate with abdominal ultrasound. (2) Alcohol use disorder, severe, dependence Is this a current diagnosis for this admission?: Yes Plan: Patient presented with alcohol intoxication. Has not experienced any thorough withdrawal at this time but has required ICU on prior visits for delirium tremens. CIWA scores have been 0. Valium discontinued. Will leave Ativan for on an as needed basis. (3) Hypokalemia Is this a current diagnosis for this admission?: Yes Plan: Resolved with aggressive repletions. Lasix discontinued. Continue potassium chloride supplementations. 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 continue lactulose given that he is not currently encephalopathic. 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 Not much ascites. Continue spironolactone. 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 (5) Polysubstance abuse Is this a current diagnosis for this admission?: Yes Plan: UDS positive for benzodiazepines. Monitor for withdrawal. Monitor vitals. (6) Tobacco use disorder, severe, dependence Is this a current diagnosis for this admission?: Yes Plan: Counseled on quitting. NicoDerm patch provided. - Time Time Spent with patient: Less than 15 minutes
--- NOTE | 2019-12-11 17:33 | RADIOLOGY REPORT (SQ) ---
EXAM DESCRIPTION: U/S ABDOMEN LIMITED W/O DOP COMPLETED DATE/TIME: 12/11/2019 5:16 pm REASON FOR STUDY: worsening hyperbilirubinemia COMPARISON: 11/11/2019 TECHNIQUE: Dynamic and static grayscale images acquired of the abdomen and recorded on PACS. Delio herndon selected color Doppler and spectral images recorded. LIMITATIONS: None. FINDINGS: PANCREAS: Not seen. LIVER: Hepatomegaly. Increased echogenicity. No definable mass. Ascites. LIVER VASCULATURE: Normal directional flow of the main portal vein and hepatic veins. GALLBLADDER: Multiple small stones. Sludge. Slight wall thickening. Pericholecystic fluid. ULTRASOUND-DETECTED JUAREZ'S SIGN: Negative. INTRAHEPATIC DUCTS AND COMMON DUCT: Not seen. AORTA: Not seen. RIGHT KIDNEY: Normal size, 11.9 cm. Normal echogenicity. No solid or suspicious masses. No hydroneph rosis. No calcifications. PERITONEAL AND RIGHT PLEURAL SPACE: No ascites or effusions. OTHER: No other significant findings. IMPRESSION: Hepatomegaly. Hepatic steatosis. There is some ascites. Cholelithiasis with thickenin g of gallbladder wall and pericholecystic fluid. Negative sonographic Juarez sign. TECHNICAL DOCUMENTATION: JOB ID: [id number] 2010 [employer]- All Rights Reserved Reading location - IP/workstation name: [email or web address]
[2019-12-12] MEDS: HEPARIN SOD (PORCINE) 5,000 UNIT/ML 1 ML VIAL SUBCUT SCH ×3 (05:24→22:14)
[2019-12-12] MEDS: PANTOPRAZOLE SODIUM 40 MG TABLET.DR PO SCH (05:26)
[2019-12-12 05:46] LABS: ALBUMIN 2.2 g/dL (3.5-5.0); ALKALINE PHOSPHATASE 241 U/L (38-126); ANION GAP 9 (5-19); ASPARTATE AMINO TRANSFERASE 100 U/L (17-59); BLOOD UREA NITROGEN 14 mg/dL (7-20); CALCIUM 7.6 mg/dL (8.4-10.2); CARBON DIOXIDE 19 mmol/L (22-30); CHLORIDE 107 mmol/L (98-107); GLUCOSE 84 mg/dL (75-110); POTASSIUM 4.1 mmol/L (3.6-5.0); TOTAL PROTEIN 5.7 g/dL (6.3-8.2)
[2019-12-12 05:59] LABS: BILIRUBIN,TOTAL 20.4 mg/dL (0.2-1.3)
[2019-12-12] MEDS: LACTULOSE SYRUP 20 GM/30 ML UDCUP PO SCH (10:32)
[2019-12-12] MEDS: FOLIC ACID 1 MG TABLET PO SCH (10:33)
[2019-12-12] MEDS: SPIRONOLACTONE 25 MG TABLET PO SCH ×2 (10:33→22:13)
[2019-12-12] MEDS: POTASSIUM CHLORIDE 10 MEQ TABLET.ER PO SCH ×2 (10:33→17:47)
[2019-12-12] MEDS: METHYLPREDNISOLONE INJ 40 MG/1 ML SDV IV SCH (10:40)
[2019-12-12 16:14] LABS: ALBUMIN 2.3 g/dL (3.5-5.0); ALKALINE PHOSPHATASE 257 U/L (38-126); ANION GAP 9 (5-19); ASPARTATE AMINO TRANSFERASE 96 U/L (17-59); BILIRUBIN,DIRECT 19.5 mg/dL (0.0-0.4); BILIRUBIN,TOTAL 21.2 mg/dL (0.2-1.3); BLOOD UREA NITROGEN 13 mg/dL (7-20); CALCIUM 7.6 mg/dL (8.4-10.2); CARBON DIOXIDE 20 mmol/L (22-30); CHLORIDE 104 mmol/L (98-107); GLUCOSE 94 mg/dL (75-110); POTASSIUM 4.3 mmol/L (3.6-5.0); TOTAL PROTEIN 5.8 g/dL (6.3-8.2)
--- NOTE | 2019-12-12 17:35 | PDOC PROGRESS REPORT ---
Subjective Progress Note for:: 12/12/19 Subjective:: Patient still jaundiced.Bowel ,movement was solid today. Denies any abdominal pain at this time. Reason For Visit: ACUTE ALCOHOL WITHDRAWAL Physical Exam Vital Signs: Temp Pulse Resp BP Pulse Ox 97.8 F 92 18 100/54 L 100 12/12/19 15:21 12/12/19 15:21 12/12/19 15:21 12/12/19 15:21 12/12/19 15:21 Intake & Output 12/11/19 12/12/19 12/13/19 06:59 06:59 06:59 Intake Total 1987 960 Output Total 505 Balance 1987 455 Weight 108.8 kg 107.9 kg General appearance: PRESENT: no acute distress, cooperative Neck exam: ABSENT: JVD Respiratory exam: PRESENT: clear to auscultation katerina GI/Abdominal exam: PRESENT: soft. ABSENT: tenderness Neurological exam: PRESENT: alert, awake Skin exam: PRESENT: jaundice Results Laboratory Results: 12/09/19 05:12 12/12/19 15:37 12/12/19 12/12/19 04:48 15:37 Sodium 134.8 L 132.9 L Potassium 4.1 4.3 Chloride 107 104 Carbon Dioxide 19 L 20 L Anion Gap 9 9 BUN 14 13 Creatinine 0.87 0.88 Est GFR ( Amer) > 60 > 60 Glucose 84 94 Calcium 7.6 L 7.6 L Total Bilirubin 20.4 H D 21.2 H AST 100 H 96 H Alkaline Phosphatase 241 H 257 H Total Protein 5.7 L 5.8 L Albumin 2.2 L 2.3 L Impressions: Chest X-Ray 12/05/19 18:31 IMPRESSION: Significantly elevated right hemidiaphragm with suspected small right pleural effusion/right basilar opacity. Consider superimposed atelectasis or pneumonia to include aspiration. copyright 2011 [employer]- All Rights Reserved Abdomen Ultrasound 12/11/19 00:00 IMPRESSION: Hepatomegaly. Hepatic steatosis. There is some ascites. Cholelithiasis with thickening of gallbladder wall and pericholecystic fluid. Negative sonographic Wang sign. Assessment and Plan - Diagnosis (1) Alcoholic hepatitis Qualifiers: Ascites presence: unspecified Qualified Code(s): K70.10 - Alcoholic hepatit is without ascites Is this a current diagnosis for this admission?: Yes Plan: Viral hepatitis panel 1 month ago was negative and abdominal ultrasound last month showed no evidence of biliary tract obstruction Maddrey discrimination factor score of 34 -->started on Solu-Medrol on 12/11/2019 Nutritional support. Will give some hydration. Abd us shows no obstruction of CBD (2) Alcohol use disorder, severe, dependence Is this a current diagnosis for this admission?: Yes Plan: Patient presented with alcohol intoxication. Has not experienced any thorough withdrawal at this time but has required ICU on prior visits for delirium tremens. CIWA scores have been 0. Valium discontinued. Will leave Ativan for on an as needed basis. (3) Hypokalemia Is this a current diagnosis for this admission?: Yes Plan: Resolved with aggressive repletions. Lasix discontinued. Continue potassium chloride supplementations. (4) Chronic liver disease due to alcohol Is this a current diagnosis for this admission?: Yes Plan: Patient clearly has chronic liver disease secondary to alcohol likely cirrhosis. continue lactulose given that he is not currently encephalopathic. 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 Not much ascites. Continue s pironolactone. 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 (5) Polysubstance abuse Is this a current diagnosis for this admission?: Yes (6) Tobacco use disorder, severe, dependence Is this a current diagnosis for this admission?: Yes - Time Time Spent with patient: Less than 15 minutes
[2019-12-12] MEDS ORDERED: DIPHENHYDRAMINE HCL 50 MG CAPSULE PO PRN (18:22)
[2019-12-12] MEDS ORDERED: CHOLESTYRAMINE 4 GM PACKET PO SCH (20:00)
[2019-12-12] MEDS ORDERED: CHOLESTYRAMINE 4 GM PACKET ONE (21:51)
[2019-12-12] MEDS ORDERED: MELATONIN 3 MG TABLET PO SCH (22:00)
[2019-12-13] MEDS: HEPARIN SOD (PORCINE) 5,000 UNIT/ML 1 ML VIAL SUBCUT SCH (05:20)
[2019-12-13] MEDS: PANTOPRAZOLE SODIUM 40 MG TABLET.DR PO SCH (05:24)
[2019-12-13 06:51] LABS: ALBUMIN 2.2 g/dL (3.5-5.0); ALKALINE PHOSPHATASE 239 U/L (38-126); ANION GAP 8 (5-19); ASPARTATE AMINO TRANSFERASE 105 U/L (17-59); BILIRUBIN,DIRECT 17.5 mg/dL (0.0-0.4); BILIRUBIN,TOTAL 19.2 mg/dL (0.2-1.3); BLOOD UREA NITROGEN 11 mg/dL (7-20); CALCIUM 7.9 mg/dL (8.4-10.2); CARBON DIOXIDE 20 mmol/L (22-30); CHLORIDE 106 mmol/L (98-107); GLUCOSE 82 mg/dL (75-110); POTASSIUM 3.9 mmol/L (3.6-5.0); TOTAL PROTEIN 5.8 g/dL (6.3-8.2)
[2019-12-13] MEDS: POTASSIUM CHLORIDE 10 MEQ TABLET.ER PO SCH (09:53)
[2019-12-13] MEDS: FOLIC ACID 1 MG TABLET PO SCH (09:53)
[2019-12-13] MEDS: SPIRONOLACTONE 25 MG TABLET PO SCH (09:53)
[2019-12-13] MEDS: METHYLPREDNISOLONE INJ 40 MG/1 ML SDV IV SCH (09:55)
[2019-12-13 10:44] VITALS: BP 113/65
--- NOTE | 2019-12-13 11:38 | PDOC DISCHARGE SUMMARY ---
Impression - Admit/DC Date/PCP Admission Date/Primary Care Provider: 12/05/19 21:41 ROXANNE GRAY MD Discharge Date: 12/13/19 - Discharge Diagnosis (1) Alcoholic hepatitis Is this a current diagnosis for this admission?: Yes (2) Alcohol use disorder, severe, dependence Is this a current diagnosis for this admission?: Yes (3) Hypokalemia Is this a current diagnosis for this admission?: Yes (4) Chronic liver disease due to alcohol Is this a current diagnosis for this admission?: Yes (5) Polysubstance abuse Is this a current diagnosis for this admission?: Yes (6) Tobacco use disorder, severe, dependence Is this a current diagnosis for this admission?: Yes - Additional Information Resuscitation Status: Full Code Discharge Diet: As Tolerated Discharge Activity: Activity As Tolerated Referrals: ROXANNE GRAY MD [Primary Care Provider] - 12/17/19 10:00 am YESSICA SALDIVAR MD [ACTIVE STAFF] - 12/19/19 1:45 pm Prescriptions: Spironolactone [Aldactone 25 mg Tablet] 25 mg PO Q12 #60 tablet Folic Acid [Folvite 1 mg Tablet] 1 mg PO DAILY #30 tablet Cholestyramine [Questran 4 gm Packet] 4 gm PO TID 20 Days #60 packet Home Medications: Lactulose [Cephulac Syrup 20 gm/30 ml Udcup] 20 gm PO DAILY 30 Days #1000 ml 11/20/19 Pantoprazole Sodium [Protonix [address] Tablet] 40 mg PO DAILY #14 tablet.dr 11/20/19 Sucralfate [Carafate 1 gm Tablet] 1 gm PO ACHS #60 tablet 11/20/19 Albuterol Sulfate [Proventil Hfa] 6.7 gm IH Q4HP PRN 12/06/19 Folic Acid [Folvite 1 mg Tablet] 1 mg PO DAILY #30 tablet 12/10/19 Potassium Chloride 40 meq PO BID #20 tablet.er 12/10/19 Spironolactone [Aldactone 25 mg Tablet] 25 mg PO Q12 #60 tablet 12/10/19 Cholestyramine [Questran 4 gm Packet] 4 gm PO TID 20 Days #60 packet 12/13/19 History of Present Illiness History of Present Illness: DON REYNAGA is a 49 year old male who presented to the emergency room with acute alcohol withdrawal symptoms. He admits a multi-decade history of chronic alcoholism with alcoholic cirrhosis and further admits to drinking a pint of bourbon after waking up this morning. He finished his bourbon at about noon today and has not had any alcohol intake since. Since that time he has been experiencing progressively worsening malaise, ague, nausea and diarrhea. He admits to numerous prior similar episodes related to alcohol withdrawal. He denies other associated or accompanying signs and symptoms. He has not identified any additional aggravating or ameliorating factors for his alcohol withdrawal symptoms. In the emergency room he was found to have a blood alcohol of 197 and was also noted to have a bilirubin of 18. He was tachycardic and mildly hypotensive initially but improved with IV fluids. He was also noted to be hypokalemic. He was subsequently admitted to the hospital for further evaluation and acute detoxification treatment. Hospital Course Hospital Course: (1) Alcoholic hepatitis Qualifiers: Ascites presence: unspecified Qualified Code(s): K70.10 - Alcoholic hepatitis without ascites Is this a current diagnosis for this admission?: Yes Plan: Elevated transaminases, hyperbilirubinemia Maddrey discrimination factor score was over 32 and as such patient was tried on Solu-Medrol but had no effect with patient's alcoholic hepatitis and as such was later discontinued. Viral hepatitis panel 1 month ago was negative and abdominal ultrasound last month showed no evidence of biliary tract obstruction Repeat abdominal ultrasound right upper quadrant also showed no biliary tract obstruction Treated with supportive conservative management Cholestyramine added for pruritus secondary to jaundice Patient encouraged of the significance of alcohol abstinence Plan to follow-up with GI and will need commercial litigation associate (2) Alcohol use disorder, severe, dependence Is this a current diagnosis for this admission?: Yes Plan: Patient presented with alcohol intoxication. Patient showed no evidence of alcohol withdrawal during stay. Successfully weaned off benzodiazepines without any withdrawal subsequently. (3) Hypokalemia Is this a current diagnosis for this admission?: Yes Plan: Discharged with potassium supplements. Possible etiologies include Lasix, rifamixin/Lactulose-->rifamixin d/cd. Lactulose at 20g daily now. No evidence of RTA. 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 MELD-Na score of 25 indicating 15% 3-month mortality if cirrhotic but patient is clearly not a liver transplant candidate at this time due to his very recent polysubstance and alcohol abuse. Lactulose, spironolactone. Unable to add Lasix due to hypokalemia. 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 Not much ascites. Scheduled to follow-up with Dr. Saldivar for further care. (5) Polysubstance abuse Is this a current diagnosis for this admission?: Yes Plan: Advised against substance abuse. (6) Tobacco use disorder, severe, dependence Is this a current diagnosis for this admission?: Yes Plan: Counseled on quitting. Physical Exam Vital Signs: Temp Pulse Resp BP Pulse Ox 97.6 F 101 H 20 113/65 94 12/13/19 10:40 12/13/19 10:40 12/13/19 10:40 12/13/19 10:40 12/13/19 10:40 Intake & Output 12/12/19 12/13/19 12/14/19 06:59 06:59 06:59 Intake Total 960 2425 Output Total 505 200 Balance 455 2225 Weight 107.9 kg 107.9 kg General appearance: PRESENT: no acute distress, cooperative Neck exam: ABSENT: JVD Respiratory exam: PRESENT: unlabored. ABSENT: tachypnea Skin exam: PRESENT: jaundice Results Laboratory Results: WBC 11.5 10^3/uL (4.0-10.5) H 12/09/19 05:12 RBC 2.40 10^6/uL (4.35-5.55) L 12/09/19 05:12 Hgb 8.6 g/dL (13.5-17.0) L 12/09/19 05:12 Hct 25.7 % (37.9-51.0) L 12/09/19 05:12 MCV 107 fl (80-97) H 12/09/19 05:12 MCH 36.0 pg (27.0-33.4) H 12/09/19 05:12 MCHC 33.6 g/dL (32.0-36.0) 12/09/19 05:12 RDW 18.7 % (11.5-14.0) H 12/09/19 05:12 Plt Count 220 10^3/uL (150-450) 12/09/19 05:12 Lymph % (Auto) Not Reportable 12/08/19 07:25 Graves % (Auto) Not Reportable 12/08/19 07:25 Eos % (Auto) Not Reportable 12/08/19 07:25 Baso % (Auto) Not Reportable 12/08/19 07:25 Absolute Neuts (auto) Not Reportable 12/08/19 07:25 Absolute Lymphs (auto) Not Reportable 12/08/19 07:25 Absolute Monos (auto) Not Reportable 12/08/19 07:25 Absolute Eos (auto) Not Reportable 12/08/19 07:25 Absolute Basos (auto) Not Reportable 12/08/19 07:25 Total Counted 100 12/08/19 07:25 Seg Neutrophils % Not Reportable 12/08/19 07:25 Seg Neuts % (Manual) 80 % (42-78) H 12/08/19 07:25 Band Neutrophils % 1 % (3-5) L 12/08/19 07:25 Lymphocytes % (Manual) 15 % (13-45) 12/08/19 07:25 Monocytes % (Manual) 3 % (3-13) 12/08/19 07:25 Eosinophils % (Manual) 1 % (0-6) 12/08/19 07:25 Basophils % (Manual) 0 % (0-2) 12/08/19 07:25 Abs Neuts (Manual) 9.6 10^3/uL (1.7-8.2) H 12/08/19 07:25 Abs Lymphs (Manual) 1.8 10^3/uL (0.5-4.7) 12/08/19 07:25 Abs Monocytes (Manual) 0.4 10^3/uL (0.1-1.4) 12/08/19 07:25 Absolute Eos (Manual) 0.1 10^3/uL (0.0-0.6) 12/08/19 07:25 Abs Basophils (Manual) 0.0 10^3/uL (0.0-0.2) 12/08/19 07:25 Toxic Vacuolation PRESENT 12/08/19 07:25 Platelet Comment ADEQUATE 12/08/19 07:25 Polychromasia 1+ 12/08/19 07:25 Poikilocytosis SLIGHT 12/05/19 18:08 Anisocytosis 2+ 12/08/19 07:25 Macrocytosis 2+ 12/08/19 07:25 Target Cells 1+ 12/05/19 18:08 Tear Drop Cells SLIGHT 12/05/19 18:08 PT 17.7 SEC (11.4-15.4) H 12/09/19 05:12 INR 1.44 12/09/19 05:12 APTT 40.6 SEC (23.5-35.8) H 12/05/19 18:56 Sodium 134.1 mmol/L (137-145) L 12/13/19 05:55 Potassium 3.9 mmol/L (3.6-5.0) 12/13/19 05:55 Chloride 106 mmol/L (98-107) 12/13/19 05:55 Carbon Dioxide 20 mmol/L (22-30) L 12/13/19 05:55 Anion Gap 8 (5-19) 12/13/19 05:55 BUN 11 mg/dL (7-20) 12/13/19 05:55 Creatinine 0.84 mg/dL (0.52-1.25) 12/13/19 05:55 Est GFR ( Amer) > 60 (>60) 12/13/19 05:55 Est GFR (MDRD) Non-Af > 60 (>60) 12/13/19 05:55 Glucose 82 mg/dL (75-110) 12/13/19 05:55 Calcium 7.9 mg/dL (8.4-10.2) L 12/13/19 05:55 Magnesium 1.6 mg/dL (1.6-2.3) 12/10/19 06:05 Total Bilirubin 19.2 mg/dL (0.2-1.3) H 12/13/19 05:55 Direct Bilirubin 17.5 mg/dL (0.0-0.4) H 12/13/19 05:55 Neonat Total Bilirubin Not Reportable 12/13/19 05:55 Neonat Direct Bilirubin Not Reportable 12/13/19 05:55 Neonat Indirect Bili Not Reportable 12/13/19 05:55 AST 105 U/L (17-59) H 12/13/19 05:55 ALT 52 U/L (<50) H 12/13/19 05:55 Alkaline Phosphatase 239 U/L (38-126) H 12/13/19 05:55 Ammonia 36.7 umol/L (9-33) H 12/06/19 17:52 Total Protein 5.8 g/dL (6.3-8.2) L 12/13/19 05:55 Albumin 2.2 g/dL (3.5-5.0) L 12/13/19 05:55 Lipase 385.6 U/L (23-300) H 12/05/19 18:08 Urine Color PHILOMENA 12/05/19 17:18 Urine Appearance SLIGHTLY-CLOUDY 12/05/19 17:18 Urine pH 6.0 (5.0-9.0) 12/05/19 17:18 Ur Specific Melvin 1.017 12/05/19 17:18 Urine Protein 30 mg/dL (NEGATIVE) H 12/05/19 17:18 Urine Glucose (UA) NEGATIVE mg/dL (NEGATIVE) 12/05/19 17:18 Urine Ketones NEGATIVE mg/dL (NEGATIVE) 12/05/19 17:18 Urine Blood NEGATIVE (NEGATIVE) 12/05/19 17:18 Urine Nitrite (Reflex) NEGATIVE (NEGATIVE) 12/05/19 17:18 Urine Bilirubin MODERATE (NEGATIVE) H 12/05/19 17:18 Urine Urobilinogen 4.0 mg/dL (<2.0) H 12/05/19 17:18 Leukocyte Esterase Rfl NEGATIVE (NEGATIVE) 12/05/19 17:18 Urine RBC (Auto) 0 /HPF 12/05/19 17:18 U Hyaline Cast (Auto) 7 /LPF 12/05/19 17:18 Urine Bacteria (Auto) 2+ /HPF 12/05/19 17:18 Urine WBC (Reflex) 4 /HPF 12/05/19 17:18 Squamous Epi Cells Auto 1 /HPF 12/05/19 17:18 Urine Mucus (Auto) OCC /LPF 12/05/19 17:18 Urine Ascorbic Acid NEGATIVE (NEGATIVE) 12/05/19 17:18 Urine Opiates Screen NEGATIVE 12/05/19 17:18 Urine Methadone Screen NEGATIVE 12/05/19 17:18 Ur Barbiturates Screen NEGATIVE 12/05/19 17:18 Ur Phencyclidine Scrn NEGATIVE 12/05/19 17:18 Ur Amphetamines Screen NEGATIVE 12/05/19 17:18 U Benzodiazepines Scrn UNCONFIRMED POSITIVE 12/05/19 17:18 Urine Cocaine Screen NEGATIVE 12/05/19 17:18 U Marijuana (THC) Screen NEGATIVE 12/05/19 17:18 Serum Alcohol 191 mg/dL (NONE DETECTED) 12/05/19 18:08 Impressions: Chest X-Ray 12/05/19 18:31 IMPRESSION: Significantly elevated right hemidiaphragm with suspected small right pleural effusion/right basilar opacity. Consider superimposed atelectasis or pneumonia to include aspiration. copyright 2011 [employer]- All Rights Reserved Abdomen Ultrasound 12/11/19 00:00 IMPRESSION: Hepatomegaly. Hepatic steatosis. There is some ascites. Cholelithiasis with thickening of gallbladder wall and pericholecystic fluid. Negative sonographic Wang sign. Plan Time Spent: Less than 30 Minutes Stroke Is this a Stroke Patient?: No Acute Heart Failure - Is this a Heart Failure Patient?: No
== END 2019-12-13 11:30 | disposition home or self-care (01) | DRG 897 ==
LOC: ER 17:03 → EH 21:41 → 3S 12-06 00:49
PROVIDERS: ADMIT Emergency Medicine; ATTEND Internal Medicine
DX: F10.231 Alcohol dependence with withdrawal delirium (principal); K70.10 Alcoholic hepatitis without ascites; K70.30 Alcoholic cirrhosis of liver without ascites; E87.6 Hypokalemia; F19.10 Other psychoactive substance abuse, uncomplicated; Y90.6 Blood alcohol level of 120-199 mg/100 ml; I10 Essential (primary) hypertension; J44.9 Chronic obstructive pulmonary disease, unspecified; E66.9 Obesity, unspecified; K21.9 Gastro-esophageal reflux disease without esophagitis; F32.9 Major depressive disorder, single episode, unspecified; D64.9 Anemia, unspecified; F14.10 Cocaine abuse, uncomplicated; F12.10 Cannabis abuse, uncomplicated; F17.210 Nicotine dependence, cigarettes, uncomplicated; Z88.8 Allergy status to other drugs, medicaments and biological substances; Z79.899 Other long term (current) drug therapy; Z68.36 Body mass index [BMI] 36.0-36.9, adult; Z82.49 Family history of ischemic heart disease and other diseases of the circulatory system
CPT/HCPCS: 36415; 71045; 76705; 80048; 80053; 80307; 81001; 82140; 83690; 83735; 84132; 85025; 85027; 85610; 85730; 87040; 87070; 94640; 96361; 96365; 96366; 96375; 99285; A9270-GY; J1644; J1940; J2060; J2405; J2550; J2920; J3360; J3411; J3475; J3480; J3490; J7030; J7042; J7614